=== PATIENT | male | born 1985 | race Two or more races ===

== ENCOUNTER 2024-01-19 11:56 | Outpatient (AMB) | payer OTHER, SELFPAY ==
--- NOTE | 2024-01-19 12:29 | A.OFFPC_ITS ---
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 pt would like to talk about right shoulder and right wrist pain. 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 Will order labs. Pt has a hx of sciatica and a lumbar disc herniation. He also has a hx of tinnitus. Pt's blood pressure is elevated. Will have him monitor his blood pressure at home and drop off readings. [facility] [place] Medical History (Updated 01/19/24 @ 13:16 by FELIPE Lamar-DEBBIE) Tinnitus Sciatica Lumbar disc herniation Social History Housing: House Patient Tobacco Use Status: Former Tobacco user e-Cigarette/Vaping Use: Never Used service: Yes Current occupational status: employed Cognitive needs: No Hearing needs: No Vision needs: No Questionnaire PHQ-9 Over the last 2 weeks, how often have you been bothered by any of the following problems? 1. Little interest or pleasure in doing things: not at all 2. Feeling down, depressed, or hopeless: not at all 3. Trouble falling or staying asleep, or sleeping too much: nearly every day 4. Feeling tired or having little energy: nearly every day 5. Poor appetite or overeating: not at all 6. Feeling bad about yourself - or that you are a failure or have let yourself or your family down: not at all 7. Trouble concentrating on things, such as reading the newspaper or watching television: not at all 8. Moving or speaking so slowly that other people could have noticed. Or the opposite - being so fidgety or restless that you have been moving around a lot more than usual: not at all 9. Thoughts that you would be better off or of hurting yourself in some way: not at all Total score: 6 Depression Screening Interpretation: Negative Depression Screening Done: Yes 32227 - PHQ-9 Billing: Yes Source: Developed by Drs. Kavon Feliz, Belen Lopez, dAalid Smith and colleagues, with an educational fred from [employer]. Thrive Questionnaire Date Thrive assessed: 01/19/24 I am a: Patient What is your living situation today?: I have a steady place to live Within the past 12 months, did the food you bought not last and you didn't have the money to get more?: Never true Within the past 12 months, did you worry whether your food would run out before you got money to buy more?: Never true Do you have trouble paying for medicines?: No Do you have trouble getting transportation to medical appointments?: No Do you have trouble paying your heating and electricity bill?: No Do you have trouble taking care of your child, family member or friend?: No Do you have trouble with day-to-day activities such as bathing, preparing meals, shopping, managing finances, etc.?: No Are you currently unemployed and looking for a job?: No Are you interested in more education?: No Currently or been in a relationship where the following occur: I choose not to answer this question THRIVE Score: 0 AUDIT C Alcohol Use Questionnaire (AUDIT-C) 1. How often do you have a drink containing alcohol?: Monthly or less 2. How many drinks containing alcohol do you have on a typical day when you are drinking?: 1 or 2 3. How often do you have six or more drinks on one occasion?: Never Total Score: 1 Score Reviewed/Action Taken: No PRICE-7 AMB Questionnaire PRICE-7 Date PRICE - 7 assessed: 01/19/24 Feeling nervous, anxious, or on edge: 0 = Not at all Not being able to stop or control worryin = Not at all Worrying too much about different things: 0 = Not at all Trouble relaxin = Not at all Being so restless that it is hard to sit still: 0 = Not at all Becoming easily annoyed or irritable: 0 = Not at all Feeling afraid as if something awful might happen: 0 = Not at all Total PRICE-7 score (0-4 normal; 5-9 mild; 10-14 moderate; 15-21 severe): 0 Source: Developed by Drs. Kavon Feliz, Belen Lopez, Adalid Smith and colleagues, with an educational fred from [employer]. PRICE-7 Assessment Billing PRICE-7 Assessment Tool: PRICE-7 Assessment 95957 Review of Systems Const Denies chills and Denies fever(s) Eyes Denies blurry vision ENT Denies vertigo, Denies dizziness and Denies sore throat Card Denies chest pain at rest, Denies chest pain with activity, Denies diaphoresis, Denies dyspnea and Denies dyspnea on exertion Resp Denies cough, Denies dyspnea, Denies dyspnea on exertion and Denies wheezing GI Denies abdominal pain, Denies melena, Denies hematochezia, Denies constipation, Denies diarrhea and Denies loose stools Denies hematuria Musc Denies numbness and Denies tingling Skin/Breast Denies lesions Neuro Denies vertigo, Denies dizziness, Denies numbness and Denies tingling Psych Denies anxiety, Denies depression, Denies homicidal ideation, Denies suicidal ideation and Denies other (substance abuse) Aller/Immun Denies wheezing Physical exam (Primary Care) Vital Signs: Last Vital Signs Pulse 67 01/19/24 12:32 BP 124/92 H 01/19/24 12:32 Pulse Ox 98 01/19/24 12:32 Oxygen Delivery Method Room Air 01/19/24 12:32 Tobacco/Smoking Status: Tobacco use Status Tobacco use date assessed 01/19/24 01/19/24 12:35 Patient Tobacco Use Status Former Tobacco user 01/19/24 12:35 e-Cigarette/Vaping Use Never Used 01/19/24 12:35 PHQ-9: PHQ-9 Score PHQ-9: Total score 6 01/19/24 12:59 Depression Screening Interpretation: Negative Thrive Assessment: Date of Thrive Assessment Date Thrive assessed 01/19/24 01/19/24 12:40 Currently or been in a relationship where the following occur: I choose not to answer this question Const General: cooperative Nutritional Appearance: well nourished Orientation/consciousness: patient oriented x3 HENMT Head: Yes normal to inspection, Yes normocephalic and Yes atraumatic Ears: TM's normal bilaterally Eyes General: appearance normal, both eyes and all related structures Alignment and Position: alignment normal and position normal Neck Neck: Yes normal visual inspection and Yes no lymphadenopathy Thyroid: Thyroid normal Resp Effort & Inspection: normal respiratory effort Auscultation: clear to auscultation bilaterally Cardio Rate: regular rate Rhythm: regular rhythm Heart sounds: S1 normal heart sound present, S2 normal heart sound present and no murmurs GI Palpation (GI): Soft to palpation and nontender Auscultation: normal bowel sounds Male General Exam: Yes normal external exam Penis: normal penis Scrotum: scrotum normal, testes descended bilaterally and no inguinal hernias Testes: no testicular mass Skin Rashes: no rashes Neuro General: patient oriented x3, moves all extremities, no focal motor deficits and deep tendon reflexes 2+ bilaterally Romberg Test: Negative Psych Appearance: grossly normal Mental Status: mental status grossly normal Speech and movement: Normal speech and movement present Affect: normal affect Attitude: cooperative Thought process: Normal thought process present Thought content: Normal thought content present Insight: Good insight present (Psych) Judgement: Good judgement present (Psych) Assessment and Plan Assessment & Plan (1) Physical exam: Code(s): Z00.00 - Encounter for general adult medical examination without abnormal findings Plan: Labs ordered (2) Elevated BP without diagnosis of hypertension: Code(s): R03.0 - Elevated blood-pressure reading, without diagnosis of hypertension Plan: Will have pt monitor his BP at home and drop off readings Plan The patient agreed to the use of a bio medical technician for this encounter. Scribed for LOULOU Womack by Anitha Crawley bio medical technician, on 01/19/2024 at 12:55 EST. Orders: Orders UA CC w/rflx Micro + Cult Today Z00.00 - Encounter for general adult medical examination without abnormal findings Complete Blood Count Auto Diff Today Z00.00 - Encounter for general adult medical examination without abnormal findings Comprehensive Barton. Panel Fast Today Z00.00 - Encounter for general adult medical examination without abnormal findings TSH reflex Free T4 Today Z00.00 - Encounter for general adult medical examination without abnormal findings Lipid Panel Today Z00.00 - Encounter for general adult medical examination without abnormal findings Coding Level of Care Code New Pt Prev Care 40-64y(83124) Diagnoses Physical exam Z00.00 Elevated BP without diagnosis of hypertension R03.0 Additional Codes PRICE-7 Assessment Billing - PRICE-7 Assessment Tool: PRICE-7 Assessment 58787 ([id number])
[2024-01-19 12:32] VITALS: BP 124/92; PULSE 67; O2SAT 98
[2024-01-19 13:12] VITALS: BP 124/90
== END 2024-01-19 13:23 | disposition home or self-care (01) ==
PROVIDERS: PCP Nurse Practitioner Family; Visit Provider Nurse Practitioner Family
DX: Z00.00 Encounter for general adult medical examination without abnormal findings (principal); R03.0 Elevated blood-pressure reading, without diagnosis of hypertension
CPT/HCPCS: 99386

== ENCOUNTER 2024-07-04 08:34 | Outpatient (AMB) | payer OTHER, SELFPAY ==
--- NOTE | 2024-07-04 07:21 | A.OFFVIS_ITS ---
Intake Visit Reasons: Discuss anxiety iPhone Allergies No Known Allergies Allergy (Verified 01/19/24 12:54) HPI HPI Discuss anxiety iPhone : Details: Patient seems very stressed. He reports very much increased anxiety. He reports he used to have outlet with riding his bike but he can not do this due to wrist discomfort bilat and numbness of his hands bilaterally. I will order EMG testing, denies any resent trauma to hands/wrists. He has already reached out to someone through the and is getting some psychiatric help in the form of a therapist. He denies any SI or HI. He further reports ongoing stressors at home, with his marriage, and other family stressors. I reinforced the importance of him following up with a therapist as he is, and I will start a low-dose Buspar. I will follow up with him in approximately 2 weeks via telehealth. ON LICENSE OF [facility] Medical History (Updated 07/04/24 @ 07:40 by LOULOU Lamar) Tinnitus Sciatica Lumbar disc herniation Social History Housing: House Patient Tobacco Use Status: Former Tobacco user e-Cigarette/Vaping Use: Never Used service: Yes Current occupational status: employed Cognitive needs: No Hearing needs: No Vision needs: No Assessment & Plan Assessment & Plan (1) Bilateral hand numbness: Code(s): R20.0 - Anesthesia of skin Category: Medical Plan: EMG/nerve conduction test in ordered. (2) Anxiety: Code(s): F41.9 - Anxiety disorder, unspecified Category: Medical Plan: starting buspirone, low dose (3) High perceived stress: Code(s): F43.9 - Reaction to severe stress, unspecified Category: Medical Plan Patient has an off a lot of stress going on and very little outlet in the form of biking/exercise currently. He is currently seeking psychiatric help in the form of a therapist via the [facility]. He denies any active suicidal ideation or homicidal ideation. I will start him on a low-dose BuSpar on and follow up with him in the near future. I am having patient access the portal so he can communicate with us as well. He knows he can report to the ER with any worsening symptoms/crisis. Orders: Orders NE electromyogram (EMG) Today R20.0 - Anesthesia of skin NE nerve conduction velocity Today R20.0 - Anesthesia of skin Medications: New buspirone 5 mg PO BID 30 days 60 tabs 2RF Coding Level of Care Code Tele Est Pt Level 3 (68910) Diagnoses Bilateral hand numbness R20.0 Anxiety F41.9 High perceived stress F43.9
== END 2024-07-04 14:05 | disposition home or self-care (01) ==
LOC: HO.HMCC 08:34
PROVIDERS: PCP Nurse Practitioner Family; Visit Provider Nurse Practitioner Family
DX: R20.0 Anesthesia of skin (principal); F41.9 Anxiety disorder, unspecified; F43.9 Reaction to severe stress, unspecified

== ENCOUNTER → 2024-07-04 08:34 | Outpatient (BNVA) | payer OTHER, SELFPAY | PROVIDERS: PCP Nurse Practitioner Family; Visit Provider Nurse Practitioner Family | DX: R20.0 Anesthesia of skin (principal); F41.9 Anxiety disorder, unspecified; F43.9 Reaction to severe stress, unspecified ==

== ENCOUNTER 2024-07-24 06:09 | Outpatient (REF) | payer OTHER, SELFPAY ==
--- NOTE | 2024-07-24 12:05 | EMG_ITS ---
Bilateral median and ulnar motor and sensory studies were performed. Bilateral radial sensory studies were performed. Bilateral median and lateral antecubital brachial sensory studies were performed and paraspinal muscles were tested with a needle. IMPRESSION: Mild bilateral median neuropathy across carpal tunnel. MD ROBERT Lynn/TAMIKO / [id number]
== END 2024-07-24 06:10 | disposition home or self-care (01) ==
LOC: HO.NEURO 06:09
PROVIDERS: PCP Nurse Practitioner Family; Visit Provider Nurse Practitioner Family
DX: R20.0 Anesthesia of skin (principal)
CPT/HCPCS: 95886; 95913

== ENCOUNTER 2024-07-25 11:23 | Outpatient (AMB) | payer OTHER, SELFPAY ==
--- NOTE | 2024-07-25 11:27 | A.OFFPC_ITS ---
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 The onset of these symptoms predates the current visit. The patient was previously prescribed a low dose of medication at 5 mg twice a day, which has been helpful. However, he expresses concerns regarding the persistence of symptoms and inquires about increasing the dosage. He reports that his stress is compounded by work-related pressures and his involvement in the , as well as family challenges, including the possibility of a future divorce. He denies any suicidal ideation, homicidal ideation, chest pain, shortness of breath, blurred vision, headache, or dizziness. The patient has noted a subjective improvement in his general demeanor since the initial visit. He does see a social wo rker/therapist. Social History Health Maintenance Review of Systems - Psychiatric: Reports stress and anxiet y. Denies suicidal ideation or homicidal ideation. - Respiratory: Denies shortness of breat h. - Cardiovascular: Denies chest pain. - Neurological: Denies blurred vision, h eadache, or dizziness. Physical Exam General: Cooperative, healthy appearing, comfortable, no acute distress and well developed Orientation: Patient oriented x3 Limitations: No limitations Head: Normal to inspection Nose: Normal external nose present Face and sinus: Normal facial exam Eyes: Appearance normal, both eyes and all related structures Respiratory: Normal respiratory effort and able to speak in complete sentences. Clear to auscultation bilaterally Cardiovascular: Regular rate and rhythm. Normal S1 and S2 GI: Normal to inspection. Soft to palpation and nontender Neuro: Patient oriented x3 Extremities: Normal to inspection psych: A+Ox3, calm, good judgement, good thought process Results Plan - Stress and Anxiety: I will consider in creasing the current medication dosage to 10 mg twice a day to better manage the patient?s anxiety and stress levels. Patient was informed and verbally consented to the use of an ambient scribe for clinic note documentation during this visit. Discussion Notes I discussed the ongoing management of the patient's stress and anxiety. We reviewed the potential increase in medication dosage to 10 mg twice a day. Risks, benefits, and potential side effects of increasing the medication were explained to the patient. The patient did not express any concerns regarding this plan and verbalized understanding. Follow-up visits and considerations for adjustments in therapy may be necessary based on the patient's response to the adjusted dosage. Patient Instructions [facility] Medical History Tinnitus Sciatica Lumbar disc herniation Surgical History No pertinent past surgical history Social History Housing: House Patient Tobacco Use Status: Former Tobacco user e-Cigarette/Vaping Use: Never Used service: Yes Current occupational status: employed Cognitive needs: No Hearing needs: No Vision needs: No Questionnaire PHQ-9 Over the last 2 weeks, how often have you been bothered by any of the following problems? 1. Little interest or pleasure in doing things: several days 2. Feeling down, depressed, or hopeless: not at all 3. Trouble falling or staying asleep, or sleeping too much: more than half the days 4. Feeling tired or having little energy: several days 5. Poor appetite or overeating: several days 6. Feeling bad about yourself - or that you are a failure or have let yourself or your family down: not at all 7. Trouble concentrating on things, such as reading the newspaper or watching television: not at all 8. Moving or speaking so slowly that other people could have noticed. Or the opposite - being so fidgety or restless that you have been moving around a lot more than usual: not at all 9. Thoughts that you would be better off or of hurting yourself in some way: not at all Total score: 5 Depression Screening Interpretation: Negative Depression Screening Done: Yes 77269 - PHQ-9 Billing: Yes Source: Developed by Drs. Kavon Feliz, Belen Lopez, Adalid Smith and colleagues, with an educational fred from [facility]. Thrive Questionnaire Date Thrive assessed: 07/25/24 I am a: Patient What is your living situation today?: I have a steady place to live Within the past 12 months, did the food you bought not last and you didn't have the money to get more?: Never true Within the past 12 months, did you worry whether your food would run out before you got money to buy more?: Never true Do you have trouble paying for medicines?: No Do you have trouble getting transportation to medical appointments?: No Do you have trouble paying your heating and electricity bill?: No Do you have trouble taking care of your child, family member or friend?: No Do you have trouble with day-to-day activities such as bathing, preparing meals, shopping, managing finances, etc.?: No Are you currently unemployed and looking for a job?: No Are you interested in more education?: No Please select the resources that you would like help with: None Currently or been in a relationship where the following occur: No concerns reported THRIVE Score: 0 AUDIT C Alcohol Use Questionnaire (AUDIT-C) 1. How often do you have a drink containing alcohol?: 2-4 times a month 2. How many drinks containing alcohol do you have on a typical day when you are drinking?: 1 or 2 3. How often do you have six or more drinks on one occasion?: Never Total Score: 2 Score Reviewed/Action Taken: Yes PRICE-7 AMB Questionnaire PRICE-7 Date PRICE - 7 assessed: 07/25/24 Feeling nervous, anxious, or on edge: 2 = More than half the days Not being able to stop or control worryin = Several days Worrying too much about different things: 2 = More than half the days Trouble relaxin = Several days Being so restless that it is hard to sit still: 1 = Several days Becoming easily annoyed or irritable: 1 = Several days Feeling afraid as if something awful might happen: 0 = Not at all Total PRICE-7 score (0-4 normal; 5-9 mild; 10-14 moderate; 15-21 severe): 8 Source: Developed by Drs. Kavon Feliz, Belen Lopez, Adalid Smith and colleagues, with an educational fred from [facility]. PRICE-7 Assessment Billing PRICE-7 Assessment Tool: PRICE-7 Assessment 96198 Physical exam (Primary Care) Vital Signs: Last Vital Signs Pulse 73 07/25/24 11:29 BP 122/82 07/25/24 11:29 Pulse Ox 98 07/25/24 11:29 BMI result Body Mass Index 28.8 Tobacco/Smoking Status: Tobacco use Status Tobacco use date assessed 01/19/24 07/25/24 11:27 Patient Tobacco Use Status Former Tobacco user 07/25/24 11:27 e-Cigarette/Vaping Use Never Used 07/25/24 11:27 PHQ-9: PHQ-9 Score PHQ-9: Total score 5 07/25/24 11:32 Depression Screening Interpretation: Negative Thrive Assessment: Date of Thrive Assessment Date Thrive assessed 07/25/24 07/25/24 11:32 Currently or been in a relationship where the following occur: No concerns reported Coding Level of Care Code Est Pt Level 3 (64568) Diagnoses High perceived stress F43.9 Anxiety F41.9 Additional Codes PRICE-7 Assessment Billing - PRICE-7 Assessment Tool: PRICE-7 Assessment 15496 ([id number]) PHQ-9 - 39885 - PHQ-9 Billing: Yes ([id number]) Assessment & Plan Assessment & Plan (1) High perceived stress: Code(s): F43.9 - Reaction to severe stress, unspecified Category: Medical (2) Anxiety: Code(s): F41.9 - Anxiety disorder, unspecified Category: Medical Plan . Medications: Changed From buspirone 5 mg PO BID 30 days 60 tabs 2RF To buspirone 10 mg PO BID 30 days 60 tabs 2RF
[2024-07-25 11:29] VITALS: BP 122/82; PULSE 73; O2SAT 98; BMI 28.8
--- OUTSIDE RECORDS SUMMARY | 2024-07-26 01:37 | XMS_ITS | Continuity of Care Document ---
Author Name [facility] Organization DOD-MS Care Team Providers Care Benefits Counselor Name Role Phone [facility] Unavailable Unavailable Problems Combined list of problems from Department of Defense and Veterans Affairs facilities. It does not include entries that were removed or entered in error. Problem Status Onset Date Problem Type Date of Resolution Comments Source Low back pain Active 9 Condition DoD Flat foot [pes planus] (acquired), unspecified foot Active 9 Condition DoD Spinal stenosis, lumbar region with neurogenic claudication Active 9 Condition DoD Other intervertebral disc displacement, lumbar region Active 9 Condition DoD Lumbago with sciatica, right side Active 9 Condition DoD Regular astigmatism, left eye Active Condition DoD Hypermetropia, right eye Active Condition DoD Regular astigmatism, bilateral Active Condition DoD Hypermetropia, bilateral Active Condition DoD Encounter for surgical aftercare following surgery on the sense organs Active Condition DoD postsurgical state of eye and adnexa both Active Condition DoD visit for: postsurgical exam Active Condition DoD refractive error myopia bilateral Active Condition DoD astigmatism bilateral Active Condition DoD visit for: preoperative exam Active Condition DoD Need For Prophylactic Antibiotics Inactive Condition DoD Patient Counseling: Active Condition DoD assess patient condition work-related occupational disease Inactive Condition ASSESS PATIENT CONDITION WORK-RELATED OCCUPATIONAL DISEASE (INITIAL POST-DEPLOYMENT ASSESSMENT: DOCUMENTED ON [id number]): No concerns, see below. DoD joint pain, localized in the shoulder Inactive Condition joint pain, localized in the shoulder: The ttp at AC does not reliably reproduce pt''s pain. Based on MIKEY, pain with specific positions and reproduction with load shift, favor labral injury as origin of pain. Pt with mild pain with all rotator cuff testing without deficits, low concern for rotator cuff injury. Suspect generalized inflammation of joint and subacromial anatomy. Recommended rest, ice, anti inflammtory. rEcommended rehab exercises and handout for subacromial bursitis for generalized findings. Otherwise recommended against any activity that causes pain, no return to weight training until full ROM without pain and at that point gradual return. F/u at 2 weeks if no change in pain. DoD visit for: services physical pre-deployment Active Condition DoD lump in / on the skin Active Condition DoD dermatomycosis tinea versicolor Inactive Condition DoD astigmatism regular Active Condition DoD astigmatism Active Condition DoD refractive error - myopia Active Condition DoD visit for: occupational health / fitness exam Active Condition DoD warts genital Inactive Condition DoD metatarsalgia Active Condition DoD Administrative Evaluation Services Active Condition DoD visit for: administrative purpose Active Condition DoD visit for: issue medical certificate Active Condition DoD location of accident - residential institution Inactive Condition DoD a fall after striking furniture Inactive Condition DoD contusion with intact skin surface - hand right Inactive Condition DoD visit for: services flight physical Active Condition 22 yo male h ere for incentive flight physical. No c/o. No issues found. Pt briefed on policies for flight including no contact lens wear, no scuba diving, and to see flight surgeon for any illness or injury before the flight. Pt is cleared for incentive flight below 18,000 feet. RTC prn. AF Form 1042 completed and given to patient. DoD visit for: services physical Inactive Condition visit for: services physical (POST-DEPLOYMEN T EXAMINATION): DHRA#2 following deployment to [employer] [facility] [employer] [facility] [employer]. Member has mentioned no complaints or concerns.DHRA#2 completed in ASIMS, see text in 1451.0Z DoD foot pain (soft tissue) Active Condition Continue meds from ER. DoD no psychiatric diagnosis or condition on axis I Inactive Condition DoD Guidance: Concerns About Alcohol Use Inactive Condition DoD Guidance: Concerns About Illicit Drug Use Inactive Condition DoD Patient Education Dietary Inactive Condition DoD Guidance: Concerns About Inadequate Physical Activity Inactive Condition DoD Medications Combined list of outpatient medications from Department of Defense and Veterans Affairs facilities.Medications provided include 1) outpatient medications from the last 15 months, and 2) patient-reported medications. Medication Details Route Status Patient Instructions Prescription Expires Prescription Number Last Dispense Date Ordering Provider Order Date Order Qty Source CLOBETASOL PROPIONATE (clobetasol propionate) , 0.05 %, CREAM (G), TOPICAL, ENCUBE ETHICALS, 45 g TUBE Active [id number] 2023 45 Pharmac y Data Transac tion Service Facilit y FLUCELVAX QUAD 8259-4954 (flu vaccine quad 0599-3236(6 month and older)cell derived/PF) , 60MCG/.5ML, SYRINGE, INTRAMUSC, SEQIRUS, INC., .5 ml SYRINGE Active [id number] 4 2023 0.5 Pharmac y Data Transac tion Service Facilit y Allergies, Adverse Reactions, Alerts Combined list of allergies from Department of Defense and Veterans Affairs facilities. It does not include entries that were removed or entered in error. Substance Category Reaction Severity Reaction type Status Date Reported Comments Source NO OUTPUT FOR NCID [id number] Drug allergy (disorder) active 05/07/2008 [facility] Immunizations Combined list of available immunizations from the Department of Defense and Veterans Affairs facilities. Immunization Series Date Given Administered By Site Reaction Lot Number CVX Code Drug Filler Shredder Machine Status Comments Source SARS-COV-2 (COVID-19) vaccine, mRNA, spike protein, LNP, preservative free, 30 mcg/0.3mL dose 3 2021 SEGUN FRANCISCO V [id number] [employer], [employer] (PFR) complet ed SARS-COV- 2 (COVID-19 ) vaccine, mRNA, spike protein, LNP, preservat marely free, 30 mcg/0.3mL dose DoD anthrax vaccine 7 2020 [id number] Emergent [employer] [facility] ([facility]) complet ed anthrax vaccine DoD Influenza, injectable, quadrivalent, preservative free 1 2020 [id number] 150 SmithKline (SKB) complet ed Influenza , injectabl e, quadrival ent, preservat marely free DoD SARS-COV-2 (COVID-19) vaccine, mRNA, spike protein, LNP, preservative free, 30 mcg/0.3mL dose 2 2020 JOSE MARTIN DOWELL [id number] Pfizer, [employer] (PFR) complet ed SARS-COV- 2 (COVID-19 ) vaccine, mRNA, spike protein, LNP, preservat marely free, 30 mcg/0.3mL dose DoD SARS-COV-2 (COVID-19) vaccine, mRNA, spike protein, LNP, preservative free, 30 mcg/0.3mL dose 1 2020 [id number] 208 [employer], [employer] (PFR) complet ed SARS-COV- 2 (COVID-19 ) vaccine, mRNA, spike protein, LNP, preservat marely free, 30 mcg/0.3mL dose DoD typhoid Vi capsular polysaccharid e vaccine 4 2019 [id number] Sanofi Pasteur ([facility]) complet ed typhoid Vi capsular polysacch aride vaccine DoD meningococcal polysaccharid e (groups A, C, Y and W-135) diphtheria toxoid conjugate vaccine (MCV4P) 3 2019 [id number] 114 Sanofi Pasteur ([facility]) complet ed meningoco ccal polysacch aride (groups A, C, Y and W-135) diphtheri a toxoid conjugate vaccine (MCV4P) DoD anthrax vaccine 7 2019 [id number] 24 [facility] ([facility]) complet ed anthrax vaccine DoD Influenza, injectable, quadrivalent, preservative free 1 2019 [id number] 150 Seqirus (SEQ) complet ed Influenza , injectabl e, quadrival ent, preservat marely free DoD [place] Encephalitis vaccine for intramuscular administratio n 3 2018 [id number] 134 Valneva (SUGEY) complet ed [place] Encephali tis vaccine for intramusc ular administr ation DoD Influenza, injectable, quadrivalent, preservative free 1 2018 [id number] 150 Seqirus (SEQ) complet ed Influenza , injectabl e, quadrival ent, preservat marely free DoD [place] Encephalitis vaccine for intramuscular administratio n 2 2017 [id number] 134 Valneva (SUGEY) complet ed [place] Encephali tis vaccine for intramusc ular administr ation DoD [place] Encephalitis vaccine for intramuscular administratio n 1 2017 [id number] 134 Valneva (SUGEY) complet ed [place] Encephali tis vaccine for intramusc ular administr ation DoD Influenza, injectable, quadrivalent, preservative free 17 2017 [id number] 150 SmithKline (SKB) complet ed Influenza , injectabl e, quadrival ent, preservat marely free DoD Influenza, injectable, Madin [place] Canine Kidney, preservative free, quadrivalent 16 2016 [id number] 171 Seqirus (SEQ) comple t ed Influenza , injectabl e, Madin [place] Canine Kidney, preservat marely free, quadrival ent DoD Influenza, seasonal, injectable, preservative free 15 2015 [id number] 140 Seqirus (SEQ) comple t ed Influenza , seasonal, injectabl e, preservat marely free DoD influenza, live, intranasal, quadrivalent 14 2014 [id number] 149 Tasty Labs, [employer]. (MED) complet ed influenza , live, intranasa l, quadrival ent DoD yellow fever vaccine 1 2013 [id number] 37 Sanofi Pasteur (PMC) complet ed yellow fever vaccine DoD typhoid Vi capsular polysaccharid e vaccine 3 2013 [id number] Sanofi Pasteur (PMC) complet ed typhoid Vi capsular polysacch aride vaccine DoD meningococcal polysaccharid e (groups A, C, Y and W-135) diphtheria toxoid conjugate vaccine (MCV4P) 2 2013 [id number] 114 Sanofi Pasteur (PMC) complet ed meningoco ccal polysacch aride (groups A, C, Y and W-135) diphtheri a toxoid conjugate vaccine (MCV4P) DoD Influenza, seasonal, injectable, preservative free 13 2013 [id number] 140 Novartis [place]. (NOV) complet ed Influenza , seasonal, injectabl e, preservat marely free DoD measles, mumps and rubella virus vaccine 1 2013 [id number] 03 Merck (MSD) complet ed measles, mumps and rubella virus vaccine DoD anthrax vaccine 6 2013 [id number] 24 [employer] [place] ([facility]) complet ed anthrax vaccine DoD influenza, live, intranasal, quadrivalent 12 2012 [id number] 149 [employer] Labs, [employer]. (MED) complet ed influenza , live, intranasa l, quadrival ent DoD anthrax vaccine 5 2011 [id number] [employer] [place] ([facility]) complet ed anthrax vaccine DoD typhoid Vi capsular polysaccharid e vaccine 2 2011 [id number] 101 Sanofi Pasteur (PMC) complet ed typhoid Vi capsular polysacch aride vaccine DoD influenza virus vaccine, live, attenuated, for intranasal use 11 2011 [id number] 111 [employer]. (MED) complet ed influenza virus vaccine, live, attenuate d, for intranasa l use DoD tetanus toxoid, reduced diphtheria toxoid, and acellular pertu is vaccine, adsorbed 1 2011 [id number] 115 [facility] (SKB) complet ed tetanus toxoid, reduced diphtheri a toxoid, and acellular pertussis vaccine, adsorbed DoD influenza virus vaccine, live, attenuated, for intranasal use 1 2010 [id number] 111 [employer], [employer]. (MED) complet ed influenza virus vaccine, live, attenuate d, for intranasa l use DoD influenza virus vaccine, live, attenuated, for intranasal use 1 2009 [id number] 111 T[employer] Labs, Inc. (MED) complet ed influenza virus vaccine, live, attenuate d, for intranasa l use DoD Novel influenza-H1N 1-09, injectable 1 2008 [id number] 127 [employer]. (NOV) complet ed Novel influenza -J0L1-66, injectabl e DoD influenza virus vaccine, live, attenuated, for intranasal use 1 2008 [id number] 111 [employer] [place]. (MED) complet ed influenza virus vaccine, live, attenuate d, for intranasa l use DoD anthrax vaccine 5 2008 [id number] 24 [employer] [place] (MIP) complet ed anthrax vaccine DoD influenza virus vaccine, live, attenuated, for intranasal use 1 2007 [id number] 111 [employer] [place]. (MED) complet ed influenza virus vaccine, live, attenuate d, for intranasa l use DoD anthrax vaccine 4 2007 [id number] 24 [employer] [place] (MIP) complet ed anthrax vaccine DoD anthrax vaccine 3 2007 [id number] 24 [employer] [place] (MIP) complet ed anthrax vaccine DoD anthrax vaccine 2 2007 [id number] 24 [employer] [place] (MIP) complet ed anthrax vaccine DoD anthrax vaccine 1 2006 [id number] 24 [employer] [place] (MIP) complet ed anthrax vaccine DoD vaccinia (smallpox) vaccine 1 2006 [id number] 75 Valerie (LEENA) complet ed vaccinia (smallpox ) vaccine DoD typhoid Vi capsular polysaccharid e vaccine 1 2006 [id number] 101 Sanofi Pasteur (PMC) complet ed typhoid Vi capsular polysacch aride vaccine DoD influenza virus vaccine, live, attenuated, for intranasal use 1 2006 [id number] 111 [employer], Inc. (MED) complet ed influenza virus vaccine, live, attenuate d, for intranasa l use DoD influenza virus vaccine, split virus (incl. purified surface antigen)-reti red CODE 1 2005 [id number] 15 Sanofi Pasteur ([facility]) complet ed influenza virus vaccine, split virus (incl. purified surface antigen)- retired CODE DoD influenza virus vaccine, split virus (incl. purified surface antigen)-reti red CODE 1 2004 [id number] 15 Sanofi Pasteur ([facility]) complet ed influenza virus vaccine, split virus (incl. purified surface antigen)- retired CODE DoD influenza virus vaccine, whole virus 1 2004 [id number] 16 Sanofi Pasteur ([facility]) complet ed influenza virus vaccine, whole virus DoD influenza virus vaccine, whole virus 0 2004 [id number] 16 Sanofi Pasteur ([facility]) complet ed influenza virus vaccine, whole virus DoD influenza virus vaccine, whole virus 0 2002 [id number] 16 [employer] Pharm[employer] (PWJ) complet ed influenza virus vaccine, whole virus DoD hepatitis A and hepatitis B vaccine 3 2002 [id number] 104 [employer]Tipp24ine (SKB) complet ed hepatitis A and hepatitis B vaccine DoD hepatitis A and hepatitis B vaccine 2 2002 [id number] 6 104 SmithKline (SKB) complet ed hepatitis A and hepatitis B vaccine DoD measles, mumps and rubella virus vaccine 0 2002 [id number] 03 Merck (MSD) complet ed measles, mumps and rubella virus vaccine DoD varicella virus vaccine 1 2002 21 () Not Given varicella virus vaccine DoD hepatitis A and hepatitis B vaccine 1 2002 [id number] 104 SmithKline (SKB) complet ed hepatitis A and hepatitis B vaccine DoD tetanus and diphtheria toxoids, adsorbed, preservative free, for adult use (2 Lf of tetanus toxoid and 2 Lf of diphtheria toxoid) 0 2002 [id number] 09 Sanofi Pasteur ([facility]) complet ed tetanus and diphtheri a toxoids, adsorbed, preservat marely free, for adult use (2 Lf of tetanus toxoid and 2 Lf of diphtheri a toxoid) DoD poliovirus vaccine, inactivated 0 2002 [id number] 10 Sanofi Pasteur (PMC) complet ed polioviru s vaccine, inactivat ed DoD influenza virus vaccine, whole virus 0 2002 [id number] 16 Sanofi Pasteur (PMC) complet ed influenza virus vaccine, whole virus DoD meningococcal polysaccharid e vaccine (MPSV4) 0 2002 [id number] 32 Sanofi Pasteur (PMC) complet ed meningoco ccal polysacch aride vaccine (MPSV4) DoD Encounters Combined list of: 1) Encounters from Department of Veterans Affairs facilities going back up to thelast 18 months. 2) Encounters from the Department of Defense facilities going back up to 280 months. Location Location Details Encounter Type Encounter Number Reason For Visit Attending Provider ADM Date DC Date Status Disposition Source [employer]([facility]) OUTPATIENT [id number] MARGARETH Wallace 09/01 Released w/o Limitations [employer]([facility]) [employer]([facility]) OUTPATIENT [id number] MONICA RICHARDS 09/16 Released w/o Limitations [employer]([facility]) [employer] [facility]) OUTPATIENT [id number] f/u lt foot injury 07/18 Released with Work/Duty Limitations [employer]([facility]) [employer] [facility]) OUTPATIENT [id number] pre-dep loyment ALEK DYE 08/11 Released w/o Limitations [employer] [facility]) [facility]) OUTPATIENT [id number] ALEK Hutson 09/01 Released w/o Limitations [employer] [facility]) [employer]([facility] [place]) OUTPATIENT [id number] Incenti ve BRENNEN Kiser 11/08 Released w/o Limitations [employer]([facility] light Medicin e [place]) [facility] OUTPATIENT [id number] melissa leo color vision test HAILEE BOOTH 05/07 Released w/o Limitations [employer] [facility]) [facility] [facility] ) OUTPATIENT [id number] MITCHEL FRAZIER 05/21 Released w/o Limitations [employer]([facility] Emer[facility]) [facility] [facility] OUTPATIENT [id number] PHA SERAFIN DAIGLE 10/15 Released w/o Limitations [employer] [facility] [employer]([facility]) [employer](War rior Operation al Med [facility]) OUTPATIENT [id number] [place] RIN AMBRIZ S 01/01 Released w/o Limitations [employer](W arrior Operati onal Med [facility]) [facility] [facility] [place]PAT[place] [id number] [place] JAMMIE Murillo 01/01 Released w/o Limitations [facility] [employer]([facility]) OUTPATIENT [id number] pha THEODORE LUNSFORD 08/28 Released w/o Limitations [employer]([facility]) [employer]([facility]) TELE CONSULT [id number] 72hr/NO ROUTINE S/Left foot pain NADIRA MANZANARES 09/18 [employer]([facility]) [employer]([facility] Mental Health [facility]) OUTPATIENT [id number] pain in foot CARROL GRANT 09/25 Released w/o Limitations [employer]([facility] Mental [facility]) [employer](Z _Med_Occ_ Clin_Cont act) OUTPATIENT [id number] PHASE [place]...ASHANTI MCDERMOTT 10/09 Released with Work/Duty Limitations [employer]([facility]_Med_ Occ_Cli n_Conta ct) [facility]([facility]) OUTPATIENT [id number] Annual Audiogr am CRUZITO COWAN 10/09 Released w/o Limitations [employer]([facility]) [facility] [facility]) OUTPATIENT [id number] eye exam LEANNE COLLIER 11/03 Released w/o Limitations [employer](O ptometr y Clinic) [facility]([facility]) OUTPATIENT [id number] Retrain CHRISSY Elizabeth 03/10 Released w/o Limitations [facility]([facility]) [employer]([facility] Mental Health [facility]) OUTPATIENT [id number] PHA BURTON OCONNELL 08/25 Released w/o Limitations [employer]([facility]) [employer]([facility]) OUTPATIENT [id number] injured right foot playing basketb INDIGO Marie 09/16 Released with Work/Duty Limitations [facility]([facility]) [facility]([facility]) OUTPATIENT [id number] Annual Audiogr am CHRISSY BERGMAN 10/19 Released w/o Limitations [facility] [facility]) [employer]([facility]) OUTPATIENT [id number] r/mid foot/ still hurting when putting pressur e on CARROL GRANT 10/21 Released with Work/Duty Limitations [employer]([facility]) [facility] [facility]) OUTPATIENT [id number] routine eye exam and renewal of contact s LEANNE COLLIER 12/15 Released w/o Limitations [employer](O ptometr y Clinic) [employer] [facility]) OUTPATIENT [id number] pha-mos YOVANNY NORRIS 09/02 Released w/o Limitations [employer]([facility] [place] [facility]) [employer] [facility]) OUTPATIENT [id number] eye exam, contact s NONA LUCIANO 01/16 Released w/o Limitations [employer] [facility](O ptometr y Clinic) [employer] OUTPATIENT [id number] discuss changes in mole on lower right jaw YOVANNY NORRIS 03/28 Released w/o Limitations [employer] [facility] [facility]) OUTPATIENT [id number] LISA WHITE 05/30 Released w/o Limitations [employer] [facility](P sycholo gy Clinic) [employer] OUTPATIENT [id number] pre deploym ent YOVANNY NORRIS 06/15 Released w/o Limitations [facility] [facility] OUTPATIENT [id number] Theater Provider 08/23 Released w/o Limitations [facility] OUTPATIENT [id number] Theater Provider 12/31 Released w/o Limitations Theater [facility] [facility]) OUTPATIENT [id number] Notes Entered by: JOVITA HOLDER 09 Jan 2013 1338 ------- ------- ------- ------- -- annual ANKITANONA 01/09 Released w/o Limitations [employer] [facility](O ptometr y Clinic) [employer]([facility]) OUTPATIENT [id number] YOVANNY DODGE 01/12 Released w/o Limitations [employer]([facility] [place] [facility]) [employer](Dep loyment Health Assessmen t) OUTPATIENT [id number] post deploym ent ROYAL CRAWFORD 04/12 Released w/o Limitations [employer](D eployme nt Health Assessm ent) [employer] [facility] OUTPATIENT [id number] audiogr am ROYAL CRAWFORD 05/01 Released w/o Limitations [employer](P ublic Health Clinic) [employer](Dep loyment Health Assessmen t) TELE CONSULT [id number] Notes Entered by: ROYAL CRAWFORD 14 Sep 2013 1444 ------- ------- ------- ------- -- Malaria meds ROYAL CRAWFORD 09/14 [employer](D eployme nt Health Assessm ent) [employer]([facility]) OUTPATIENT [id number] YOVANNY Dodge 12/18 Released w/o Limitations [employer]([facility] [place] [facility]) [employer] [facility] OUTPATIENT [id number] DHA4 MIKAYLA SANCHEZ 01/08 Released w/o Limitations [employer](F light Medicin e Clinic) [employer](Dep loyment Health Assessmen t) OUTPATIENT [id number] [facility] SRINIVAS ANDRADE 02/18 Released w/o Limitations [employer](D eployme nt Health Assessm ent) [facility] [facility]) OUTPATIENT [id number] last minute deploye BRITNI Anders Rigo 02/20 Released w/o Limitations [employer](O ptometr y Clinic) [facility] [facility](Psy [facility]ology Clinic) OUTPATIENT [id number] Notes Entered by: LALA DONALDSON 21 Feb 2014 0809 ------- ------- ------- ------- -- LISA WHITE 02/21 Released w/o Limitations [employer] [facility](P sycholo gy Clinic) [facility] OUTPATIENT [id number] Theater Provider 05/28 Released w/o Limitations Theater Facilit y [employer](Dep loent Health Assessmen t) TELE CONSULT [id number] Notes Entered by: KENDALL 21 Aug 2014 1335 ------- ------- ------- ------- -- Malaria Meds MELQUIADES DOLL 08/21 [employer](D eployme nt Health Assessm ent) [employer]([facility] Health [facility]essmen t) OUTPATIENT [id number] MELQUIADES JIMENES 09/10 Released w/o Limitations [employer](D eployme nt Health Assessm ent) [employer]([facility]) OUTPATIENT [id number] PHA RAMONA NAVARRO 09/10 Released w/o Limitations [employer]([facility] [place] [facility]) [employer]([facility]) OUTPATIENT [id number] back pain RAMONA NAVARRO 09/13 Released w/o Limitations [employer] [facility] [employer]([facility]) TELE CONSULT [id number] Notes Entered by: ZAINAB NAVARRO 16 Sep 2014 0825 ------- ------- ------- ------- -- PT REFERAL PAYAM ANTONY 09/16 [employer](Opt [facility]metry Clinic) OUTPATIENT [id number] CRS Workup/ bring paperwo rk/no contact s ARANMOLATE , LAURA A 01/28 Released w/o Limitations [address] [place] [address](O ptometr y Clinic) [facility] OUTPATIENT [id number] CRS PRE OP COLGAINDIGO DUNCAN 03/07 Released w/o Limitations [facility]( [facility]) [facility]) OUTPATIENT [id number] CONSENT BRIEFIN G ESTEFANI FULLER 03/17 Released with Work/Duty Limitations [facility] OUTPATIENT [id number] PRK ESTEFANI FULLER 03/20 Released with Work/Duty Limitations [facility]( [facility]) [facility]) OUTPATIENT [id number] DAY PO COLINDIGO WHITTAKER 03/24 Released with Work/Duty Limitations [facility]( [facility]) [facility]) OUTPATIENT [id number] Notes Entered by: ANTONIO ROSALES 26 Mar 2015 0933 ------- ------- ------- ------- -- Eye discomf ort after PRK COLGAINDIGO DUNCAN 03/26 Released w/o Limitations [facility]( [facility]) [address] [place] [address](Opt ometry Clinic) OUTPATIENT [id number] S/p PRK bandage contact ARANMOLATE , LAURA A 03/28 [facility](O ptometr y Clinic) [address] [place] [address](Opt ometry Clinic) OUTPATIENT [id number] s/p prk ARANMOLATE , LAURA A 05/07 [facility](O ptometr y Clinic) [address] [place] [address](Opt ometry Clinic) OUTPATIENT [id number] 2 mos s/p PRK ARANMOLATE , LAURA A 06/03 Released w/o Limitations [employer](O ptometr y Clinic) [employer](Opt ometry Clinic) OUTPATIENT [id number] s/p prk 3 mos/res c from BRITTKATHLEEN LAURA A 07/09 Released w/o Limitations [employer](O ptometr y Clinic) [employer](Dep [facility]) OUTPATIENT [id number] DHA4 MELQUIADES DOLL 09/03 Released w/o Limitations [employer](D eployme Health Assessm ent) [employer](PHA Cell) OUTPATIENT [id number] Notes Entered by: JUANITA COONEY 17 Sep 2015 1030 ------- ------- ------- ------- -- PHA Record Review RAMONA NAVARRO 09/17 Released w/o Limitations [employer](P [place] Cell) [employer](Opt ometry Clinic) OUTPATIENT [id number] s/p prk LINNEA LAURA A 10/26 Released w/o Limitations [employer](O ptometr y Clinic) [employer](Pub lic Health Clinic) OUTPATIENT [id number] Notes Entered by: EVELYN MURDOCK 10 Dec 2015 1411 ------- ------- ------- ------- -- Occupat ional Audiogr am MELQUIADES DOLL 12/09 Released w/o Limitations [employer](P ublic Health Clinic) [employer](Tao er [facility] Team [facility]) OUTPATIENT [id number] hurt lower back lastnig ht at PT, causing pain MELQUIADES DOLL 12/29 Released w/o Limitations [employer](D over [facility] Team Avery s) [employer](y sical Therapy Clinic) OUTPATIENT [id number] Muscle spasm of back TONY CATHERINE 12/31 Released w/o Limitations [employer](P hysical Therapy Clinic) [employer]([facility] sical Therapy Clinic) OUTPATIENT [id number] TONY CATHERINE 01/13 Released w/o Limitations [employer](P hysical Therapy Clinic) [employer](BOM C Medical) OUTPATIENT [id number] ERLIN SHEPHERD 09/24 Released w/o Limitations [employer]([facility] ) [employer](PHA Cell) OUTPATIENT [id number] Notes Entered by: Obed RENEE 24 Sep 2016 1423 ------- ------- ------- ------- -- KALIE NEELY 09/24 Released w/o Limitations [employer](P [place] Cell) [employer](Opt ometry Clinic) OUTPATIENT [id number] 1 year s/p MERCEDEZ Santacruz 10/20 Released w/o Limitations [employer](O ptometr y Clinic) [employer](FBN A [place]) OUTPATIENT [id number] Notes Entered by: NICHOLAS BLACK 08 Nov 2016 1449 ------- ------- ------- ------- -- Occupat ional Audiogr am MARIBEL SNYDER 11/08 Released w/o Limitations [employer](F BNA [place]) [employer](FBN [facility] [place]) OUTPATIENT [id number] Notes Entered by: RIRI PASTOR 31 Oct 2017 0753 ------- ------- ------- ------- -- Annual Audiogr am RIRI PASTOR 10/31 Released w/o Limitations [employer](F BNA [place]) [employer](BOM C Medical) OUTPATIENT [id number] ERLIN SALAZAR 02/02 Released w/o Limitations [employer]([facility] ) [employer](BOM C Medical) OUTPATIENT [id number] VIRTUAL MIKE: PHA RR (DO NOT CALL PT) NORMA RADFORD 03/02 Released w/o Limitations [employer]([facility] ) [employer](BOM C Medical) TELE CONSULT [id number] Notes Entered by: MAURO WALLACE 15 May 2018 1522 ------- ------- ------- ------- -- [facility] MAURO Santoyo 05/15 Referred for Appointment [address] [place] [address]([address] [facility] ) [facility]) OUTPATIENT [id number] 2 LOWER BACK PAIN (02/21) X 2 DAY RICHARDCHERI Chad 11/13 Released w/o Limitations [facility] ([facility]) [facility](P hysical Therapy Clinic) OUTPATIENT [id number] 3 Low back pain ERLIN LUNDBERG 12/06 Released with Work/Duty Limitations [facility] (Physic al Therapy Clinic) [facility]) TELE CONSULT [id number] Notes Entered by: BELA JEONG 10 Jan 2019 1010 ------- ------- ------- ------- -- Update profile LUTHER FLOOD ROSAMARIA 01/10 Other Not Elsewhere Classified [facility] ([facility]) [facility]) OUTPATIENT [id number] 3 Notes Entered by: FLAKO RAMIREZ 15 Jan 2019 1028 ------- ------- ------- ------- -- STREP SWAB HECTOR BOONE 01/15 Released w/o Limitations [facility] ([facility]) [facility](P hysical Therapy Clinic) OUTPATIENT [id number] 1 LBP ERLIN LUNDBERG 01/17 Released with Work/Duty Limitations [facility] (Physic al Therapy Clinic) [facility]( a Hearing Conservat ion) OUTPATIENT [id number] Audiogr am KATHLEEN MATSON 01/18 Released w/o Limitations [facility] ( Hearing Conserv ation) [facility](P hysical Therapy Clinic) OUTPATIENT [id number] LBP ERLIN LUNDBERG 02/26 Released w/o Limitations [facility] (Physic al Therapy [facility]) [place]) OUTPATIENT [id number] WING PEREZ 03/22 Released w/o Limitations [facility] ([facility]) [place]) OUTPATIENT [id number] 5 f/u LUNDBERGERLIN AZAR 04/09 Released w/o Limitations [facility] ([facility]) [facility] OUTPATIENT [id number] Notes Entered by: Sridhar LUDWIG 04 Jun 2019 0800 ------- ------- ------- ------- -- [facility] PHA/CHERI Rust 06/03 Released w/o Limitations [facility] ([facility]) [facility]) OUTPATIENT [id number] PT REPORTS PAIN IN BASE OF NECK/LI MITED RANGE OF MOTION FLAQUITO EDGAR 06/27 Released w/o Limitations [facility] ([facility]) [facility] A [facility]) OUTPATIENT [id number] Notes Entered by: BELA JEONG 28 Jun 2019 1531 ------- ------- ------- ------- -- Race on face ANA PAULA RUBIO 06/28 Released w/o Limitations [facility] ([facility] A [facility]) [place] D Team) OUTPATIENT [id number] 1 TWEAKED LT SIDE OF BACK; SHARP PX FROM CYATIC; NEW ISSUE ON LT SIDE CHERI RICHARD 04/16 [facility]ased w/o Limitations [facility]) [place] Chiroprac tic Clinic) OUTPATIENT [id number] virtual chiro [id number] MONICA ERWIN 04/23 [place]ased w/o Limitations [place] [facility] [place] Chiroprac tic Clinic) TELE CONSULT [id number] Notes Entered by: MONICA ERWIN 29 Apr 2020 1457 ------- ------- ------- ------- -- To discuss TENS unit MONICA ERWIN 04/29 [place] [facility] [place] D Team) TELE CONSULT [id number] Notes Entered by: FLAKO RAMIREZ 05 May 2020 0835 ------- ------- ------- ------- -- MEDICAT ION REFILL CHERI MENG 05/04 Medication Refill Forwarded [place] ([facility] D [facility]) [place] TELE [facility]SULT [id number] Notes Entered by: MONICA ERWIN 06 May 2020 0821 ------- ------- ------- ------- -- To discuss MRI results MONICA ERWIN 05/05 [place] 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 CHERI NOYOLA 05/21 Released w/o Limitations [place] ([facility]uros [facility]) [place]([facility] D Team[facility] OUTPATIENT [id number] f/u post neuro appt needs eval prior to CBRNE class CONSTANZA RICHARDEL Chad 06/02 Released w/o Limitations [facility] ([facility]) [facility] OUTPATIENT [id number] Other interve rtebral disc displac ement, lumbosa cral region JIGNESH ALEXTRAVON BLANCHARD 06/02 Released w/o Limitations [facility] (Pain Managem [facility]) [facility](K a [facility] D Team) TELE CONSULT [id number] Notes Entered by: PAIGE MARLEY 16 Jun 2020 1226 ------- ------- ------- ------- -- MED REFILLS /[id number]/S JEFF HOLMAN 06/16 Medication Refill Forwarded [facility] ([facility] D Team) [facility]) OUTPATIENT [id number] Annual A MICHEAL CEJA 06/18 Released w/o Limitations [facility] ([facility]) [facility]( a [facility] D Team) TELE CONSULT [id number] Notes Entered by: Chandler MYRICK 09 Jul 2020 1429 ------- ------- ------- ------- -- Network Results - Pain Clinic [id number] CHERI RICHARD 07/09 [facility] ([facility] D Team) [facility](K a [facility] A Team) TELE CONSULT [id number] Notes Entered by: Wallace RAE 18 Jul 2020 0821 ------- ------- ------- ------- -- PCR TEST REQUEST JEFF MOORE 07/17 Other Not Elsewhere Classified [facility] ([facility] A Team) [facility](K a [facility] D Team) TELE CONSULT [id number] Notes Entered by: Alethea CASON 11 Aug 2020 1009 ------- ------- ------- ------- -- NEW PROFILE /RX REFIL [phone] YUSRA CHERI ERIK 08/11 Other Not Elsewhere Classified [facility] ([facility] D Team) [facility](P ain Managemen t Clinic) OUTPATIENT [id number] f/u JIGNESHALEX SouzaPAMELA 08/11 Released w/o Limitations [facility] (Pain Managem ent Clinic) [facility](N eurosurge ry Clinic) TELE CONSULT [id number] Notes Entered by: Obed NOYOLA 26 Aug 2020 0902 ------- ------- ------- ------- -- Regardi ng profile CHERI NOYOLA 08/26 [facility] (Neuros urgery Clinic) [facility]) OUTPATIENT [id number] Notes Entered by: TONY ALLRED 27 Aug 2020 0929 ------- ------- ------- ------- -- TRI SERVICE PHA/CDB CHERI RICHARD Chad 08/27 Released w/o Limitations [facility] ([facility]) [facility] Phys Therapy [facility]) OUTPATIENT [id number] Notes Entered by: PHAN CLAYTON 03 Dec 2020 1448 ------- ------- ------- ------- -- Low back pain JARVIS HEWITT 12/03 Released w/o Limitations [facility] ([facility]) [facility]) OUTPATIENT [id number] Notes Entered by: PHAN CLAYTON 31 Dec 2020 1633 ------- ------- ------- ------- -- treatme nt JARVIS HEWITT 12/31 [place] w/o Limitations [place] [facility]) [place] A Team) OUTPATIENT [id number] PT REQ F2F/ L SIDE PX CAUSING DROPPIN G TO GROUND. BACK WONT ARCH OR STRETCH KAM OWEN 06/23 [place]ased w/o Limitations [place]) [place]ge ry Clinic) TELE CONSULT [id number] Notes Entered by: LEANNE MEADE 29 Jun 2021 1337 ------- ------- ------- ------- -- decline d referra l per LEANNE Flores 06/29 Other Not Elsewhere Classified [facility] ([facility]) [place]( a [facility] A Team) TELE CONSULT [id number] Notes Entered by: IZABEL BLOOD 21 Jul 2021 0907 ------- ------- ------- ------- -- PROFILE ROBERTA MEJIA 07/21 Other Not Elsewhere Classified [place] ([facility]) [place]( a [facility] ion) OUTPATIENT [id number] Audio -- ChioA MILA WELSH 08/12 [facility]ased w/o Limitations [facility] ( [facility]) [facility]( a [facility] D Team) TELE CONSULT [id number] Notes Entered by: Matthew TSANG 25 Aug 2021 174 ------- ------- ------- ------- -- Pos Covid-1 9 Result Patient needs to be notifie BURTON Vernon 08/25 [place] ([facility] D [facility]) [facility]( a [facility] A Team) TELE CONSULT [id number] Notes Entered by: CHERIE ARCE 03 Sep 2021 1507 ------- ------- ------- ------- -- f/u MRI RAMONA HERNANDEZ 09/03 Other Not Elsewhere Classified [place] [facility]) [facility]) OUTPATIENT [id number] MHA;COM PLETED MICHEAL MONK 09/15 [facility]ased w/o Limitations [facility]) [place] Imms) OUTPATIENT [id number] Notes Entered by: ELVA PARDO 02 Nov 2021 1530 ------- ------- ------- ------- -- JOSEPH CANCINO 11/02 [place]ased w/o Limitations [place] [facility]) [place]) OUTPATIENT [id number] Notes Entered by: JEFF MOORE 10 Nov 2021 1307 ------- ------- ------- ------- -- Tri-Ser KAM Lizarraga 11/10 Released w/o Limitations [facility] ([facility]) Procedures Combined list of: 1) Procedures from Department of Veterans Affairs facilities going back up to thelast 18 months, not all VA non-surgical procedures are included; 2) All procedures from the Department of Defense facilities. Procedure Procedure Type Code Date Perfomer Comments Sourc e VIS FUNCT SCREEN,AUTOMAT/SEMI- AUTOMAT BILAT QUANT DETERM VISUAL ACUITY,OCULAR ALIGN,COLOR VISION,PSEUDOISOCHRO MAT PLATES,& FIELD VIS (MAY INC ALL/SOME SCRN DETERM FOR CONTRAST SENSITIV,VIS UND GLARE) 2007 DoD PRESCRIPTION OF OPTICAL AND PHYSICAL CHARACTERISTICS OF AND FITTING OF CONTACT LENS, WITH MEDICAL SUPERVISION OF ADAPTATION; CORNEAL LENS, BOTH EYES, EXCEPT FOR APHAKIA 2010 DoD WEIGHT RECORDED (PAG) 2010 DoD FITTING OF SPECTACLES, EXCEPT FOR APHAKIA; MONOFOCAL 2009 DoD TELE ASSESS & MGT SRV PROV QUAL NONPHYS HLTH CARE PRO TO EST PAT,PARENT,GUARD NOT ORIG REL ASSESS & MGT SRV PROV W/IN PREV 7 DAYS NOR LEAD ASSESS & MGT SRV/PX W/IN NXT 24 HR/SOON APT;5-10 MIN MED DIS 2009 [facility] HEALTH AND BEHAVIOR INTERVENTION, EACH 15 MINUTES, DSUA-EW-QUOS; GROUP (2 OR MORE PATIENTS) 2005 [facility] INDIVIDUAL PSYCHOTHERAPY, INSIGHT ORIENTED, BEHAVIOR MODIFYING AND/OR SUPPORTIVE, IN AN OFFICE OR OUTPATIENT FACILITY, APPROXIMATELY 20 TO 30 MINUTES LUCN-GB-QNHV WITH THE PATIENT 2003 [facility] MEDICAL NUTRITION THERAPY; GROUP (2 OR MORE INDIVIDUAL(S)), EACH [address] [facility] GROUP PSYCHOTHERAPY (OTHER THAN OF A MULTIPLE-FAMILY GROUP) 2003 [facility] UNLISTED PSYCHIATRIC SERVICE OR PROCEDURE 2003 [facility] PSYCHIATRIC DIAGNOSTIC INTERVIEW EXAMINATION 2003 [facility] ONLINE ASSESS &MANAG SERV PROVIDE,A QUAL NONPHYS HCP TO AN ESTABLISHED PAT/GUARDIAN,NOT ORIGINAT FRM RELAT ASSESS &MANAG SERV PROVIDE W/IN THE PREV 7 DAYS,USE THE [employer]SIMILAR [employer] NETWORK 2017 [facility] ADMINISTRATION OF PATIENT-FOCUSED HEALTH RISK ASSESSMENT INSTRUMENT (EG, HEALTH HAZARD APPRAISAL) WITH SCORING AND DOCUMENTATION, PER STANDARDIZED INSTRUMENT 2017 DoD ADMINISTRATION OF PATIENT-FOCUSED HEALTH RISK ASSESSMENT INSTRUMENT (EG, HEALTH HAZARD APPRAISAL) WITH SCORING AND DOCUMENTATION, PER STANDARDIZED INSTRUMENT 2017 DoD PURE TONE AUDIOMETRY (THRESHOLD), AUTOMATED; AIR ONLY 2017 [facility] PURE TONE AUDIOMETRY (THRESHOLD), AUTOMATED; AIR ONLY 2016 DoD DETERMINATION OF REFRACTIVE STATE 2016 [facility] PHYSICAL THERAPY RE-EVALUATION 2015 [facility] APPLICATION OF A MODALITY TO 1 OR MORE AREAS; ELECTRICAL STIMULATION (MANUAL), EACH 15 MINUTES 2015 DoD PURE TONE AUDIOMETRY (THRESHOLD); AIR ONLY 2015 DoD DETERMINATION OF REFRACTIVE STATE 2015 [facility] DETERMINATION OF REFRACTIVE STATE 2014 DoD POSTOPERATIVE FOLLOW-UP VISIT, NORMALLY INCLUDED IN THE SURGICAL PACKAGE, INDICATE THAT EVALUATION & MANAGEMENT SERVICE WAS PERFORMED DURING A POSTOPERATIVE PERIOD REASON RELATED ORIGINAL PROCEDURE 2014 DoD POSTOPERATIVE FOLLOW-UP VISIT, NORMALLY INCLUDED IN THE SURGICAL PACKAGE, INDICATE THAT EVALUATION & MANAGEMENT SERVICE WAS PERFORMED DURING A POSTOPERATIVE PERIOD REASON RELATED ORIGINAL PROCEDURE 2014 [facility] PHOTOREFRACTIVE KERATECTOMY (PRK) 2014 [facility] COMPUTERIZED CORNEAL TOPOGRAPHY, UNILATERAL OR BILATERAL, WITH INTERPRETATION AND REPORT 2014 [facility] NEUROPSYCHOLOGICAL TESTING (EG, [place] CARD SORTING TEST), ADMINISTERED BY A COMPUTER, WITH QUALIFIED HEALTH CLUB MANAGER INTERPRETATION AND REPORT 2013 [facility] PRESCRIPTION OF OPTICAL AND PHYSICAL CHARACTERISTICS OF AND FITTING OF CONTACT LENS, WITH MEDICAL SUPERVISION OF ADAPTATION; CORNEAL LENS, BOTH EYES, EXCEPT FOR APHAKIA 2013 DoD PURE TONE AUDIOMETRY (THRESHOLD); AIR ONLY 2012 [facility] OPHTHALMOLOGICAL SERVICES: MEDICAL EXAMINATION AND EVALUATION, WITH INITIATION OR CONTINUATION OF DIAGNOSTIC AND TREATMENT PROGRAM; COMPREHENSIVE, ESTABLISHED PATIENT, 1 OR MORE VISITS 2012 [facility] NEUROPSYCHOLOGICAL TESTING (EG, [place] CARD SORTING TEST), ADMINISTERED BY A COMPUTER, WITH QUALIFIED HEALTH CLUB MANAGER INTERPRETATION AND REPORT 2011 DoD PRESCRIPTION OF OPTICAL AND PHYSICAL CHARACTERISTICS OF AND FITTING OF CONTACT LENS, WITH MEDICAL SUPERVISION OF ADAPTATION; CORNEAL LENS, BOTH EYES, EXCEPT FOR APHAKIA 2011 [facility] ADMINISTRATION OF PATIENT-FOCUSED HEALTH RISK ASSESSMENT INSTRUMENT (EG, HEALTH HAZARD APPRAISAL) WITH SCORING AND DOCUMENTATION, PER STANDARDIZED INSTRUMENT 2021 DoD IMMUNIZATION ADM,IM INJECT,SEVERE AC RESPIRATORY SYNDROME CORONAVIR 2 (SARS-COV-2) (CORONAVIR DIS [COVID-19]) VACC,MRNA-LNP,SPIKE PROT,PRESRV FREE,30 MCG/0.3 ML DOSAG,DILUENT RECONSTIT;BOOSTER DOSE 2021 [facility] ADMINISTRATION OF PATIENT-FOCUSED HEALTH RISK ASSESSMENT INSTRUMENT (EG, HEALTH HAZARD APPRAISAL) WITH SCORING AND DOCUMENTATION, PER STANDARDIZED INSTRUMENT 2021 DoD TELE ASSESS & MGT SRV PROV QUAL NONPHYS HLTH CARE PRO TO EST PAT,PARENT,GUARD NOT ORIG REL ASSESS & MGT SRV PROV W/IN PREV 7 DAYS NOR LEAD ASSESS & MGT SRV/PX W/IN NXT 24H/SOON APT; 21-30 MIN MED DIS 2021 DoD BRIEF COMM TECH-BASE SERV,E.G. VIRT CHK-IN,BY PHYS/OTH QUAL HCP,RPT E&M SERV,PROV TO EST PT,NOT ORIG FRM REL E/M SERV PROV W/IN PREV 7DAY NOR LEAD TO E/M SRV/PX W/IN NEXT 24HR/SOON MIKE; 5-[address] [facility] PATIENT EDUCATION, NOT OTHERWISE CLASSIFIED, NON-PHYSICIAN PROVIDER, INDIVIDUAL, PER SESSION 2020 [facility] APPLICATION OF A MODALITY TO 1 OR MORE AREAS; ELECTRICAL STIMULATION (MANUAL), EACH [address] [facility] BIOFEEDBACK TRAINING BY ANY MODALITY 2020 [facility] ADMINISTRATION OF PATIENT-FOCUSED HEALTH RISK ASSESSMENT INSTRUMENT (EG, HEALTH HAZARD APPRAISAL) WITH SCORING AND DOCUMENTATION, PER STANDARDIZED INSTRUMENT 2020 DoD TELE ASSESS & MGT SRV PROV QUAL NONPHYS HLTH CARE PRO TO EST PAT,PARENT,GUARD NOT ORIG REL ASSESS & MGT SRV PROV W/IN PREV 7 DAYS NOR LEAD ASSESS & MGT SRV/PX W/IN NXT 24H/SOON APT; 11-20 MIN MED DIS 2019 DoD TELE ASSESS & MGT SRV PROV QUAL NONPHYS HLTH CARE PRO TO EST PAT,PARENT,GUARD NOT ORIG REL ASSESS & MGT SRV PROV W/IN PREV 7 DAYS NOR LEAD ASSESS & MGT SRV/PX W/IN NXT 24 HR/SOON APT;5-10 MIN MED DIS 2019 DoD ADMINISTRATION OF PATIENT-FOCUSED HEALTH RISK ASSESSMENT INSTRUMENT (EG, HEALTH HAZARD APPRAISAL) WITH SCORING AND DOCUMENTATION, PER STANDARDIZED INSTRUMENT 2019 DoD TELE ASSESS & MGT SRV PROV QUAL NONPHYS HLTH CARE PRO TO EST PAT,PARENT,GUARD NOT ORIG REL ASSESS & MGT SRV PROV W/IN PREV 7 DAYS NOR LEAD ASSESS & MGT SRV/PX W/IN NXT 24 HR/SOON APT;5-10 MIN MED DIS 2019 DoD WAIVER SERVICES; NOT OTHERWISE SPECIFIED (NOS) 2019 DoD TELE ASSESS & MGT SRV PROV QUAL NONPHYS HLTH CARE PRO TO EST PAT,PARENT,GUARD NOT ORIG REL ASSESS & MGT SRV PROV W/IN PREV 7 DAYS NOR LEAD ASSESS & MGT SRV/PX W/IN NXT 24H/SOON APT; 11-20 MIN MED DIS 2019 DoD TELE ASSESS & MGT SRV PROV QUAL NONPHYS HLTH CARE PRO TO EST PAT,PARENT,GUARD NOT ORIG REL ASSESS & MGT SRV PROV W/IN PREV 7 DAYS NOR LEAD ASSESS & MGT SRV/PX W/IN NXT 24 HR/SOON APT;5-10 MIN MED DIS 2019 DoD SELF-CARE/HOME MANAGMENT TRAIN (EG,ACT OF DAILY LIVING (ADL) &COMPENSAT TRAIN,MEAL PREPARATION,SAFETY PROCS,AND INSTRUCT IN USE OF ASST TECHNOLOGY DEV/ADPT EQUIP) DIR ONE-ON-ONE CONT,EA [address] [facility] VITAL SIGNS (TEMPERATURE, PULSE, RESPIRATORY RATE, AND BLOOD PRESSURE) DOCUMENTED AND REVIEWED (CAP) (EM) 2018 [facility] ADMINISTRATION OF PATIENT-FOCUSED HEALTH RISK ASSESSMENT INSTRUMENT (EG, HEALTH HAZARD APPRAISAL) WITH SCORING AND DOCUMENTATION, PER STANDARDIZED INSTRUMENT 2018 DoD SELF-CARE/HOME MANAGMENT TRAIN (EG,ACT OF DAILY LIVING (ADL) &COMPENSAT TRAIN,MEAL PREPARATION,SAFETY PROCS,AND INSTRUCT IN USE OF ASST TECHNOLOGY DEV/ADPT EQUIP) DIR ONE-ON-ONE CONT,EA 15 MINUTES 2018 DoD BRIEF EMOTIONAL/BEHAVIORAL ASSESSMENT (EG, DEPRESSION INVENTORY, ATTENTION-DEFICIT/HY PERACTIVITY DISORDER [ADHD] SCALE), WITH SCORING AND DOCUMENTATION, PER STANDARDIZED INSTRUMENT 2018 [facility] THERAPEUTIC PROCEDURE, 1 OR MORE AREAS, EACH 15 MINUTES; THERAPEUTIC EXERCISES TO DEVELOP STRENGTH AND ENDURANCE, RANGE OF MOTION AND FLEXIBILITY 2018 [facility] PATIENT EDUCATION, NOT OTHERWISE CLASSIFIED, NON-PHYSICIAN PROVIDER, INDIVIDUAL, PER SESSION 2018 DoD SELF-CARE/HOME MANAGMENT TRAIN (EG,ACT OF DAILY LIVING (ADL) &COMPENSAT TRAIN,MEAL PREPARATION,SAFETY PROCS,AND INSTRUCT IN USE OF ASST TECHNOLOGY DEV/ADPT EQUIP) DIR ONE-ON-ONE CONT,EA 15 MINUTES 2018 DoD SELF-CARE/HOME MANAGMENT TRAIN (EG,ACT OF DAILY LIVING (ADL) &COMPENSAT TRAIN,MEAL PREPARATION,SAFETY PROCS,AND INSTRUCT IN USE OF ASST TECHNOLOGY DEV/ADPT EQUIP) DIR ONE-ON-ONE CONT,EA 15 MINUTES 2018 DoD POSTOPERATIVE FOLLOW-UP VISIT, NORMALLY INCLUDED IN THE SURGICAL PACKAGE, INDICATE THAT EVALUATION & MANAGEMENT SERVICE WAS PERFORMED DURING A POSTOPERATIVE PERIOD REASON RELATED ORIGINAL PROCEDURE 2014 DoD POSTOPERATIVE FOLLOW-UP VISIT, NORMALLY INCLUDED IN THE SURGICAL PACKAGE, INDICATE THAT EVALUATION & MANAGEMENT SERVICE WAS PERFORMED DURING A POSTOPERATIVE PERIOD REASON RELATED ORIGINAL PROCEDURE 2014 [facility] PHOTOREFRACTIVE KERATECTOMY (PRK) 2014 [facility] PHYS/OTH QUALIFIED HEALTH CLUB MANAGER QUALIFIED,EDUCATION, TRAIN,LICENSURE/REGU LATION (WHEN APPLICABLE) EDUC SER RENDERED TO PATS IN A GRP SETTING (EG,,OBESITY ,OR DIABETIC INSTRUCT) 2014 [facility] COMPUTERIZED CORNEAL TOPOGRAPHY, UNILATERAL OR BILATERAL, WITH INTERPRETATION AND REPORT 2014 [facility] Determination Of Refractive State Determination Of Refractive State 44850 2009 LEANNE COLLIER Ophthalmological New Patient Start Comprehensive Care Ophthalmological New Patient Start Comprehensive Care [address] [facility] Non-Physician Phone Call To Patient/Provider Brief (5-10min) Non-Physician Phone Call To Patient/Provider Brief (5-10min) [id number] [facility] Visual Function Screening Visual Function Screening [id number] [facility] Health And Behav Intervention, Each Additional 15 Min Grp (2 Or More) Health And Behav Intervention, Each Additional 15 Min Grp (2 Or More) 36564 2005 MONICA GODINEZ Phys Therapy Education Self Care Training - Per 15 Minutes Phys Therapy Education Self Care Training - Per 15 Minutes 17184 2018 ERLIN LUNDBERG Physical Therapy Service Re-Evaluation Physical Therapy Service Re-Evaluation 10714 2018 ERLIN LUNDBERG Psychometric Emotional / Behavioral A e ment Psychometric Emotional / Behavioral Assessment 78339 2018 WING TRAN Preventive Medicine Administration Of Health Risk Questionnaire Patient-Focused Preventive Medicine Administration Of Health Risk Questionnaire Patient-Focused 05011 2018 WING TRAN Internet Med Svc Qual Nonps Healthcare Prof Up To 7 Days Estab Patient Internet Med Svc Qual Nonps Healthcare Prof Up To 7 Days Estab Patient 00950 2018 WING TRAN A isted Exercises For ROM Assisted Exercises For ROM 97757 2018 ERLIN LUNDBERG Physical Therapy Service Re-Evaluation Physical Therapy Service Re-Evaluation 96259 2018 ERLIN LUNDBERG Patient education, not otherwise cla ified, non-physician provider, individual, per se ion 2018 KATHLEEN MATSON Threshold Audiogram (Pure Tone) Automated Threshold Audiogram (Pure Tone) Automated 0208T 2018 KATHLEEN MATSON Phys Therapy Education Self Care Training - Per 15 Minutes Phys Therapy Education Self Care Training - Per 15 Minutes 28923 2018 ERLIN LUNDBERG Physical Therapy Service Re-Evaluation Physical Therapy Service Re-Evaluation 14758 2018 ERLIN LUNDBERG Phys Therapy Education Self Care Training - Per 15 Minutes Phys Therapy Education Self Care Training - Per 15 Minutes 52192 2018 ERLIN LUNDBERG Physical Therapy Service Evaluation Low Complexity Physical Therapy Service Evaluation Low Complexity 27517 2018 ERLIN LUNDBERG Internet Med Svc Qual Nonphys Healthcare Prof Up To 7 Days Estab Patient Internet Med Svc Qual Nonphys Healthcare Prof Up To 7 Days Estab Patient 34586 2017 MAURO MARTIN Preventive Medicine Administration Of Health Risk Questionnaire Patient-Focused Preventive Medicine Administration Of Health Risk Questionnaire Patient-Focused [id number] 2017 NORMA RADFORD Preventive Medicine Administration Of Health Risk Questionnaire Patient-Focused Preventive Medicine Administration Of Health Risk Questionnaire Patient-Focused 40456 2017 ERLIN SHEPHERD Threshold Audiogram (Pure Tone) Threshold Audiogram (Pure Tone) 17323 2017 RIRI PASTOR Threshold Audiogram (Pure Tone) Threshold Audiogram (Pure Tone) [address] [facility] Determination Of Refractive State Determination Of Refractive State 06981 2016 MERCEDEZ LANDIN Ophthalmological Prior Patient Start Comprehensive Care Ophthalmological Prior Patient Start Comprehensive Care 84150 2016 MERCEDEZ LANDIN Physical Therapy Service Re-Evaluation Physical Therapy Service Re-Evaluation 37250 2015 TONY CATHERINE Modalities Electrical Stimulation Modalities Electrical Stimulation 24124 2015 TONY CATHERINE Modalities Heat Hot Packs Modalities Heat Hot Packs 72371 2015 TONY CATHERINE A isted Exercises For ROM Assisted Exercises For ROM 33705 2015 TONY CATHERINE Physical Therapy Service Evaluation Physical Therapy Service Evaluation 42376 2015 TONY CATHERINE Threshold Audiogram (Pure Tone) Threshold Audiogram (Pure Tone) 87464 2015 EVELYN MATSON Determination Of Refractive State Determination Of Refractive State 58996 2015 ARANMKATHLEEN LAURA A [facility] Ophthalmological Prior Patient Start Comprehensive Care Ophthalmological Prior Patient Start Comprehensive Care 37706 2015 ARANMOLATE, LAURA A [facility] Determination Of Refractive State Determination Of Refractive State 71886 2014 ARANMOLATE, LAURA A [facility] Ophthalmological Prior Patient Start Comprehensive Care Ophthalmological Prior Patient Start Comprehensive Care 47396 2014 ARANMOLATE, LAURA A [facility] Postoperative Visit, Without Charge Postoperative Visit, Without Charge 98842 2014 ARANMOLATE, LAURA A [facility] Postoperative Visit, Without Charge Postoperative Visit, Without Charge 12974 2014 ARANMKATHLEEN LAURA A [facility] Photorefractive keratectomy (PRK) 2014 ARANMKATHLEEN LAURA A [facility] Postoperative Visit, Without Charge Postoperative Visit, Without Charge 08734 2014 INDIGO WALTON Postoperative Visit, Without Charge Postoperative Visit, Without Charge 44899 2014 PREMA ROSALES Photorefractive keratectomy (PRK) 2014 KHALIF POSEY Physician Supervised Group Educational Services Physician Supervised Group Educational Services 97425 2014 AMAN LISA Determination Of Refractive State Determination Of Refractive State 97249 2014 INDIGO WALTON Fundoscopic Exam Extensive Initial Exam Fundoscopic Exam Extensive Initial Exam 00849 2014 INDIGO WALTON Computerized Corneal Topography Computerized Corneal Topography 51773 2014 INDIGO WALTON Ophthalmological New Patient Start Comprehensive Care Ophthalmological New Patient Start Comprehensive Care 77096 2014 INDIGO WALTON Corneal Pachymetry, Bilateral With Interpret And Report Corneal Pachymetry, Bilateral With Interpret And Report 06348 2014 INDIGO WALTON Computerized Corneal Topography Computerized Corneal Topography 23521 2014 LINNEA LAURA A [facility] Corneal Pachymetry, Bilateral With Interpret And Report Corneal Pachymetry, Bilateral With Interpret And Report 54146 2014 ARAKELSEA LAURA A [facility] Determination Of Refractive State Determination Of Refractive State [id number] ARAMELECIO ENAMORADOMILAYO A [facility] Ophthalmological Prior Patient Start Comprehensive Care Ophthalmological Prior Patient Start Comprehensive Care [id number] ARAMASSIMO ENAMORADOLAYO A [facility] Psychometric Neuropsych Testing Battery Admin By Computer Psychometric Neuropsych Testing Battery Admin By Computer 15539 2013 JUANITA FIELDS Prescription And Fitting Bilateral Corneal Lenses (Not For Aphakia) Prescription And Fitting Bilateral Corneal Lenses (Not For Aphakia) [id number] BRITNI GARCIA [employer] [facility] Fitting Monofocal Except For Aphakia [employer] [facility] Fitting Monofocal Except For Aphakia 75983 2013 BRITNI GARCIA Determination Of Refractive State Determination Of Refractive State 2013 BRITNI GARCIA Ophthalmological Prior Patient Start Comprehensive Care Ophthalmological Prior Patient Start Comprehensive Care 2013 BRITNI GARCIA Threshold Audiogram (Pure Tone) Threshold Audiogram (Pure Tone) [address] [facility] Ophthalmological Prior Patient Start Comprehensive Care Ophthalmological Prior Patient Start Comprehensive Care [id number] NONA LUCIANO [employer] Fitting Monofocal Except For Aphakia [employer] Fitting Monofocal Except For Aphakia 29006 2012 NONA LUCIANO Prescription And Fitting Bilateral Corneal Lenses (Not For Aphakia) Prescription And Fitting Bilateral Corneal Lenses (Not For Aphakia) 2012 NONA LUCIANO Rx Biofinity Toric 8.7/14.5/ OD: -0.75-0.22r507 OS: -0.75-0.20t722 Daily wear (12-14 hours); replace monthly; clean with MPS (rub & rinse to prevent build up) Stressed compliance with prescribed lens care regimen to reduce risk of infection and other complications [facility] Determination Of Refractive State Determination Of Refractive State 2012 NONA LUCIANO Rx subj Order FOC/5A/Inserts [facility] Psychometric Neuropsych Testing Battery Admin By Computer Psychometric Neuropsych Testing Battery Admin By Computer 54972 2011 LISA CADET Prescription And Fitting Bilateral Corneal Lenses (Not For Aphakia) Prescription And Fitting Bilateral Corneal Lenses (Not For Aphakia) 72109 2011 NONA LUCIANO Rx Biofinity Toric 8.7/14.5/ OD: -0.75-0.16x066 OS: -0.50-0.50z824 Daily wear (12-14 hours); replace monthly; clean with MPS (rub & rinse to prevent build up) Stressed compliance with prescribed lens care regimen to reduce risk of infection and other complications [facility] [employer] Fitting Monofocal Except For Aphakia [employer] Fitting Monofocal Except For Aphakia 24413 2011 NONA LUCIANO Determination Of Refractive State Determination Of Refractive State 35190 2011 NONA LUCIANO Rx subj Order FOC/S9 or 5A/inserts DoD Ophthalmological New Patient Start Comprehensive Care Ophthalmological New Patient Start Comprehensive Care 43151 2011 NONA LUCIANO Prescription And Fitting Bilateral Corneal Lenses (Not For Aphakia) Prescription And Fitting Bilateral Corneal Lenses (Not For Aphakia) 97810 2010 LEANNE COLLIER [employer] [facility] Fitting Monofocal Except For Aphakia [employer] [facility] Fitting Monofocal Except For Aphakia 51280 2010 LEANNE COLLIER FOC, S9, GMI DoD Ophthalmological Prior Patient Start Comprehensive Care Ophthalmological Prior Patient Start Comprehensive Care 63619 2010 LEANNE COLLIER Determination Of Refractive State Determination Of Refractive State 47176 2010 LEANNE COLLIER Weight Recorded 2010 BURTON OCONNELL Lipid Panel Test Results Documented And Reviewed Lipid Panel Test Results Documented And Reviewed 3011F 2010 BURTON OCONNELL Screening Test Of Visual Acuity, Quantitative, Bilateral Screening Test Of Visual Acuity, Quantitative, Bilateral 45675 2010 BURTON OCONNELL [employer] Fitting Monofocal Except For Aphakia [employer]acles Services Fitting Monofocal Except For Aphakia 62091 2009 LEANNE COLLIER, GMIx2 [facility] Preventive Medicine Administration Of Health Risk Questionnaire Patient-Focused Preventive Medicine Administration Of Health Risk Questionnaire Patient-Focused [id number] [facility] Vital Signs Recorded Vital Signs Recorded ANA PAULA RUBIO [facility] Patient Counseling Medical Management Individual Patient Patient Counseling Medical Management Individual Patient [address] [facility] Waiver services; not otherwise specified (NOS) MONICA ERWIN [facility] Phys Therapy Education Self Care Training - Per 15 Minutes Phys Therapy Education Self Care Training - Per 15 Minutes [address] [facility] Non-Physician Phone Call To Patient/Provider Brief (5-10min) Non-Physician Phone Call To Patient/Provider Brief (5-10min) [address] [facility] Non-Physician Phone Call To Pt/Provider Intermed (11-20 min) Non-Physician Phone Call To Pt/Provider Intermed (11-20 min) [address] [facility] Brief communication technology-based service, e.g. virtual check-in, by a physician or other qualified health care profe sancho who can report evaluation and management services, provided to an established patient, not originating from a related E/M service provided within the previous 7 days nor leading to an E/M service or procedure within the next 24 hours or soonest available appointment; 5-10 minutes of medical discu SANTO Galvan [facility] Physical Therapy Service Evaluation Low Complexity Physical Therapy Service Evaluation Low Complexity 55324 JARVIS VIDES Physical Therapy Neuromuscular Re-education Physical Therapy Neuromuscular Re-education 20587 JARVIS VIDES Biofeedback Training By Any Modality Biofeedback Training By Any Modality 30528 JARVIS VIDES Mobilization Soft Ti ue Mobilization Soft Tissue 70892 JARVIS VIDES Modalities Electrical Stimulation Modalities Electrical Stimulation 76903 JARVIS VIDES Patient education, not otherwise cla ified, non-physician provider, individual, per se ion MILA WELSH Threshold Audiogram (Pure Tone) Automated Threshold Audiogram (Pure Tone) Automated 0208T MILA WELSH Non-Physician Phone Call To Pt/Provider Lengthy (21-30 min) Non-Physician Phone Call To Pt/Provider Lengthy (21-30 min) [address] [facility] Vaccine SARS-CoV-2 mRNA-LNP Toy Protein Preservative Free 30mcg/0.3mL Diluent Reconstituted IM Vaccine SARS-CoV-2 mRNA-LNP Toy Protein Preservative Free 30mcg/0.3mL [place] [address] JOSEPH MARCOS COVID-19, 30 mcg/0.3 mL dose (Pfizer 12+ years); Series #: 3; 0.3 mL; IM; Right Arm; Mfg: Whistlestop; Lot: [id number]; VIS given (Emiliano: 08/17/2021). DoD Vacc SARS-CoV-2 mRNA-LNP Toy Protein Preservative Free 30mcg/0.3mL Diluent Reconstituted IM Booster Dose Vacc SARS-CoV-2 mRNA-LNP Toy Protein Preservative Free 30mcg/0.3mL Diluent Reconstituted IM Booster Dose 0004A JOSEPH MARCOS 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 Social History Type Response Date Comment Sour e This section is an empty social history section. [employer]D
== END 2024-07-25 12:11 | disposition home or self-care (01) ==
PROVIDERS: PCP Nurse Practitioner Family; Visit Provider Nurse Practitioner Family
DX: F43.9 Reaction to severe stress, unspecified (principal); F41.9 Anxiety disorder, unspecified

== ENCOUNTER → 2024-07-25 11:23 | Outpatient (BNVA) | payer OTHER, SELFPAY | PROVIDERS: PCP Nurse Practitioner Family; Visit Provider Nurse Practitioner Family | DX: F43.9 Reaction to severe stress, unspecified (principal); F41.9 Anxiety disorder, unspecified | CPT/HCPCS: 96127; 99212 ==

== ENCOUNTER 2024-08-31 13:18 | Outpatient (AMB) | payer OTHER, SELFPAY ==
--- NOTE | 2024-08-31 13:21 | A.OFFVIS_ITS ---
Vital Signs 08/31/24 13:33 Height 6 ft 1 in Weight 215 lb BMI 28.4 Handedness Right Intake Visit Reasons: Carpal tunnel syndrome, bilateral upper limbs Intake Note: Stephan is a 39 year old right hand dominant male who presents today as a new patient for evaluation of bilateral carpal tunnel syndrome, right worse than left. Patient reports this has been on going for roughly 6 years. Unable to extend right hand back, unable to hold objects in right hand. Expresses weakness in right hand and difficulty with keeping his hand up right with objects in it. He states he has not been doing home projects because he cannot use tools like a hammer due to decrease in strength. When he rubs against his fingers of the right hand he states its a dull sensation in all digits. Occasionally gets extreme pain that is in 4th and 5th right digits that will radiate up forearm. States he is beginning to get the same symptoms as right hand in left hand and in the 4th and 5th digits of left hand. He stopped biking because his wrist would get an exacerbation in pain or hands would go numb. Patient is open to discussing operative and non operative treatment. Hx of EMG done on 07/24/2024 IMPRESSION: Mild bilateral median neuropathy across carpal tunnel. Allergies No Known Allergies Allergy (Verified 08/31/24 13:33) HPI HPI Carpal tunnel syndrome, bilateral upper limbs: Details: Stephan is a 39 year old right hand dominant male who presents today as a new patient for evaluation of bilateral carpal tunnel syndrome, right worse than left. Patient reports this has been on going for roughly 6 years. Unable to extend right hand back, unable to hold objects in right hand. Expresses weakness in right hand and difficulty with keeping his hand up right with objects in it. He states he has not been doing home projects because he cannot use tools like a hammer due to decrease in strength. When he rubs against his fingers of the right hand he states its a dull sensation in all digits. Occasionally gets extreme pain that is in 4th and 5th right digits that will radiate up forearm. States he is beginning to get the same symptoms as right hand in left hand and in the 4th and 5th digits of left hand. He stopped biking because his wrist would get an exacerbation in pain or hands would go numb. Patient is open to discussing operative and non operative treatment. Hx of EMG done on 07/24/2024 IMPRESSION: Mild bilateral median neuropathy across carpal tunnel PFSH Medical History Tinnitus Sciatica Lumbar disc herniation Surgical History No pertinent past surgical history Social History Housing: House Patient Tobacco Use Status: Former Tobacco user e-Cigarette/Vaping Use: Never Used service: Yes Current occupational status: employed Current occupation: [employer] Cognitive needs: No Hearing needs: No Vision needs: No Review of Systems Const All systems reviewed & are unremarkable except as noted in HPI and below Physical Exam Vital Signs: BMI result Body Mass Index 28.4 Extrem Other: Neuro: Normal sensation to the tips of all digits of both hands today No thenar or intrinsic wasting. Good APB muscle firing and good finger cross. Vascular: Capillary refill brisk. ROM: Patient can make a fist and extend all their digits. Skin: No lacerations or abrasions noted. General: No ecchymosis. No erythema or evidence of infection. Assessment & Plan Assessment & Plan (1) Bilateral carpal tunnel syndrome: Code(s): G56.03 - Carpal tunnel syndrome, bilateral upper limbs Category: Medical Plan 1. Bilateral carpal tunnel syndrome Intermittent, daily, worse at night Patient is educated about this condition Patient is educated about the typical treatment course When the possibility of surgery is discussed, I informed the patient that we are booking into late October or early November for these procedures, and he states that this is too late for him to have surgery here However, the patient states that he is currently active in the , and then he will be returning to [place] soon, which is his home state Patient was advised that he should follow up with a hand surgeon when he gets back to [place] Patient was amenable to this plan Patient will follow-up as needed with any acute concerns Coding Level of Care Code New Pt Level 4 (06034) Diagnoses Bilateral carpal tunnel syndrome G56.03
[2024-08-31 13:33] VITALS: BMI 28.4
--- OUTSIDE RECORDS SUMMARY | 2024-08-31 15:51 | XMS_ITS | Continuity of Care Document ---
Author Name [facility] Organization [facility] Care Team Providers Care Switchbox Assembler Name Role Phone [facility] Unavailable Unavailable Problems [...] OCCUPATIONAL DISEASE (INITIAL POST-DEPLOYMENT ASSESSMENT: DOCUMENTED ON [id number]): No concerns, see below. DoD joint pain, [...] (POST-DEPLOYMEN T EXAMINATION): DHRA#2 following deployment to [facility]. Member has mentioned no complaints or [...] TOPICAL, ENCUBE ETHICALS, 45 g TUBE Active [id number] 4 2023 45 Pharmac y Data Transac tion Service Facilit y FLUCELVAX QUAD 8913-3343 (flu vaccine quad 4943-4507(6 month and older)cell derived/PF) , 60MCG/.5ML, SYRINGE, INTRAMUSC, SEQIRUS[employer] INC[employer] .5 ml SYRINGE Active [id number] 4 2023 0.5 Pharmac y Data Transac tion Service Facilit y Allergies, Adverse Reactions, Alerts Combined list of allergies from Department of Defense and Veterans Affairs facilities. It does not include entries that were removed or entered in error. Substance Category Reaction Severity Reaction type Status Date Reported Comments Source NO OUTPUT FOR NCID [id number] Drug allergy (disorder) active 05/07/2008 [facility] Immunizations Combined list of available immunizations from the Department of Defense and Veterans Affairs facilities. Immunization Series Date Given Administered By Site Reaction Lot Number CVX Code Drug Impregnator Status Comments Source SARS-COV-2 (COVID-19) vaccine, mRNA, spike protein, LNP, preservative free, 30 mcg/0.3mL dose 3 2021 SEGUN FRANCISCO V [id number] Recochem, [employer] (PFR) complet ed SARS-COV- 2 (COVID-19 ) vaccine, mRNA, spike protein, LNP, preservat marely free, 30 mcg/0.3mL dose DoD anthrax vaccine 7 2020 [id number] 24 Emergent Bio[employer]ense [facility] ([facility]) complet ed anthrax vaccine DoD Influenza, injectable, quadrivalent, preservative free 1 2020 [id number] 150 SmithKline (SKB) complet ed Influenza , injectabl e, quadrival ent, preservat marely free DoD SARS-COV-2 (COVID-19) vaccine, mRNA, spike protein, LNP, preservative free, 30 mcg/0.3mL dose 2 2020 JOSE MARTIN DOWELL [id number] Pfizer, [employer] (PFR) complet ed SARS-COV- 2 (COVID-19 ) vaccine, mRNA, spike protein, LNP, preservat marely free, 30 mcg/0.3mL dose DoD SARS-COV-2 (COVID-19) vaccine, mRNA, spike protein, LNP, preservative free, 30 mcg/0.3mL dose 1 2020 [id number] 208 Recochem, [employer] (PFR) complet ed SARS-COV- 2 (COVID-19 ) vaccine, mRNA, spike protein, LNP, preservat marely free, 30 mcg/0.3mL dose DoD typhoid Vi capsular polysaccharid e vaccine 4 2019 [id number] 101 Sanofi Pasteur ([facility]) complet ed typhoid Vi capsular polysacch aride vaccine DoD meningococcal polysaccharid e (groups A, C, Y and W-135) diphtheria toxoid conjugate vaccine (MCV4P) 3 2019 [id number] Sanofi Pasteur ([facility]) complet ed meningoco ccal polysacch aride (groups A, C, Y and W-135) diphtheri a toxoid conjugate vaccine (MCV4P) DoD anthrax vaccine 7 2019 [id number] 24 [facility] ([facility]) complet ed anthrax vaccine DoD Influenza, injectable, quadrivalent, preservative free 1 2019 [id number] 150 Seqirus (SEQ) complet ed Influenza , injectabl e, quadrival ent, preservat marely free DoD Chadian Encephalitis vaccine for intramuscular administratio n 3 2018 [id number] 134 Valneva (SUGEY) complet ed Chadian Encephali tis vaccine for intramusc ular administr ation DoD Influenza, injectable, quadrivalent, preservative free 1 2018 [id number] 150 Seqirus (SEQ) complet ed Influenza , injectabl e, quadrival ent, preservat marely free DoD Chadian Encephalitis vaccine for intramuscular administratio n 2 2017 [id number] 134 Valneva (SUGEY) complet ed Chadian Encephali tis vaccine for intramusc ular administr ation DoD Chadian Encephalitis vaccine for intramuscular administratio n 1 2017 [id number] 134 Valneva (SUGEY) complet ed Chadian Encephali tis vaccine for intramusc ular administr ation DoD Influenza, injectable, quadrivalent, preservative free 17 2017 [id number] 150 SmithKline (SKB) complet ed Influenza , injectabl e, quadrival ent, preservat marely free DoD Influenza, injectable, Madin [place] Canine Kidney, preservative free, quadrivalent 16 2016 [id number] 171 Seqirus (SEQ) comple t ed Influenza , injectabl e, Mad[place] Canine Kidney, preservat marely free, quadrival ent DoD Influenza, seasonal, injectable, preservative free 15 2015 [id number] 140 Seqirus (SEQ) comple t ed Influenza , seasonal, injectabl e, preservat marely free DoD influenza, live, intranasal, quadrivalent 14 2014 [id number] 149 Adhere2Care, [employer]. (MED) complet ed influenza , live, intranasa l, quadrival ent DoD yellow fever vaccine 1 2013 [id number] 37 Sanofi Pasteur (PMC) complet ed yellow fever vaccine DoD typhoid Vi capsular polysaccharid e vaccine 3 2013 [id number] 101 Sanofi Pasteur (PMC) complet ed typhoid Vi capsular polysacch aride vaccine DoD meningococcal polysaccharid e (groups A, C, Y and W-135) diphtheria toxoid conjugate vaccine (MCV4P) 2 2013 [id number] 114 Sanofi Pasteur (PMC) complet ed meningoco ccal polysacch aride (groups A, C, Y and W-135) diphtheri a toxoid conjugate vaccine (MCV4P) DoD Influenza, seasonal, injectable, preservative free 13 2013 [id number] 140 Novartis [employer]arma. (NOV) complet ed Influenza , seasonal, injectabl e, preservat marely free DoD measles, mumps and rubella virus vaccine 1 2013 [id number] 03 Merck (MSD) complet ed measles, mumps and rubella virus vaccine DoD anthrax vaccine 6 2013 [id number] 24 [employer] [place] ([facility]) complet ed anthrax vaccine DoD influenza, live, intranasal, quadrivalent 12 2012 [id number] 149 Adhere2Care, [employer]. (MED) complet ed influenza , live, intranasa l, quadrival ent DoD anthrax vaccine 5 2011 [id number] 24 [employer] [place] ([facility]) complet ed anthrax vaccine DoD typhoid Vi capsular polysaccharid e vaccine 2 2011 [id number] 101 Sanofi Pasteur (PMC) complet ed typhoid Vi capsular polysacch aride vaccine DoD influenza virus vaccine, live, attenuated, for intranasal use 11 2011 [id number] 111 Factorli. (MED) complet ed influenza virus vaccine, live, attenuate d, for intranasa l use DoD tetanus toxoid, reduced diphtheria toxoid, and acellular pertu is vaccine, adsorbed 1 2011 [id number] 115 [facility] (SKB) complet ed tetanus toxoid, reduced diphtheri a toxoid, and acellular pertussis vaccine, adsorbed DoD influenza virus vaccine, live, attenuated, for intranasal use 1 2010 [id number] 111 Adhere2Care, [employer]. (MED) complet ed influenza virus vaccine, live, attenuate d, for intranasa l use DoD influenza virus vaccine, live, attenuated, for intranasal use 1 2009 [id number] 111 Adhere2Care, Inc. (MED) complet ed influenza virus vaccine, live, attenuate d, for intranasa l use DoD Novel influenza-H1N 1-09, injectable 1 2008 [id number] 127 Human Network Labs. (NOV) complet ed Novel influenza -A6F4-96, injectabl e DoD influenza virus vaccine, live, attenuated, for intranasal use 1 2008 [id number] 111 [employer]. (MED) complet ed influenza virus vaccine, live, attenuate d, for intranasa l use DoD anthrax vaccine 5 2008 [id number] 24 [employer] [place] (MIP) complet ed anthrax vaccine DoD influenza virus vaccine, live, attenuated, for intranasal use 1 2007 [id number] 111 Factor[employer]. (MED) complet ed influenza virus vaccine, live, attenuate d, for intranasa l use DoD anthrax vaccine 4 2007 [id number] 24 [employer] [place] (MIP) complet ed anthrax vaccine DoD anthrax vaccine 3 2007 [id number] 24 [employer] [place] (MIP) complet ed anthrax vaccine DoD anthrax vaccine 2 2007 [id number] 24 [employer] [place] (MIP) complet ed anthrax vaccine DoD anthrax vaccine 1 2006 [id number] 24 [employer] [place] (MIP) complet ed anthrax vaccine DoD vaccinia (smallpox) vaccine 1 2006 [id number] 75 Valerie (LEENA) complet ed vaccinia (smallpox ) vaccine DoD typhoid Vi capsular polysaccharid e vaccine 1 2006 [id number] 101 Sanofi Pasteur (PMC) complet ed typhoid Vi capsular polysacch aride vaccine DoD influenza virus vaccine, live, attenuated, for intranasal use 1 2006 [id number] 111 Adhere2Care, Inc. (MED) complet ed influenza virus vaccine, live, attenuate d, for intranasa l use DoD influenza virus vaccine, split virus (incl. purified surface antigen)-reti red CODE 1 2005 [id number] 15 Sanofi Pasteur ([facility]) complet ed influenza virus vaccine, split virus (incl. purified surface antigen)- retired CODE DoD influenza virus vaccine, split virus (incl. purified surface antigen)-reti red CODE 1 2004 [id number] 15 Sanofi Pasteur ([facility]) complet ed influenza virus vaccine, split virus (incl. purified surface antigen)- retired CODE DoD influenza virus vaccine, whole virus 1 2004 [id number] 16 Sanofi Pasteur ([facility]) complet ed influenza virus vaccine, whole virus DoD influenza virus vaccine, whole virus 0 2004 [id number] 16 Sanofi Pasteur ([facility]) complet ed influenza virus vaccine, whole virus DoD influenza virus vaccine, whole virus 0 2002 [id number] 16 PowderJect Pharm[employer] (PWJ) complet ed influenza virus vaccine, whole virus DoD hepatitis A and hepatitis B vaccine 3 2002 [id number] 104 SmithAdvasenseine (SKB) complet ed hepatitis A and hepatitis B vaccine DoD hepatitis A and hepatitis B vaccine 2 2002 [id number] 6 104 SmithKline (SKB) complet ed hepatitis A and hepatitis B vaccine DoD measles, mumps and rubella virus vaccine 0 2002 [id number] 03 Merck (MSD) complet ed measles, mumps and rubella virus vaccine DoD varicella virus vaccine 1 2002 21 () Not Given varicella virus vaccine DoD hepatitis A and hepatitis B vaccine 1 2002 [id number] 6 104 SmithKline (SKB) complet ed hepatitis A and hepatitis B vaccine DoD tetanus and diphtheria toxoids, adsorbed, preservative free, for adult use (2 Lf of tetanus toxoid and 2 Lf of diphtheria toxoid) 0 2002 [id number] 09 Sanofi Pasteur ([facility]) complet ed tetanus and diphtheri a toxoids, adsorbed, preservat marely free, for adult use (2 Lf of tetanus toxoid and 2 Lf of diphtheri a toxoid) DoD poliovirus vaccine, inactivated 0 2002 [id number] 10 Sanofi Pasteur (PMC) complet ed polioviru s vaccine, inactivat ed DoD influenza virus vaccine, whole virus 0 2002 [id number] 16 Sanofi Pasteur (PMC) complet ed influenza virus vaccine, whole virus DoD meningococcal polysaccharid e vaccine (MPSV4) 0 2002 [id number] 32 Sanofi Pasteur (PMC) complet ed meningoco [...] DC Date Status Disposition Source [employer]([facility]) OUTPATIENT [id number] MARGARETH Wallace 09/01 Released w/o Limitations [employer]([facility]) [employer]([facility]) OUTPATIENT [id number] MONICA RICHARDS 09/16 Released w/o Limitations [employer]([facility]) [employer]([facility]M [place]) OUTPATIENT [id number] f/u lt foot injury 07/18 Released with Work/Duty Limitations [employer](F PC [place]) [employer]([facility] [place]) OUTPATIENT [id number] pre-dep loyment ALEK DYE 08/11 Released w/o Limitations [employer]([facility] [place]) [employer]([facility] [place]) OUTPATIENT [id number] ALEK Hutson 09/01 Released w/o Limitations [employer]([facility] [place]) [employer](Fli ght Medicine [place]) OUTPATIENT [id number] Incenti ve BRENNEN Kiser 11/08 Released w/o Limitations [employer](F light Medicin e [place]) [employer] [facility] OUTPATIENT [id number] melissa leo color vision test HAILEE BOOTH 05/07 Released w/o Limitations [employer]([facility]) [employer]([facility] ) OUTPATIENT [id number] MITCHEL FRAZIER 05/21 Released w/o Limitations [employer](O AB Emergen cy) [facility] [facility]) OUTPATIENT [id number] PHA SERAFIN DAIGLE 10/15 Released w/o Limitations [employer]([facility]) [employer](War rior Operation al Med A-AD) OUTPATIENT [id number] [place] RIN AMBRIZ S 01/01 Released w/o Limitations [employer](W arrior Operati onal Med A-AD) [employer] [facility] OUTPATIENT [id number] [place] JAMMIE Murillo 01/01 Released w/o Limitations [employer] [facility]) [employer]([facility]) OUTPATIENT [id number] pha THEODORE LUNSFORD 08/28 Released w/o Limitations [employer]([facility]) [employer]([facility]) TELE CONSULT [id number] 72hr/NO ROUTINE S/Left foot pain NADIRA MANZANARES 09/18 [employer]([facility] Mental Health [facility]) [employer]([facility] Mental Health [facility]) OUTPATIENT [id number] pain in foot CARROL GRANT 09/25 Released w/o Limitations [employer]([facility] Mental Health [facility]) [employer](Z _Med_Occ_ Clin_Cont act) OUTPATIENT [id number] PHASE OH...ASHANTI MCDERMOTT 10/09 Released with Work/Duty Limitations [employer]a [facility]) [employer]([facility]) OUTPATIENT [id number] Annual Audiogr am CRUZITO COWAN 10/09 Released w/o Limitations [employer]([facility]) [facility](Opt ometry Clinic) OUTPATIENT [id number] eye exam LEANNE COLLIER 11/03 Released w/o Limitations [employer](O ptometr y Clinic) [employer]([facility]) OUTPATIENT [id number] Retrain CHRISSY Elizabeth 03/10 Released w/o Limitations [employer]([facility]) [employer]([facility] Mental Health [facility]) OUTPATIENT [id number] PHA BURTON OCONNELL 08/25 Released w/o Limitations [employer]([facility]) [employer]([facility]) OUTPATIENT [id number] injured right foot playing basketb INDIGO Marie 09/16 Released with Work/Duty Limitations [employer]([facility]) [employer]([facility]) OUTPATIENT [id number] Annual Audiogr am CHRISSY BERGMAN 10/19 Released w/o Limitations [employer]([facility]) [employer]([facility]) OUTPATIENT [id number] r/mid foot/ still hurting when putting pressur e on CARROL GRANT 10/21 Released with Work/Duty Limitations [employer]([facility]) [employer](Opt [facility]metry Clinic) OUTPATIENT [id number] routine eye exam and renewal of contact s LEANNE COLLIER 12/15 Released w/o Limitations [employer](O ptometr y Clinic) [employer]([facility]) OUTPATIENT [id number] pha-mos YOVANNY NORRIS 09/02 Released w/o Limitations [employer]([facility] [place] [facility]) [employer](Opt ometry Clinic) OUTPATIENT [id number] eye exam, contact s NONA LUCIANO 01/16 Released w/o Limitations [employer](O ptometr y Clinic) [employer]([facility] OUTPATIENT [id number] discuss changes in mole on lower right jaw YOVANNY NORRIS 03/28 Released w/o Limitations [employer]([facility]) [facility] [facility](Psy chology Clinic) OUTPATIENT [id number] LISA WHITE 05/30 Released w/o Limitations [employer](P sycholo gy Clinic) [employer]([facility]) OUTPATIENT [id number] pre deploym ent YOVANNY NORRIS 06/15 Released w/o Limitations [employer]([facility] Facility OUTPATIENT [id number] Theater Provider 08/23 Released w/o Limitations Theater Fac[facility] OUTPATIENT [id number] Theater Provider 12/31 Released w/o Limitations Theater Facilit y [employer] [facility](Opt ometry Clinic) OUTPATIENT [id number] Notes Entered by: JOVITA HOLDER 09 Jan 2013 1338 ------- ------- ------- ------- -- annual ANKITANONA 01/09 Released w/o Limitations [employer](O ptometr y Clinic) [employer](PHA Cell) OUTPATIENT [id number] YOVANNY DODGE 01/12 Released w/o Limitations [employer]([facility] [place] [facility]) [employer](Dep loyment Health Assessmen t) OUTPATIENT [id number] post deploym ent ROYAL CRAWFORD 04/12 Released w/o Limitations [employer](D eployme nt Health Assessm ent) [employer]([facility]) OUTPATIENT [id number] audiogr am ROYAL CRAWFORD 05/01 Released w/o Limitations [employer](P ublic Health Clinic) [employer](Dep loyment Health Assessmen t) TELE CONSULT [id number] Notes Entered by: ROYAL CRAWFORD 14 Sep 2013 1444 ------- ------- ------- ------- -- Malaria meds ROYAL CRAWFORD 09/14 [employer](D eployme nt Health Assessm ent) [employer](PHA Cell) OUTPATIENT [id number] YOVANNY Dodge 12/18 Released w/o Limitations [employer]([facility] [place] [facility]) [employer]([facility]) OUTPATIENT [id number] DHA4 MIKAYLA SANCHEZ 01/08 Released w/o Limitations [employer](F light Medicin e Clinic) [employer](Dep loyment Health Assessmen t) OUTPATIENT [id number] [facility] SRINIVAS ANDRADE 02/18 Released w/o Limitations [employer](D eployme nt Health Assessm ent) [facility](Opt ometry Clinic) OUTPATIENT [id number] last minute deploye BRITNI Anders Rigo 02/20 Released w/o Limitations [employer](O ptometr y Clinic) [facility] [facility](Psy chology Clinic) OUTPATIENT [id number] Notes Entered by: LALA DONALDSON 21 Feb 2014 0809 ------- ------- ------- ------- -- LISA WHITE 02/21 Released w/o Limitations [employer](P sycholo gy Clinic) Theater Facility OUTPATIENT [id number] Theater Provider 05/28 Released w/o Limitations Theater Facilit y [employer](Dep loent Health Assessmen t) TELE CONSULT [id number] Notes Entered by: KENDALL 21 Aug 2014 1335 ------- ------- ------- ------- -- Malaria Meds MELQUIADES DOLL 08/21 [employer](D eployme nt Health Assessm ent) [employer]([facility] Health Assessmen t) OUTPATIENT [id number] MELQUIADES JIMENES 09/10 Released w/o Limitations [employer](D eployme nt Health Assessm ent) [employer](PHA Cell) OUTPATIENT [id number] PHA RAMONA NAVARRO 09/10 Released w/o Limitations [employer]([facility] [place] [facility]) [employer]([facility]) OUTPATIENT [id number] back pain RAMONA NAVARRO 09/13 Released w/o Limitations [employer]([facility]) [employer]([facility] Health [facility]) TELE CONSULT [id number] Notes Entered by: ZAINAB NAVARRO 16 Sep 2014 0825 ------- ------- ------- ------- -- PT REFERAL PAYAM ANTONY 09/16 [employer]([facility]) [facility] Medical [facility](Opt ometry Clinic) OUTPATIENT [id number] CRS Workup/ bring paperwo rk/no contact s ARANMOLATE , LAURA A 01/28 Released w/o Limitations [address] [place] [address](O ptometr y Clinic) [facility]) OUTPATIENT [id number] CRS PRE OP COLGAINDIGO DUNCAN 03/07 Released w/o Limitations [facility]( Refract marely Surgery Center) [facility](Re [facility]) OUTPATIENT [id number] CONSENT BRIEFIN G ESTEFANI FULLER 03/17 Released with Work/Duty Limitations [facility]( Refract marely Surgery Center) [facility](Re [facility]) OUTPATIENT [id number] PRK ESTEFANI FULLER 03/20 Released with Work/Duty Limitations [facility]( Refract marely Surgery Center) [facility](Re [facility]ive Surgery [facility]) OUTPATIENT [id number] 5 DAY PO COLINDIGO WHITTAKER 03/24 Released with Work/Duty Limitations [facility]( Refract marely Surgery Center) [facility](Re [facility]ive Surgery [facility]) OUTPATIENT [id number] Notes Entered by: ANTONIO ROSALES 26 Mar 2015 0933 ------- ------- ------- ------- -- Eye discomf ort after PRK COLGAINDIGO DUNCAN 03/26 Released w/o Limitations [facility]( Refract marely Surgery Center) [address] [place] [address](Opt ometry Clinic) OUTPATIENT [id number] S/p PRK bandage contact ARANMOLATE , LAURA A 03/28 Released w/o Limitations [facility] Medical [facility](O ptometr y Clinic) [address] [place] [address](Opt ometry Clinic) OUTPATIENT [id number] s/p prk ARANMOLATE , LAURA A 05/07 Released w/o Limitations [facility] Medical [facility](O ptometr y Clinic) [address] [place] [address](Opt ometry Clinic) OUTPATIENT [id number] 2 mos s/p PRK ARANMOLATE , LAURA A 06/03 Released w/o Limitations [employer] [facility](O ptometr y Clinic) [employer](Opt ometry Clinic) OUTPATIENT [id number] s/p prk 3 mos/res c from BRITTKATHLEEN LAURA A 07/09 Released w/o Limitations [employer](O ptometr y Clinic) [employer](Dep [facility] Health Assessmen t) OUTPATIENT [id number] DHA4 MELQUIADES DOLL 09/03 Released w/o Limitations [employer](D eployme Health Assessm ent) [employer](PHA Cell) OUTPATIENT [id number] Notes Entered by: JAUNITA COONEY 17 Sep 2015 1030 ------- ------- ------- ------- -- PHA Record Review RAMONA NAVARRO 09/17 Released w/o Limitations [employer]([facility] [place] [facility]) [employer](Opt ometry Clinic) OUTPATIENT [id number] s/p prk LINNEA LAURA A 10/26 Released w/o Limitations [employer](O ptometr y Clinic) [employer](Pub lic Health Clinic) OUTPATIENT [id number] Notes Entered by: EVELYN MURDOCK 10 Dec 2015 1411 ------- ------- ------- ------- -- Occupat ional Audiogr am MELQUIADES DOLL 12/09 Released w/o Limitations [employer](P ublic Health Clinic) [employer]([facility] er [facility] Team [place]) OUTPATIENT [id number] hurt lower back lastnig ht at PT, causing pain MELQUIADES DOLL 12/29 Released w/o Limitations [employer](D over [facility] Team [place]) [employer](y sical Therapy Clinic) OUTPATIENT [id number] Muscle spasm of back TONY CATHERINE 12/31 Released w/o Limitations [employer](P hysical Therapy Clinic) [employer]([facility] sical Therapy Clinic) OUTPATIENT [id number] TONY CATHERINE 01/13 Released w/o Limitations [employer](P hysical Therapy Clinic) [employer](BOM C Medical) OUTPATIENT [id number] ERLIN SHEPHERD 09/24 Released w/o Limitations [employer] [facility] ) [employer]([facility] Cell) OUTPATIENT [id number] Notes Entered by: Obed RENEE 24 Sep 2016 1423 ------- ------- ------- ------- -- KALIE NEELY 09/24 Released w/o Limitations [employer]([facility] [place] [facility]) [employer](Opt ometry Clinic) OUTPATIENT [id number] 1 year s/p MERCEDEZ Santacruz 10/20 Released w/o Limitations [employer](O ptometr y Clinic) [employer](FBN [facility] [place]) OUTPATIENT [id number] Notes Entered by: NICHOLAS BLACK 08 Nov 2016 1449 ------- ------- ------- ------- -- Occupat ional Audiogr am MARIBEL SNYDER 11/08 Released w/o Limitations [employer](F [facility] [place]) [employer]([facility] [place]) OUTPATIENT [id number] Notes Entered by: RIRI PASTOR 31 Oct 2017 0753 ------- ------- ------- ------- -- Annual Audiogr am RIRI PASTOR 10/31 Released w/o Limitations [employer](F [facility] [place]) [employer]([facility] Medical) OUTPATIENT [id number] ERLIN SALAZAR 02/02 Released w/o Limitations [employer] [facility] ) [employer]([facility] Medical) OUTPATIENT [id number] VIRTUAL MIKE: PHA RR (DO NOT CALL PT) NORMA RADFORD 03/02 Released w/o Limitations [employer]([facility] ) [facility] [facility]) TELE CONSULT [id number] Notes Entered by: MAURO WALLACE 15 May 2018 1522 ------- ------- ------- ------- -- [facility] MAURO Santoyo 05/15 Referred for Appointment [address] [place] [address]([facility] ) [facility]) OUTPATIENT [id number] 2 LOWER BACK PAIN (02/21) X 2 DAY RICHARDCHERI Chad 11/13 Released w/o Limitations [facility] ([facility]) [facility] Therapy [facility]) OUTPATIENT [id number] Low back pain ERLIN LUNDBERG 12/06 Released with Work/Duty Limitations [facility] (Physic al Therapy [facility]) [facility] [place] [facility]) TELE CONSULT [id number] Notes Entered by: BELA JEONG 10 Jan 2019 1010 ------- ------- ------- ------- -- Update profile LUTHER FLOOD ROSAMARIA 01/10 Other Not Elsewhere Classified [facility] ([facility]) [facility] [place] [facility]) OUTPATIENT [id number] Notes Entered by: FLAKO RAMIREZ 15 Jan 2019 1028 ------- ------- ------- ------- -- STREP SWAB HECTOR BOONE 01/15 Released w/o Limitations [facility] ([facility]) [facility] Therapy [facility]) OUTPATIENT [id number] LBP ERLIN LUNDBERG 01/17 Released with Work/Duty Limitations [facility] ([facility]) [facility]( a Hearing Conservat ion) OUTPATIENT [id number] Audiogr am KATHLEEN MATSON 01/18 Released w/o Limitations [facility] ( Hearing Conserv ation) [facility](P [facility] Therapy [facility]) OUTPATIENT [id number] LBP ERLIN LUNDBERG 02/26 Released w/o Limitations [facility] ([facility]) [place]([facility]) OUTPATIENT [id number] WING PEREZ 03/22 Released w/o Limitations [facility] ([facility]) ID [place](P [facility] Therapy [facility]) OUTPATIENT [id number] 5 f/u LUNDBERGERLIN AZAR 04/09 Released w/o Limitations [facility] ([facility]) [facility]) OUTPATIENT [id number] Notes Entered by: Sridhar LUDWIG 04 Jun 2019 0800 ------- ------- ------- ------- -- [facility] PHA/CHERI Rust 06/03 Released w/o Limitations [facility] ([facility]) [facility]) OUTPATIENT [id number] PT REPORTS PAIN IN BASE OF NECK/LI MITED RANGE OF MOTION FLAQUITO EDGAR 06/27 Released w/o Limitations [facility] ([facility]) [facility] A [facility]) OUTPATIENT [id number] Notes Entered by: BELA JEONG 28 Jun 2019 1531 ------- ------- ------- ------- -- Race on face ANA PAULA RUBIO 06/28 Released w/o Limitations [facility] ([facility] A Team) [place]([facility] D Team) OUTPATIENT [id number] TWEAKED LT SIDE OF BACK; SHARP PX FROM CYATIC; NEW ISSUE ON LT SIDE CHERI RICHARD 04/16 [facility] Limitations [facility]) [place]([facility] Chiroprac tic Clinic) OUTPATIENT [id number] virtual chiro [id number] MONICA ERWIN 04/23 Released w/o Limitations [place] ([facility] Chiropr actic Clinic) [place]([facility] Chiroprac tic Clinic) TELE CONSULT [id number] Notes Entered by: MONICA ERWIN 29 Apr 2020 1457 ------- ------- ------- ------- -- To discuss TENS unit MONICA ERWIN 04/29 [place] [facility] [place]([facility] D Team) TELE CONSULT [id number] Notes Entered by: FLAKO RAMIREZ 05 May 2020 0835 ------- ------- ------- ------- -- MEDICAT ION REFILL CHERI MENG 05/04 Medication Refill Forwarded [facility] [place] ([facility] D Team) [facility]LE CONSULT [id number] Notes Entered by: MONICA ERWIN 06 May 2020 0821 ------- ------- ------- ------- -- To discuss MRI results MONICA ERWIN 05/05 ID [place] ([facility] ID [place]([facility] D Team) TELE CONSULT [id number] Notes Entered by: HORTENCIA BUSTAMANTE 13 May 2020 0912 ------- ------- ------- ------- -- [phone]/ ANTWAN Nuñez 05/13 Referred for Appointment [place] ([facility] D Team) [facility] [place]([facility] D Team) OUTPATIENT [id number] wants to discuss nonsurg ical option for disc extrusi on L4-L5 CHERI RICHARD 05/14 Released w/o Limitations [place] (Phan 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 CHERI NOYOLA 05/21 Released w/o Limitations [facility] [place] (Neuros urgery Clinic) ID [place]([facility] D Team) OUTPATIENT [id number] f/u post neuro appt needs eval prior to CBRNE class CONSTANZA RICHARDEL Chad 06/02 Released w/o Limitations [facility] ([facility] D Team) [facility](P ain Managemen t Clinic) OUTPATIENT [id number] Other interve rtebral disc displac ement, lumbosa cral region JIGNESH ALEXTRAVON BLANCHARD 06/02 Released w/o Limitations [facility] ([facility] Managem ent Clinic) [facility](K a [facility] D Team) TELE CONSULT [id number] Notes Entered by: PAIGE MARLEY 16 Jun 2020 1226 ------- ------- ------- ------- -- MED REFILLS /[id number] JEFF HOLMAN 06/16 Medication Refill Forwarded [facility] ([facility] D Team) [facility]) OUTPATIENT [id number] Annual A MICHEAL CEJA 06/18 Released w/o Limitations [facility] ([facility]) [facility]( a [facility] D Team) TELE CONSULT [id number] Notes Entered by: Chandler MYRICK 09 Jul 2020 1429 ------- ------- ------- ------- -- Network Results - Pain Clinic [id number] CHERI RICHARD 07/09 [facility] ([facility] D Team) [facility](K a [facility] A Team) TELE CONSULT [id number] Notes Entered by: Wallace RAE 18 Jul 2020 0821 ------- ------- ------- ------- -- PCR TEST REQUEST JEFF MOORE 07/17 Other Not Elsewhere Classified [facility] ([facility] A Team) [facility] D Team) TELE CONSULT [id number] Notes Entered by: Alethea CASON 11 Aug 2020 1009 ------- ------- ------- ------- -- NEW PROFILE /RX REFIL [phone] YUSRA CHERI ERIK 08/11 Other Not Elsewhere Classified [facility] ([facility] D Team) [facility](P ain Managemen t Clinic) OUTPATIENT [id number] 2 f/u JIGNESHALEX SouzaPAMELA 08/11 Released w/o Limitations [facility] ([facility] Managem ent [facility]) [facility](N eurosurge ry Clinic) TELE CONSULT [id number] Notes Entered by: Obed NOYOLA 26 Aug 2020 0902 ------- ------- ------- ------- -- Regardi ng profile CHERI NOYOLA 08/26 [facility] (Neuros urgery Clinic) [facility]) OUTPATIENT [id number] Notes Entered by: TONY ALLRED 27 Aug 2020 0929 ------- ------- ------- ------- -- TRI SERVICE PHA/CDB CHERI RICHARD Chad 08/27 Released w/o Limitations [facility] ([facility]) [facility] Phys Therapy [facility]) OUTPATIENT [id number] Notes Entered by: PHAN CLAYTON 03 Dec 2020 1448 ------- ------- ------- ------- -- Low back pain JARVIS HEWITT 12/03 Released w/o Limitations [facility] ([facility]) [facility]) OUTPATIENT [id number] Notes Entered by: HPAN CLAYTON 31 Dec 2020 1633 ------- ------- ------- ------- -- treatme nt JARVIS HEWITT 12/31 Released w/o Limitations [facility] [place] ([facility]) [place]([facility] a [facility] A Team) OUTPATIENT [id number] PT REQ F2F/ L SIDE PX CAUSING DROPPIN G TO GROUND. BACK WONT ARCH OR STRETCH KAM OWEN 06/23 Released w/o Limitations [place] ([facility] A Team) [place](N eurosurge ry Clinic) TELE CONSULT [id number] Notes Entered by: LEANNE MEADE 29 Jun 2021 1337 ------- ------- ------- ------- -- decline d referra l per LEANNE Flores 06/29 Other Not Elsewhere Classified [facility] (Neuros [facility]gery Clinic) ID [place]( a [facility] A Team) TELE CONSULT [id number] Notes Entered by: IZABEL BLOOD 21 Jul 2021 0907 ------- ------- ------- ------- -- PROFILE ROBERTA MEJIA 07/21 Other Not Elsewhere Classified [place] ([facility] A Team) ID [place]( a Hearing Conservat ion) OUTPATIENT [id number] Audio -- ChioA MILA WELSH 08/12 Released w/o Limitations [facility] ( Hearing Conserv ation) [facility]( a [facility] D Team) TELE CONSULT [id number] Notes Entered by: Matthew TSANG 25 Aug 2021 174 ------- ------- ------- ------- -- Pos Covid-1 9 Result Patient needs to be notifie BURTON Vernon 08/25 [place] ([facility] D Team) [facility]( a [facility] A Team) TELE CONSULT [id number] Notes Entered by: CHERIE ARCE 03 Sep 2021 1507 ------- ------- ------- ------- -- f/u MRI RAMONA HERNANDEZ 09/03 Other Not Elsewhere Classified [place] ([facility] A Team) ID [facility]) OUTPATIENT [id number] MHA;COM PLETED MICHEAL MONK 09/15 Released w/o Limitations [facility] ([facility]) [facility] Imms) OUTPATIENT [id number] Notes Entered by: ELVA PARDO 02 Nov 2021 1530 ------- ------- ------- ------- -- JOSEPH CANCINO 11/02 Released w/o Limitations [place] ([facility] Imms) ID [facility]) OUTPATIENT [id number] Notes Entered by: JEFF MOORE 10 Nov 2021 1307 ------- ------- ------- ------- -- Tri-Ser KAM Lizarraga 11/10 Released w/o Limitations [facility] ([facility]) Procedures Combined list of: 1) Procedures [...] DETERM FOR CONTRAST SENSITIV,VIS UND GLARE) 2007 [facility] HEALTH AND BEHAVIOR INTERVENTION, EACH 15 MINUTES, [id number]; GROUP (2 OR MORE PATIENTS) 2005 [facility] INDIVIDUAL PSYCHOTHERAPY, INSIGHT ORIENTED, BEHAVIOR MODIFYING AND/OR SUPPORTIVE, IN AN OFFICE OR OUTPATIENT FACILITY, APPROXIMATELY 20 TO 30 MINUTES PDRM-DN-PULV WITH THE PATIENT 2003 [facility] MEDICAL NUTRITION THERAPY; GROUP (2 OR MORE INDIVIDUAL(S)), EACH 30 MINUTES 2003 [facility] GROUP PSYCHOTHERAPY (OTHER THAN OF A MULTIPLE-FAMILY GROUP) 2003 [facility] UNLISTED PSYCHIATRIC SERVICE OR PROCEDURE 2003 [facility] PSYCHIATRIC DIAGNOSTIC INTERVIEW EXAMINATION 2003 [facility] ONLINE ASSESS &MANAG SERV PROVIDE,A QUAL NONPHYS HCP TO AN ESTABLISHED PAT/GUARDIAN,NOT ORIGINAT FRM RELAT ASSESS &MANAG SERV PROVIDE W/IN THE PREV 7 DAYS,USE THE INTERNET/SIMILAR [employer] NETWORK 2017 DoD ADMINISTRATION OF PATIENT-FOCUSED HEALTH RISK ASSESSMENT INSTRUMENT (EG, HEALTH HAZARD APPRAISAL) WITH SCORING AND DOCUMENTATION, PER STANDARDIZED INSTRUMENT 2017 [facility] ADMINISTRATION OF PATIENT-FOCUSED HEALTH RISK ASSESSMENT INSTRUMENT (EG, HEALTH HAZARD APPRAISAL) WITH SCORING AND DOCUMENTATION, PER STANDARDIZED INSTRUMENT 2017 [facility]D PURE TONE AUDIOMETRY (THRESHOLD), AUTOMATED; AIR ONLY 2017 DoD PURE TONE AUDIOMETRY (THRESHOLD), AUTOMATED; AIR ONLY 2016 DoD DETERMINATION OF REFRACTIVE STATE 2016 DoD PHYSICAL THERAPY RE-EVALUATION 2015 [facility] APPLICATION OF A MODALITY TO 1 OR MORE AREAS; ELECTRICAL STIMULATION (MANUAL), EACH 15 MINUTES 2015 DoD PURE TONE AUDIOMETRY (THRESHOLD); AIR ONLY 2015 DoD DETERMINATION OF REFRACTIVE STATE 2015 DoD DETERMINATION OF REFRACTIVE STATE 2014 DoD POSTOPERATIVE FOLLOW-UP VISIT, NORMALLY INCLUDED IN THE SURGICAL PACKAGE, INDICATE THAT EVALUATION & MANAGEMENT SERVICE WAS PERFORMED DURING A POSTOPERATIVE PERIOD REASON RELATED ORIGINAL PROCEDURE 2014 DoD POSTOPERATIVE FOLLOW-UP VISIT, NORMALLY INCLUDED IN THE SURGICAL PACKAGE, INDICATE THAT EVALUATION & MANAGEMENT SERVICE WAS PERFORMED DURING A POSTOPERATIVE PERIOD REASON RELATED ORIGINAL PROCEDURE 2014 [facility] PHOTOREFRACTIVE KERATECTOMY (PRK) 2014 [facility] COMPUTERIZED CORNEAL TOPOGRAPHY, UNILATERAL OR BILATERAL, WITH INTERPRETATION AND REPORT 2014 [facility] NEUROPSYCHOLOGICAL TESTING (EG, [place] CARD SORTING TEST), ADMINISTERED BY A COMPUTER, WITH QUALIFIED HEALTH CITY DESIGNER INTERPRETATION AND REPORT 2013 [facility] PRESCRIPTION OF OPTICAL AND PHYSICAL CHARACTERISTICS OF AND FITTING OF CONTACT LENS, WITH MEDICAL SUPERVISION OF ADAPTATION; CORNEAL LENS, BOTH EYES, EXCEPT FOR APHAKIA 2013 DoD PURE TONE AUDIOMETRY (THRESHOLD); AIR ONLY 2012 [facility] OPHTHALMOLOGICAL SERVICES: MEDICAL EXAMINATION AND EVALUATION, WITH INITIATION OR CONTINUATION OF DIAGNOSTIC AND TREATMENT PROGRAM; COMPREHENSIVE, ESTABLISHED PATIENT, 1 OR MORE VISITS 2012 DoD NEUROPSYCHOLOGICAL TESTING (EG, [place] CARD SORTING TEST), ADMINISTERED BY A COMPUTER, WITH QUALIFIED HEALTH CITY DESIGNER INTERPRETATION AND REPORT 2011 [facility] PRESCRIPTION OF OPTICAL AND PHYSICAL CHARACTERISTICS OF AND FITTING OF CONTACT LENS, WITH MEDICAL SUPERVISION OF ADAPTATION; CORNEAL LENS, BOTH EYES, EXCEPT FOR APHAKIA 2011 [facility] ADMINISTRATION OF PATIENT-FOCUSED HEALTH RISK ASSESSMENT INSTRUMENT (EG, HEALTH HAZARD APPRAISAL) WITH SCORING AND DOCUMENTATION, PER STANDARDIZED INSTRUMENT 2021 DoD IMMUNIZATION ADM,IM INJECT,SEVERE AC RESPIRATORY SYNDROME CORONAVIR 2 (SARS-COV-2) (CORONAVIR DIS [COVID-19]) VACC,MRNA-LNP,SPIKE PROT,PRESRV FREE,30 MCG/0.3 ML DOSAG,DILUENT RECONSTIT;BOOSTER DOSE 2021 DoD ADMINISTRATION OF PATIENT-FOCUSED HEALTH RISK ASSESSMENT [...] NEXT 24HR/SOON MIKE; 5-10 MIN DISC 2021 [facility] PATIENT EDUCATION, NOT OTHERWISE CLASSIFIED, NON-PHYSICIAN PROVIDER, INDIVIDUAL, PER SESSION 2020 [facility] APPLICATION OF A MODALITY TO 1 OR MORE AREAS; ELECTRICAL STIMULATION (MANUAL), EACH 15 MINUTES 2020 [facility] BIOFEEDBACK TRAINING BY ANY MODALITY 2020 [facility] ADMINISTRATION OF PATIENT-FOCUSED HEALTH RISK ASSESSMENT INSTRUMENT (EG, HEALTH HAZARD APPRAISAL) WITH SCORING AND DOCUMENTATION, PER STANDARDIZED INSTRUMENT 2020 [facility] TELE ASSESS & MGT SRV PROV QUAL [...] EQUIP) DIR ONE-ON-ONE CONT,EA 15 MINUTES 2019 DoD VITAL SIGNS (TEMPERATURE, PULSE, RESPIRATORY RATE, AND BLOOD PRESSURE) DOCUMENTED AND REVIEWED (CAP) (EM) 2018 DoD ADMINISTRATION OF PATIENT-FOCUSED HEALTH RISK ASSESSMENT [...] SCORING AND DOCUMENTATION, PER STANDARDIZED INSTRUMENT 2018 [facility] THERAPEUTIC PROCEDURE, 1 OR MORE AREAS, EACH 15 MINUTES; THERAPEUTIC EXERCISES TO DEVELOP STRENGTH AND ENDURANCE, RANGE OF MOTION AND FLEXIBILITY 2018 [facility] PATIENT EDUCATION, NOT OTHERWISE CLASSIFIED, NON-PHYSICIAN [...] DIR ONE-ON-ONE CONT,EA 15 MINUTES 2018 DoD PRESCRIPTION OF OPTICAL AND PHYSICAL CHARACTERISTICS OF AND FITTING OF CONTACT LENS, WITH MEDICAL SUPERVISION OF ADAPTATION; CORNEAL LENS, BOTH EYES, EXCEPT FOR APHAKIA 2010 DoD WEIGHT RECORDED (PAG) 2010 DoD FITTING OF SPECTACLES, EXCEPT FOR APHAKIA; MONOFOCAL 2009 [facility] TELE ASSESS & MGT SRV PROV QUAL NONPHYS HLTH CARE PRO TO EST PAT,PARENT,GUARD NOT ORIG REL ASSESS & MGT SRV PROV W/IN PREV 7 DAYS NOR LEAD ASSESS & MGT SRV/PX W/IN NXT 24 HR/SOON APT;5-10 MIN MED DIS 2009 DoD POSTOPERATIVE FOLLOW-UP VISIT, NORMALLY INCLUDED IN THE SURGICAL PACKAGE, INDICATE THAT EVALUATION & MANAGEMENT SERVICE WAS PERFORMED DURING A POSTOPERATIVE PERIOD REASON RELATED ORIGINAL PROCEDURE 2014 DoD POSTOPERATIVE FOLLOW-UP VISIT, NORMALLY INCLUDED IN THE SURGICAL PACKAGE, INDICATE THAT EVALUATION & MANAGEMENT SERVICE WAS PERFORMED DURING A POSTOPERATIVE PERIOD REASON RELATED ORIGINAL PROCEDURE 2014 [facility] PHOTOREFRACTIVE KERATECTOMY (PRK) 2014 [facility] PHYS/OTH QUALIFIED HEALTH CITY DESIGNER QUALIFIED,EDUCATION, TRAIN,LICENSURE/REGU LATION (WHEN APPLICABLE) EDUC SER RENDERED TO PATS IN A GRP SETTING (EG,,OBESITY ,OR DIABETIC INSTRUCT) 2014 [facility] COMPUTERIZED CORNEAL TOPOGRAPHY, UNILATERAL OR BILATERAL, WITH INTERPRETATION AND REPORT 2014 [facility] Determination Of Refractive State Determination Of Refractive State 93757 2009 LEANNE COLLIER Ophthalmological New Patient Start Comprehensive Care Ophthalmological New Patient Start Comprehensive Care [id number] 2009 LEANNE COLLIER [facility] Non-Physician Phone Call To Patient/Provider Brief (5-10min) Non-Physician Phone Call To Patient/Provider Brief (5-10min) 87112 2009 NADIRA MANZANARES [facility] Visual Function Screening Visual Function Screening 12827 2007 SILVIA AGGARWAL [facility] Health And Behav Intervention, Each Additional 15 Min Grp (2 Or More) Health And Behav Intervention, Each Additional 15 Min Grp (2 Or More) 78677 2005 MONICA GODINEZ Phys Therapy Education Self Care Training - Per 15 Minutes Phys Therapy Education Self Care Training - Per 15 Minutes 92751 2018 ERLIN LUNDBERG Physical Therapy Service Re-Evaluation Physical Therapy Service Re-Evaluation 81012 2018 ERLIN LUNDBERG Psychometric Emotional / Behavioral A e ment Psychometric Emotional / Behavioral Assessment 95147 2018 WING TRAN Preventive Medicine Administration Of Health Risk Questionnaire Patient-Focused Preventive Medicine Administration Of Health Risk Questionnaire Patient-Focused 07933 2018 WING TRAN Internet Med Svc Qual Nonps Healthcare Prof Up To 7 Days Estab Patient Internet Med Svc Qual Nonps Healthcare Prof Up To 7 Days Estab Patient 28226 2018 WING TRAN A isted Exercises For ROM Assisted Exercises For ROM 69240 2018 ERLIN LUNDBERG Physical Therapy Service Re-Evaluation Physical Therapy Service Re-Evaluation 00596 2018 ERLIN LUNDBERG Patient education, not otherwise cla ified, non-physician provider, individual, per se ion 2018 KATHLEEN MATSON Threshold Audiogram (Pure Tone) Automated Threshold Audiogram (Pure Tone) Automated 0208T 2018 KATHLEEN MATSON Phys Therapy Education Self Care Training - Per 15 Minutes Phys Therapy Education Self Care Training - Per 15 Minutes 92949 2018 ERLIN LUNDBERG Physical Therapy Service Re-Evaluation Physical Therapy Service Re-Evaluation 10486 2018 ERLIN LUNDBERG Phys Therapy Education Self Care Training - Per 15 Minutes Phys Therapy Education Self Care Training - Per 15 Minutes 11463 2018 ERLIN LUNDBERG Physical Therapy Service Evaluation Low Complexity Physical Therapy Service Evaluation Low Complexity 48658 2018 ERLIN LUNDBERG Internet Med Svc Qual Nonphys Healthcare Prof Up To 7 Days Estab Patient Internet Med Svc Qual Nonphys Healthcare Prof Up To 7 Days Estab Patient 58747 2017 MAURO MARTIN Preventive Medicine Administration Of Health Risk Questionnaire Patient-Focused Preventive Medicine Administration Of Health Risk Questionnaire Patient-Focused 60149 2017 NORMA RADFORD Preventive Medicine Administration Of Health Risk Questionnaire Patient-Focused Preventive Medicine Administration Of Health Risk Questionnaire Patient-Focused 09114 2017 ERLIN SHEPHERD Threshold Audiogram (Pure Tone) Threshold Audiogram (Pure Tone) 07378 2017 RIRI PASTOR Threshold Audiogram (Pure Tone) Threshold Audiogram (Pure Tone) 77178 2016 MARIBEL SNYDER [facility] Determination Of Refractive State Determination Of Refractive State 75088 2016 MERCEDEZ LANDIN Ophthalmological Prior Patient Start Comprehensive Care Ophthalmological Prior Patient Start Comprehensive Care 69267 2016 MERCEDEZ LANDIN Physical Therapy Service Re-Evaluation Physical Therapy Service Re-Evaluation 83664 2015 TONY CATHERINE Modalities Electrical Stimulation Modalities Electrical Stimulation 70957 2015 TONY CATHERINE Modalities Heat Hot Packs Modalities Heat Hot Packs 96549 2015 TONY CATHERINE A isted Exercises For ROM Assisted Exercises For ROM 72839 2015 TONY CATHERINE Physical Therapy Service Evaluation Physical Therapy Service Evaluation 95743 2015 TONY CATHERINE Threshold Audiogram (Pure Tone) Threshold Audiogram (Pure Tone) 16745 2015 EVELYN MATSON Determination Of Refractive State Determination Of Refractive State 21402 2015 ARANMKATHLEEN LAURA A [place] Ophthalmological Prior Patient Start Comprehensive Care Ophthalmological Prior Patient Start Comprehensive Care 97875 2015 ARANMOLATE, LAURA A [place] Determination Of Refractive State Determination Of Refractive State 33340 2014 ARANMOLATE, LAURA A [place] Ophthalmological Prior Patient Start Comprehensive Care Ophthalmological Prior Patient Start Comprehensive Care 10151 2014 ARANMOLATE, LAURA A [place] Postoperative Visit, Without Charge Postoperative Visit, Without Charge 97147 2014 ARANMOLATE, LAURA A [place] Postoperative Visit, Without Charge Postoperative Visit, Without Charge 73262 2014 ARANMKATHLEEN LAURA A [place] Photorefractive keratectomy (PRK) 2014 ARANMKATHLEEN LAURA A [place] Postoperative Visit, Without Charge Postoperative Visit, Without Charge 01320 2014 INDIGO WALTON Postoperative Visit, Without Charge Postoperative Visit, Without Charge 45322 2014 PREMA ROSALES Photorefractive keratectomy (PRK) 2014 KHALIF POSEY Physician Supervised Group Educational Services Physician Supervised Group Educational Services 42884 2014 AMAN LISA Determination Of Refractive State Determination Of Refractive State 45379 2014 INDIGO WALTON Fundoscopic Exam Extensive Initial Exam Fundoscopic Exam Extensive Initial Exam 75314 2014 INDIGO WALTON Computerized Corneal Topography Computerized Corneal Topography 32355 2014 INDIGO WALTON Ophthalmological New Patient Start Comprehensive Care Ophthalmological New Patient Start Comprehensive Care 28240 2014 INDIGO WALTON Corneal Pachymetry, Bilateral With Interpret And Report Corneal Pachymetry, Bilateral With Interpret And Report 67075 2014 INDIGO WALTON Computerized Corneal Topography Computerized Corneal Topography 98098 2014 LINNEA LAURA A [place] Corneal Pachymetry, Bilateral With Interpret And Report Corneal Pachymetry, Bilateral With Interpret And Report 14078 2014 ARAKELSEA LAURA A [place] Determination Of Refractive State Determination Of Refractive State [id number] ARAMELECIO ENAMORADOMILAYO A [place] Ophthalmological Prior Patient Start Comprehensive Care Ophthalmological Prior Patient Start Comprehensive Care [id number] ARAMASSIMO ENAMORADOLAYO A [place] Psychometric Neuropsych Testing Battery Admin By Computer Psychometric Neuropsych Testing Battery Admin By Computer 84649 2013 JUANITA FIELDS Prescription And Fitting Bilateral Corneal Lenses (Not For Aphakia) Prescription And Fitting Bilateral Corneal Lenses (Not For Aphakia) [id number] BRITNI GARCIA [employer] [facility] Fitting Monofocal Except For Aphakia [employer] Services Fitting Monofocal Except For Aphakia 80416 2013 BRITNI GARCIA Determination Of Refractive State Determination Of Refractive State 2013 BRITNI GARCIA Ophthalmological Prior Patient Start Comprehensive Care Ophthalmological Prior Patient Start Comprehensive Care 2013 BRITNI GARCIA Threshold Audiogram (Pure Tone) Threshold Audiogram (Pure Tone) [id number] 2012 SYLVIE OLIVO [facility] Ophthalmological Prior Patient Start Comprehensive Care Ophthalmological Prior Patient Start Comprehensive Care [id number] NONA LUCIANO Spectacles Services Fitting Monofocal Except For Aphakia Spectacles Services Fitting Monofocal Except For Aphakia 18103 2012 NONA LUCIANO Prescription And Fitting Bilateral Corneal Lenses (Not For Aphakia) Prescription And Fitting Bilateral Corneal Lenses (Not For Aphakia) 2012 NONA LUCIANO Rx Biofinity Toric 8.7/14.5/ OD: -0.75-0.68q215 OS: -0.75-0.66c024 Daily wear (12-14 hours); replace monthly; clean with MPS (rub & rinse to prevent build up) Stressed compliance with prescribed lens care regimen to reduce risk of infection and other complications Maite Determination Of Refractive State Determination Of Refractive State 2012 NONA LUCIANO Rx subj Order FOC/5A/Inserts Maite Psychometric Neuropsych Testing Battery Admin By Computer Psychometric Neuropsych Testing Battery Admin By Computer [id number] 2011 LISA CADET Prescription And Fitting Bilateral Corneal Lenses (Not For Aphakia) Prescription And Fitting Bilateral Corneal Lenses (Not For Aphakia) 27209 2011 NONA LUCIANO Rx Biofinity Toric 8.7/14.5/ OD: -0.75-0.56v366 OS: -0.50-0.39j558 Daily wear (12-14 hours); replace monthly; clean with MPS (rub & rinse to prevent build up) Stressed compliance with prescribed lens care regimen to reduce risk of infection and other complications Maite Spectacles Services Fitting Monofocal Except For Aphakia Spectacles Services Fitting Monofocal Except For Aphakia 30112 2011 NONA LUCIANO Determination Of Refractive State Determination Of Refractive State 97215 2011 NONA LUCIANO Rx subj Order FOC/S9 or 5A/inserts DoD Ophthalmological New Patient Start Comprehensive Care Ophthalmological New Patient Start Comprehensive Care 05529 2011 NONA LUCIANO Prescription And Fitting Bilateral Corneal Lenses (Not For Aphakia) Prescription And Fitting Bilateral Corneal Lenses (Not For Aphakia) 75004 2010 LEANNE COLLIER Spectacles Services Fitting Monofocal Except For Aphakia Spectacles Services Fitting Monofocal Except For Aphakia 36978 2010 LEANNE COLLIER FOC, S9, GMI DoD Ophthalmological Prior Patient Start Comprehensive Care Ophthalmological Prior Patient Start Comprehensive Care 25802 2010 LEANNE COLLIER Determination Of Refractive State Determination Of Refractive State 15784 2010 LEANNE COLLIER Weight Recorded 2010 BURTON OCONNELL Lipid Panel Test Results Documented And Reviewed Lipid Panel Test Results Documented And Reviewed 3011F 2010 BURTON OCONNELL Screening Test Of Visual Acuity, Quantitative, Bilateral Screening Test Of Visual Acuity, Quantitative, Bilateral 27793 2010 BURTON OCONNELL Spectacles Services Fitting Monofocal Except For Aphakia Spectacles Services Fitting Monofocal Except For Aphakia 66291 2009 LEANNE COLLIER, GMIx2 [facility] Preventive Medicine Administration Of Health Risk Questionnaire Patient-Focused Preventive Medicine Administration Of Health Risk Questionnaire Patient-Focused [id number] CHERI RICHARD [facility] Vital Signs Recorded Vital Signs Recorded ANA PAULA RUBIO [facility] Patient Counseling Medical Management Individual Patient Patient Counseling Medical Management Individual Patient [id number] ANA PAULA RUBIO [facility] Waiver services; not otherwise specified (NOS) MONICA ERWIN [facility] Phys Therapy Education Self Care Training - Per 15 Minutes Phys Therapy Education Self Care Training - Per 15 Minutes [id number] MONICA ERWIN [facility] Non-Physician Phone Call To Patient/Provider Brief (5-10min) Non-Physician Phone Call To Patient/Provider Brief (5-10min) [id number] CHERI MENG [facility] Non-Physician Phone Call To Pt/Provider Intermed (11-20 min) Non-Physician Phone Call To Pt/Provider Intermed (11-20 min) 60725 ANTWAN SEPULVEDA [facility] Brief communication technology-based service, e.g. virtual [...] 5-10 minutes of medical discu SANTO Galvan [facility] Physical Therapy Service Evaluation Low Complexity Physical Therapy Service Evaluation Low Complexity 70712 JARVIS VIDES Physical Therapy Neuromuscular Re-education Physical Therapy Neuromuscular Re-education 44172 JARVIS VIDES Biofeedback Training By Any Modality Biofeedback Training By Any Modality 95388 JARVIS VIDES Mobilization Soft Ti ue Mobilization Soft Tissue 24096 JARVIS VIDES Modalities Electrical Stimulation Modalities Electrical Stimulation 83443 JARVIS VIDES Patient education, not otherwise cla ified, non-physician provider, individual, per se ion MILA WELSH Threshold Audiogram (Pure Tone) Automated Threshold Audiogram (Pure Tone) Automated 0208T MILA WELSH Non-Physician Phone Call To Pt/Provider Lengthy (21-30 min) Non-Physician Phone Call To Pt/Provider Lengthy (21-30 min) 30888 RAMONA HERNANDEZ [facility] Vaccine SARS-CoV-2 mRNA-LNP Toy Protein Preservative Free 30mcg/0.3mL Diluent Reconstituted IM Vaccine SARS-CoV-2 mRNA-LNP Toy Protein Preservative Free 30mcg/0.3mL [place] [address] JOSEPH MARCOS COVID-19, 30 mcg/0.3 mL dose (Pfizer 12+ years); Series #: 3; 0.3 mL; IM; Right Arm; Mfg: [employer]; Lot: [id number]; VIS given (Emiliano: 08/17/2021). 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 Social History Type Response Date Comment Sour e This section is an empty social history section. [employer]D
== END 2024-08-31 14:20 | disposition home or self-care (01) ==
PROVIDERS: PCP Nurse Practitioner Family
DX: G56.03 Carpal tunnel syndrome, bilateral upper limbs (principal)
CPT/HCPCS: 99204

== ENCOUNTER → 2024-08-31 13:18 | Outpatient (BNVA) | payer OTHER, SELFPAY | PROVIDERS: PCP Nurse Practitioner Family | DX: G56.03 Carpal tunnel syndrome, bilateral upper limbs (principal) | CPT/HCPCS: 99202 ==

== ENCOUNTER 2024-10-30 09:51 | Outpatient (AMB) | payer OTHER, SELFPAY ==
[2024-10-30 09:53] VITALS: BP 122/82; PULSE 70; TEMP 36.7; O2SAT 98; BMI 28.1
--- NOTE | 2024-10-30 09:53 | MHC.PC.OV ---
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 Required: No Accompanied by: Self / Same As Patient Allergies No Known Allergies Allergy (Verified 10/30/24 09:53) Medication List - Last Reconciled 10/30/24 by Stephan Cm, DIGITAL SERVICE ENGINEER- buspirone 10 mg PO BID 30 days escitalopram oxalate (Lexapro) 10 mg PO DAILY Tobacco use date assessed: 10/30/24 Dental Screening Dental Screen Date: 10/30/24 Did you have a dental visit in the last 12 months?: Yes Did you have a dental problem in the last 6 months where you did not have access to dental care?: No Was dental information given to patient?: Patient has dentist HPI Right shoulder pain HPI Details Chief Complaint The patient presents with persistent right shoulder pain following a gym injury. History of Present Illness The patient is a 39-year-old male presenting with right shoulder pain, which began after an incident at the gym involving a bench press exercise around [id number] while on assignment. He experienced a peculiar sensation along with discomfort in the right anterior shoulder. Symptoms include intermittent clicking during shoulder movements and pain that intensifies with lateral motion of the right upper limb, specifically noted during lateral raises. Pain is prominent in the anterior shoulder region. Tests show positivity for Neer's and Vic's assessments, raising the possibility of shoulder impingement or a rotator cuff tear. Social History - Physical activity includes gym workouts. Health Maintenance Review of Systems Physical Exam General: Cooperative, healthy appearing, comfortable, no acute distress and well developed Orientation: Patient oriented x3 Limitations: Trouble with any lateral movement of the right upper extremity with increased pain in the shoulder region, especially anterior region Head: Normal to inspection Ears: Hearing grossly normal bilaterally Nose: Normal external nose present Face and sinus: Normal facial exam Eyes: Appearance normal, both eyes and all related structures Neck: Normal visual inspection and Yes full ROM Respiratory: Normal respiratory effort and able to speak in complete sentences. Clear to auscultation bilaterally Cardiovascular: Regular rate and rhythm. Normal S1 and S2. Positive radial pulse GI: Normal to inspection. Soft to palpation and nontender Skin: No rashes or lesions noted Neuro: Patient oriented x3 Extremities: Difficulty with lateral raises of the right upper extremity. Normal to inspection, + neer's and vic's Results Plan I suspect that the patient's right shoulder pain is due to shoulder impingement or a rotator cuff tear. We will start with an x-ray to exclude any structural damage. I recommend engaging in physical therapy to improve mobility and alleviate pain. Should the symptoms persist, an MRI will be considered for further evaluation of the rotator cuff. Depending on those results, referral to an business applications specialist may be necessary. Discussion Notes I discussed with the patient the suspicion of either shoulder impingement or a rotator cuff tear based on positive Neer's and Vic's tests. The initial step is to obtain an x-ray to assess any bony abnormalities and to initiate physical therapy aimed at pain reduction and functional improvement. I explained that should physical therapy not result in improvement, an MRI would be warranted to evaluate possible soft tissue damage further. I reassured the patient that we will consider an orthopedic consultation depending on the MRI findings. Patient Instructions - Perform prescribed exercises in physical therapy regularly. - Attend all physical therapy sessions as recommended. - Follow up for x-ray results and further instructions. - Return promptly if symptoms significantly worsen or if new symptoms appear. 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 1. Little interest or pleasure in doing things: several days 2. Feeling down, depressed, or hopeless: several days 3. Trouble falling or staying asleep, or sleeping too much: more than half the days 4. Feeling tired or having little energy: several days 5. Poor appetite or overeating: not at all 6. Feeling bad about yourself - or that you are a failure or have let yourself or your family down: not at all 7. Trouble concentrating on things, such as reading the newspaper or watching television: several days 8. Moving or speaking so slowly that other people could have noticed. Or the opposite - being so fidgety or restless that you have been moving around a lot more than usual: several days 9. Thoughts that you would be better off or of hurting yourself in some way: not at all Total score: 7 Depression Screening Interpretation: Negative Depression Screening Done: Yes 54574 - PHQ-9 Billing: Yes Source: Developed by Drs. Kavon Feliz, Belen Lopez, Adalid Smith and colleagues, with an educational fred from [employer]. Thrive Questionnaire Date Thrive assessed: 10/30/24 I am a: Patient What is your living situation today?: I have a steady place to live Within the past 12 months, did the food you bought not last and you didn't have the money to get more?: Never true Within the past 12 months, did you worry whether your food would run out before you got money to buy more?: Never true Do you have trouble paying for medicines?: No Do you have trouble getting transportation to medical appointments?: No Do you have trouble paying your heating and electricity bill?: No Do you have trouble taking care of your child, family member or friend?: No Do you have trouble with day-to-day activities such as bathing, preparing meals, shopping, managing finances, etc.?: No Are you currently unemployed and looking for a job?: No Are you interested in more education?: No Please select the resources that you would like help with: None Currently or been in a relationship where the following occur: No concerns reported THRIVE Score: 0 AUDIT C Alcohol Use Questionnaire (AUDIT-C) 1. How often do you have a drink containing alcohol?: 2-4 times a month 2. How many drinks containing alcohol do you have on a typical day when you are drinking?: 1 or 2 3. How often do you have six or more drinks on one occasion?: Never Total Score: 2 Score Reviewed/Action Taken: Yes PRICE-7 AMB Questionnaire PRICE-7 Date PRICE - 7 assessed: 10/30/24 Feeling nervous, anxious, or on edge: 2 = More than half the days Not being able to stop or control worryin = Several days Worrying too much about different things: 2 = More than half the days Trouble relaxin = More than half the days Being so restless that it is hard to sit still: 1 = Several days Becoming easily annoyed or irritable: 1 = Several days Feeling afraid as if something awful might happen: 0 = Not at all Total PRICE-7 score (0-4 normal; 5-9 mild; 10-14 moderate; 15-21 severe): 9 Source: Developed by Drs. Kavon Feliz, Belen Lopez, Adalid Smith and colleagues, with an educational fred from [employer]. PRICE-7 Assessment Billing PRICE-7 Assessment Tool: PRICE-7 Assessment 63371 Physical exam (Primary Care) Vital Signs: Last Vital Signs Temp 98.0 F 10/30/24 09:53 Pulse 70 10/30/24 09:53 BP 122/82 10/30/24 09:53 Pulse Ox 98 10/30/24 09:53 Oxygen Delivery Method Room Air 10/30/24 09:53 BMI result Body Mass Index 28.1 Tobacco/Smoking Status: Tobacco use Status Tobacco use date assessed 10/30/24 10/30/24 09:55 Patient Tobacco Use Status Former Tobacco user 10/30/24 09:55 e-Cigarette/Vaping Use Never Used 10/30/24 09:55 PHQ-9: PHQ-9 Score PHQ-9: Total score 7 10/30/24 10:44 Depression Screening Interpretation: Negative Thrive Assessment: Date of Thrive Assessment Date Thrive assessed 10/30/24 10/30/24 09:55 Currently or been in a relationship where the following occur: No concerns reported Coding Level of Care Code Est Pt Level 3 (41142) Diagnoses Right shoulder pain M25.511 Additional Codes PRICE-7 Assessment Billing - PRICE-7 Assessment Tool: PRICE-7 Assessment 72396 ([id number]) PHQ-9 - 94543 - PHQ-9 Billing: Yes ([id number]) Assessment & Plan Assessment & Plan (1) Right shoulder pain: Code(s): M25.511 - Pain in right shoulder Category: Medical Plan . Orders: Orders XR shoulder RT min 2V Today M25.511 - Pain in right shoulder PT Evaluation and Treatment Today M25.511 - Pain in right shoulder
== END 2024-10-30 11:08 | disposition home or self-care (01) ==
LOC: HO.HMCC 09:52
PROVIDERS: PCP Nurse Practitioner Family; Visit Provider Nurse Practitioner Family
DX: M25.511 Pain in right shoulder (principal)

== ENCOUNTER 2024-10-30 09:51 | Outpatient (REF) | payer OTHER, SELFPAY ==
--- NOTE | ~2024-10-30 | XR_ITS ---
EXAMINATION: XR SHOULDER 2 OR MORE VIEWS RIGHT HISTORY: M25.511 - Pain in right shoulder COMPARISON: There are no prior studies available for comparison. FINDINGS: Four views of the right shoulder are submitted. Osseous mineralization is normal. There is no fracture or dislocation. The joint spaces are preserved. The soft tissues are unremarkable. XR/XR shoulder RT min 2V IMPRESSION: Unremarkable examination of the right shoulder. Electronically signed by: Kavon Hyman MD 10/30/2024 03:09 PM EDT
== END 2024-10-30 09:52 | disposition home or self-care (01) ==
LOC: HO.HMGCX 09:51
PROVIDERS: PCP Nurse Practitioner Family; Visit Provider Nurse Practitioner Family
DX: M25.511 Pain in right shoulder (principal)
CPT/HCPCS: 73030; 96127; 99212

== ENCOUNTER → 2024-10-30 10:42 | Outpatient (BNV) | payer OTHER, SELFPAY | PROVIDERS: PCP Nurse Practitioner Family; Visit Provider Radiology Diagnostic Radiology | DX: M25.511 Pain in right shoulder (principal) | CPT/HCPCS: 73030 ==

== ENCOUNTER 2025-02-11 13:04 | Outpatient (RCR) | payer OTHER, SELFPAY ==
--- NOTE | 2025-01-17 15:13 | MHC.PT.EP ---
[facility] [place] Office [place] Office [place] Office [address] Concepcion Thrasher [address] [phone] F: [phone] F: [phone] F: [phone] F: [phone] Physical Therapy Plan of Care Date of Evaluation: 01/17/25 Date of Surgery: Diagnosis: M25.511 Pain in R shoulder signed by RATNA Womack 10/31/24 Assessment: Pt is a RHD 39 y/o male, referred to PT for treatment of R shoulder pain following onset of sx which began after a lifting injury in the gym during while bench pressing while on duty. 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 Pt notes difficulty raising/lifting arm, inability to perform combined ER/abd throw motion, has poor lifting/reaching behind the back and behind his head. He has poor tolerance for weight-bearing and lying on R side. Pt notes he has never had formal PT for this injury with the exception of being given some resisted band exercises at one time. Pt currently exhibits impaired AROM of the R UE, impaired strength, c/o symptoms of lifting. He notes he has not been able to reach or push open a door with his R UE for some time. He exhibits (+) apprehension test, (+) speeds test (+) Reynolds (+)Empty Can, and weakness of resisted abduction. He would benefit from MRI and/or orthopedic referral to rule out RTC/labral pathology. He has positive speeds test and TTP along distal supraspinatus and biceps long head. Pt would benefit from attending skilled PT services at a frequency of 2x/week x 4 weeks to address impairments in ROM/strength/mobility to regain function. Pt was educated in AAROM exercise and gentle pec stretch in supine post initial evaluation. He was educated re: goals of PT, recommendation from therapist to obtain orthopedic referral>MRI imaging in addition to completion of PT. Pt verbalized understanding post assessment. Frequency and Duration: The patient will be seen 2x/week x 4 weeks Short Term Goals: 1. Pt will demonstrate AAROM flexion of the R shoulder to 130 degrees. 2. Pt will demonstrate AAROM abduction of the R shoulder to 130 degrees. 3. Pt will strength lower trap 4/5. 4. Pt will initiate self care/HEP program. Longterm Goals: 1. AAROM> AROM program MOD I. 2. Demonstrate good lifting techniques/mechanics 3:3 trials. 3. Strength lower trap 5/5. 4. Strength middle trap 5/5. 5. Pt will demonstrate active elevation of R shoulder with sx <3/10 VAS scale. Treatment Plan: Modalities to reduce pain, spasms and effusion. Manual therapy to restore motion and function. Therapeutic exercise to improve strength and flexibility. Neuromuscular re-education for posture and balance. Therapeutic activities to return to functional activities of daily living. Electronically signed by: Piper Garrido,PT, DPT Please sign and return to therapist. Thank you for your referral.
== END 2025-04-23 07:47 | disposition home or self-care (01) ==
LOC: HO.PTS 13:04
PROVIDERS: PCP Nurse Practitioner Family; Visit Provider Nurse Practitioner Family
DX: M25.511 Pain in right shoulder (principal)
CPT/HCPCS: 97110; 97140; 97161

== ENCOUNTER 2025-02-19 13:01 | Outpatient (AMB) | payer OTHER, SELFPAY ==
[2025-02-19 13:08] VITALS: BP 122/80; PULSE 80; O2SAT 98; BMI 27.2
--- NOTE | 2025-02-19 13:08 | MHC.PC.OV ---
Vital Signs 02/19/25 13:08 Height 6 ft 1 in Weight 206 lb BMI 27.2 BP 122/80 Blood Pressure Location Rt brachial Position Sitting Pulse 80 Pulse Source Pulse Oximeter Pulse Oximetry (%) 98 Oxygen Delivery Method Room Air Intake Visit Reasons: PE Allergies No Known Allergies Allergy (Verified 10/30/24 09:53) Medication List - Last Reconciled 02/19/25 by FRANCINE LamarP- escitalopram oxalate (Lexapro) 10 mg PO DAILY prazosin 4 mg PO BEDTIME Tobacco use date assessed: 10/30/24 Dental Screening Dental Screen Date: 10/30/24 HPI PE HPI Details History of Present Illness The patient is a 40-year-old male presenting with a physical examination. He is currently undergoing physical therapy for right shoulder pain, suspected labral tear in his right shoulder, with plans for an MRI to confirm the diagnosis. The therapy is approximately three-quarters complete. The patient is also receiving physical therapy for lower back pain, which has shown improvement with reduced radicular symptoms in the lower extremities. He has been diagnosed with plantar fasciitis in the left foot and has experienced arthralgia in the left toes, for which he previously received cortisone injections. The patient is seeking a new press and blow machine tender following the passing of his previous provider. The patient is under the care of a psychiatrist and psychologist, regularly attending sessions with both a medical provider and a therapist. He denies any suicidal or homicidal ideations and is currently going through a divorce. suspected bilat cubital tunnel, recommend keeping arm straight while sleeping. Carpel tunnel present (wears bilat wrist braces) Health Maintenance Social History - Family status: Currently going through a divorce Review of Systems - Musculoskeletal: Reports right shoulder pain, lower back pain with radicular symptoms, and left foot pain - Psychiatric: Denies suicidal ideation or homicidal ideation -no fevers, chills, fevers, chills, cp, sob, urinary issues, constipation, diarrhea Physical Exam General: Cooperative, healthy appearing, comfortable, no acute distress and well developed Orientation: Patient oriented x3 Limitations: No limitations Head: Normal to inspection Ears: Hearing grossly normal bilaterally Nose: Normal external nose present Face and sinus: Normal facial exam Eyes: Appearance normal, both eyes and all related structures Neck: Normal visual inspection and Yes full ROM Respiratory: Normal respiratory effort and able to speak in complete sentences. Clear to auscultation bilaterally Cardiovascular: Regular rate and rhythm. Normal S1 and S2 GI: Normal to inspection. Soft to palpation and nontender : Testicles without masses/lesions and no hernias appreciated Skin: No rashes or lesions noted Neuro: Patient oriented x3 Extremities: Normal to inspection Results Plan The patient will continue with physical therapy for the right shoulder, and an MRI will be ordered to assess for a labral tear. For the lower back pain, ongoing physical therapy is recommended as symptoms are improving. Regarding the plantar fasciitis and arthralgia, the patient will be referred to a new press and blow machine tender for further management, including potential cortisone injections if deemed necessary. The patient is advised to maintain regular appointments with his psychiatrist and psychologist to support his mental health during his divorce. Discussion Notes I discussed with the patient the plan to continue physical therapy for his right shoulder and the need for an MRI to evaluate the suspected labral tear. We also talked about the improvement in his lower back pain with current therapy and the referral to a new press and blow machine tender for his foot issues. I emphasized the importance of maintaining mental health support during his divorce process. Patient Instructions - Continue physical therapy for your shoulder and back. - Schedule an MRI for your shoulder as discussed. - Follow up with a new press and blow machine tender for your foot pain. - Keep regular appointments with your mental health providers. [facility] Medical History (Updated 02/19/25 @ 14:08 by LOULOU Lamar) Tinnitus Sciatica Lumbar disc herniation Surgical History No pertinent past surgical history Social History Housing: House Patient Tobacco Use Status: Former Tobacco user e-Cigarette/Vaping Use: Never Used service: Yes Current occupational status: employed Current occupation: [employer] Cognitive needs: No Hearing needs: No Vision needs: No Questionnaire Thrive Questionnaire Date Thrive assessed: 10/30/24 I am a: Patient What is your living situation today?: I have a steady place to live Within the past 12 months, did the food you bought not last and you didn't have the money to get more?: Never true Within the past 12 months, did you worry whether your food would run out before you got money to buy more?: Never true Do you have trouble paying for medicines?: No Do you have trouble getting transportation to medical appointments?: No Do you have trouble paying your heating and electricity bill?: No Do you have trouble taking care of your child, family member or friend?: No Do you have trouble with day-to-day activities such as bathing, preparing meals, shopping, managing finances, etc.?: No Are you currently unemployed and looking for a job?: No Are you interested in more education?: No Please select the resources that you would like help with: None Currently or been in a relationship where the following occur: No concerns reported THRIVE Score: 0 PRICE-7 AMB Questionnaire PRICE-7 Date PRICE - 7 assessed: 10/30/24 Source: Developed by Drs. Kavon Feliz, Belen Lopez, Adalid Smith and colleagues, with an educational fred from [employer]. Physical exam (Primary Care) Vital Signs: Last Vital Signs Pulse 80 02/19/25 13:08 BP 122/80 02/19/25 13:08 Pulse Ox 98 02/19/25 13:08 Oxygen Delivery Method Room Air 02/19/25 13:08 BMI result Body Mass Index 27.2 Tobacco/Smoking Status: Tobacco use Status Tobacco use date assessed 10/30/24 02/19/25 13:08 Patient Tobacco Use Status Former Tobacco user 02/19/25 13:08 e-Cigarette/Vaping Use Never Used 02/19/25 13:08 Thrive Assessment: Date of Thrive Assessment Date Thrive assessed 10/30/24 02/19/25 13:08 Currently or been in a relationship where the following occur: No concerns reported Coding Level of Care Code Est Pt Level 3 (46808) Est Pt Prev Care 40-64y(73956) Diagnoses Encounter for routine adult physical exam with abnormal findings Z00.01 Right shoulder pain M25.511 Plantar fasciitis of left foot M72.2 Lumbar disc herniation M51.26 Bilateral hand numbness R20.0 Bilateral carpal tunnel syndrome G56.03 Assessment & Plan Assessment & Plan (1) Encounter for routine adult physical exam with abnormal findings: Code(s): Z00.01 - Encounter for general adult medical examination with abnormal findings Category: Medical (2) Right shoulder pain: Code(s): M25.511 - Pain in right shoulder Category: Medical (3) Plantar fasciitis of left foot: Code(s): M72.2 - Plantar fascial fibromatosis Category: Medical (4) Lumbar disc herniation: Code(s): M51.26 - Other intervertebral disc displacement, lumbar region Category: Medical (5) Bilateral hand numbness: Code(s): R20.0 - Anesthesia of skin Category: Medical (6) Bilateral carpal tunnel syndrome: Code(s): G56.03 - Carpal tunnel syndrome, bilateral upper limbs Category: Medical Plan . Orders: Orders Complete Blood Count Auto Diff Today Z00.00 - Encounter for general adult medical examination without abnormal findings Comprehensive [place]. Panel Fast Today Z00.00 - Encounter for general adult medical examination without abnormal findings Lipid Panel Today Z00.00 - Encounter for general adult medical examination without abnormal findings MR shoulder RT w con Today M25.511 - Pain in right shoulder TSH reflex Free T4 Today Z00.00 - Encounter for general adult medical examination without abnormal findings UA CC w/rflx Micro + Cult Today Z00.00 - Encounter for general adult medical examination without abnormal findings Referrals Podiatry Referral M72.2 - Plantar fascial fibromatosis
== END 2025-02-19 13:59 | disposition home or self-care (01) ==
LOC: HO.HMCC 13:05
PROVIDERS: PCP Nurse Practitioner Family; Visit Provider Nurse Practitioner Family
DX: Z00.01 Encounter for general adult medical examination with abnormal findings (principal); M25.511 Pain in right shoulder; M72.2 Plantar fascial fibromatosis; M51.26 Other intervertebral disc displacement, lumbar region; R20.0 Anesthesia of skin; G56.03 Carpal tunnel syndrome, bilateral upper limbs

== ENCOUNTER → 2025-02-19 13:01 | Outpatient (BNVA) | payer OTHER, SELFPAY | PROVIDERS: PCP Nurse Practitioner Family; Visit Provider Nurse Practitioner Family | DX: Z00.01 Encounter for general adult medical examination with abnormal findings (principal); M25.551 Pain in right hip; M72.2 Plantar fascial fibromatosis; M51.26 Other intervertebral disc displacement, lumbar region; R20.0 Anesthesia of skin; G56.03 Carpal tunnel syndrome, bilateral upper limbs | CPT/HCPCS: 99212 ==

== ENCOUNTER → 2025-04-05 09:41 | Outpatient (BNV) | payer OTHER, SELFPAY | PROVIDERS: PCP Nurse Practitioner Family; Visit Provider Radiology Diagnostic Radiology | DX: M25.511 Pain in right shoulder (principal) | CPT/HCPCS: 73221 ==

== ENCOUNTER 2025-04-05 09:43 | Outpatient (REF) | payer OTHER, SELFPAY ==
--- NOTE | ~2025-04-05 | MR_ITS ---
CLINICAL HISTORY: M25.511 - Pain in right shoulder MR right shoulder Comparison: CR/SR - XR SHOULDER 2 OR MORE VIEWS RIGHT - 10/30/24 10:51 EDT Findings: No fracture or dislocation of the osseous structures. Marrow signal is within normal limits. The acromioclavicular joint is unremarkable. No joint effusion. Small amount of fluid in the subacromial/subdeltoid bursa. There is increased signal in the supraspinatus tendon with partial tear of the bursal surface. No complete tear, retraction or muscular atrophy. The infraspinatus, subscapularis and teres minor muscles and their tendinous insertions are intact. There is increased signal in the inferior labrum with paralabral cyst measuring up to 1.2 cm at the anterior aspect. The biceps tendon and bicipital-labral anchor are normal. The coracoacromial and coracohumeral ligaments are intact. Cutaneous and subcutaneous tissues are normal. The quadrilateral space is unremarkable. Impression: Tear of the inferior labrum with a paralabral cyst. Supraspinatus tendinopathy with partial tear. Small amount of fluid in the subacromial/subdeltoid bursa. This document has been electronically signed by: Eboni Enriquez MD on 04/06/2025 15:40:51
== END 2025-04-05 09:44 | disposition home or self-care (01) ==
LOC: HO.MRI 09:43
PROVIDERS: PCP Nurse Practitioner Family; Visit Provider Nurse Practitioner Family
DX: M25.511 Pain in right shoulder (principal)
CPT/HCPCS: 73221

== ENCOUNTER 2025-05-16 10:44 | Outpatient (AMB) | payer OTHER, SELFPAY ==
--- NOTE | 2025-05-16 10:56 | A.OFFVIS_ITS ---
Vital Signs 05/16/25 11:00 Height 6 ft 1 in Weight 204 lb BMI 26.9 Intake Visit Reasons: New prob - Pain in right shoulder Intake Note: Stephan is a 40 year old man who presents today in office with complaints of right shoulder pain. This started after an incident at the gym involving a bench press exercise around [id number] while on assignment. Recently back in the gym doing negatives with dumbbells, he assumes he re-aggravated or created a new injury. Patient reports his discomfort is in the anterior aspect of the right shoulder. Symptoms include intermittent clicking during shoulder movements and pain that increases with lateral motion of the right arm, specifically noted during lateral raises. Rotating or throw actions of the right arm/shoulder creates a sharp pain. The patient states that he has been to physical therapy in the recent past which gave him a fair amount of relief. He has not had a cortisone injection. 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 Cognitive needs: No Hearing needs: No Vision needs: No Physical Exam Vital Signs: BMI result Body Mass Index 26.9 Const Other: Well-nourished well-developed very friendly male awake alert and oriented x3 in no acute distress Extrem Other: Right shoulder examination shows full range of motion when compared to his left shoulder, 5/5 strength with supraspinatus testing, positive impingement signs, tenderness over his acromioclavicular joint, no instability Results Reviewed Results Reviewed: MRI of the patient's right shoulder shows moderate to severe acromioclavicular joint narrowing, a type 2 acromion, signal change within the supraspinatus tendon most likely due to rotator cuff tendinosis, degenerative fraying of the inferior labrum Assessment & Plan Assessment & Plan (1) Impingement syndrome of right shoulder: Code(s): M75.41 - Impingement syndrome of right shoulder Category: Medical Plan Mr. Cuevas presents with intermittent right shoulder pain due to impingement syndrome. I had a lengthy discussion with the patient regarding the treatment options. We will hold off on a cortisone injection at this time. The do's and don'ts of lifting were discussed at length with the patient. I did give him a prescription to go back to formal physical therapy. He will continue with his activity modifications. He will follow up with me on an as-needed basis should his symptoms not plateau at an unacceptable level. I spent 20 minutes in reviewing the patient's records and imaging studies, seeing the patient and documenting in the medical record. Orders: Orders PT Evaluation and Treatment Today M75.41 - Impingement syndrome of right shoulder Coding Level of Care Code New Pt Level 3 (27534) Complex EM visit Add On G2211 Diagnoses Impingement syndrome of right shoulder M75.41
[2025-05-16 11:00] VITALS: BMI 26.9
== END 2025-05-16 11:31 | disposition home or self-care (01) ==
LOC: HO.HOS 10:45
PROVIDERS: PCP Nurse Practitioner Family; Visit Provider Orthopaedic Surgery
DX: M75.41 Impingement syndrome of right shoulder (principal)
CPT/HCPCS: 99203; G2211

== ENCOUNTER → 2025-05-16 10:44 | Outpatient (BNVA) | payer OTHER, SELFPAY | PROVIDERS: PCP Nurse Practitioner Family; Visit Provider Orthopaedic Surgery | DX: M75.41 Impingement syndrome of right shoulder (principal) | CPT/HCPCS: 99202 ==

== ENCOUNTER 2025-06-27 12:57 | Outpatient (AMB) | payer OTHER, SELFPAY ==
[2025-06-27 13:10] VITALS: BP 124/84; PULSE 62; RESP 16; TEMP 36.6; O2SAT 99; BMI 28.0
--- NOTE | 2025-06-27 13:10 | MHC.PC.OV ---
Vital Signs 06/27/25 13:10 Height 6 ft 1 in Weight 212 lb BMI 28.0 BP 124/84 Blood Pressure Location Lt brachial Position Sitting Respiration 16 Pulse 62 Pulse Source Pulse Oximeter Temp 97.8 F Temp Source Oral Pulse Oximetry (%) 99 Intake Visit Reasons: 4m f/u Office Equipment Technician Required: No Accompanied by: Self / Same As Patient Allergies No Known Allergies Allergy (Verified 05/16/25 11:01) Medication List - Last Reconciled 06/27/25 by FELIPE Lamar- escitalopram oxalate (Lexapro) 10 mg PO DAILY prazosin 4 mg PO BEDTIME Tobacco use date assessed: 06/27/25 Dental Screening Dental Screen Date: 06/27/25 Did you have a dental visit in the last 12 months?: Yes Did you have a dental problem in the last 6 months where you did not have access to dental care?: No Was dental information given to patient?: Patient has dentist HPI 4m f/u HPI Details Chief Complaint The patient's chief complaint is left lower back pain that radiates into his left buttock. History of Present Illness The patient is a 40-year-old male presenting for follow-up for stress and anxiety, and evaluation of worsening left lower back pain. He is currently seven months into a divorce proceeding and denies any suicidal or homicidal ideation. The patient complains of ongoing left lower back pain that radiates to his left buttock, which has been worsening despite completing 16 weeks of physical therapy. Originally injured performing a upper torso twisting motion while at the gym. He reports the pain as excruciating when he bends over, with some relief when he bends his knees while bending over. He has a history of severe lumbar disc herniation with right-sided radiculopathy, which has since improved, and has previously found dry needling to be tremendously helpful for his back pain. Social History - The patient is currently going through a divorce, which has been ongoing for about seven months. - He reports a civil relationship with his soon-to-be ex-. - He has two children. - He has retained his own ict support engineer for the divorce proceedings. - no s/s of cauda equina Health Maintenance Review of Systems - Psychiatric: Reports stress and anxiety. Denies suicidal or homicidal ideation. - Musculoskeletal: Reports ongoing left lower back pain that is worsening. - Neurological: Reports pain radiating into his left buttock. Physical Exam General: Cooperative, healthy appearing, comfortable, no acute distress and well developed Orientation: Patient oriented x3 Limitations: No limitations Head: Normal to inspection Ears: Hearing grossly normal bilaterally Nose: Normal external nose present Face and sinus: Normal facial exam Eyes: Appearance normal, both eyes and all related structures Neck: Normal visual inspection and Yes full ROM Respiratory: Normal respiratory effort and able to speak in complete sentences. Clear to auscultation bilaterally Cardiovascular: Regular rate and rhythm. Normal S1 and S2 GI: Normal to inspection. Soft to palpation and nontender Skin: No rashes or lesions noted Neuro: Patient oriented x3 Extremities: Partial positive straight leg raises on the left. Positive patellar reflex, positive dorsalis pedis. Able to heel and toe walk without difficulty. Normal to inspection Results Plan 1. Low Back Pain With Left-Sided Radiculopathy The patient's symptoms of left lower back pain radiating to the buttock, which are worsening despite 16 weeks of physical therapy, are concerning for radiculopathy, possibly related to disc herniation given his significant past history. An MRI of the lumbar spine will be ordered for further assessment. 2. Anxiety And Stress The patient is experiencing situational stress and anxiety related to his ongoing divorce. He denies suicidal or homicidal ideations, and no new interventions were discussed at this time. Discussion Notes I discussed with the patient that given his symptoms of worsening left lower back pain radiating to his buttock, and his significant history of a lumbar disc herniation, I suspect a radiculopathy. Since he has already completed a 16-week course of physical therapy without adequate relief, I recommended an MRI to further assess the cause of his pain. Patient Instructions - We will order an MRI of your lower back to get a better look at what is causing your pain. - Be careful when bending over, as this seems to make your pain much worse. Try to bend your knees when you bend forward to lessen the pain. - Continue to monitor your stress and anxiety. 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 1. Little interest or pleasure in doing things: several days 2. Feeling down, depressed, or hopeless: several days 3. Trouble falling or staying asleep, or sleeping too much: more than half the days 4. Feeling tired or having little energy: several days 5. Poor appetite or overeating: not at all 6. Feeling bad about yourself - or that you are a failure or have let yourself or your family down: not at all 7. Trouble concentrating on things, such as reading the newspaper or watching television: several days 8. Moving or speaking so slowly that other people could have noticed. Or the opposite - being so fidgety or restless that you have been moving around a lot more than usual: several days 9. Thoughts that you would be better off or of hurting yourself in some way: not at all Total score: 7 Depression Screening Interpretation: Positive Depression Screening Done: Yes 27493 - PHQ-9 Billing: Yes Source: Developed by Drs. Kavon Feliz, Belen Lopez, Adalid Smith and colleagues, with an educational fred from [employer]. Thrive Questionnaire Date Thrive assessed: 10/30/24 I am a: Patient What is your living situation today?: I have a steady place to live Within the past 12 months, did the food you bought not last and you didn't have the money to get more?: Never true Within the past 12 months, did you worry whether your food would run out before you got money to buy more?: Never true Do you have trouble paying for medicines?: No Do you have trouble getting transportation to medical appointments?: No Do you have trouble paying your heating and electricity bill?: No Do you have trouble taking care of your child, family member or friend?: No Do you have trouble with day-to-day activities such as bathing, preparing meals, shopping, managing finances, etc.?: No Are you currently unemployed and looking for a job?: No Are you interested in more education?: No Please select the resources that you would like help with: None Currently or been in a relationship where the following occur: No concerns reported THRIVE Score: 0 PRICE-7 AMB Questionnaire PRICE-7 Date PRICE - 7 assessed: 06/27/25 Feeling nervous, anxious, or on edge: 0 = Not at all Not being able to stop or control worryin = Not at all Worrying too much about different things: 0 = Not at all Trouble relaxin = Not at all Being so restless that it is hard to sit still: 0 = Not at all Becoming easily annoyed or irritable: 0 = Not at all Feeling afraid as if something awful might happen: 0 = Not at all Total PRICE-7 score (0-4 normal; 5-9 mild; 10-14 moderate; 15-21 severe): 0 Source: Developed by Drs. Kavon Feliz, Belen Lopez, Adalid Smith and colleagues, with an educational fred from [employer]. PRICE-7 Assessment Billing PRICE-7 Assessment Tool: PRICE-7 Assessment 69287 Physical exam (Primary Care) Vital Signs: Last Vital Signs Temp 97.8 F 06/27/25 13:10 Pulse 62 06/27/25 13:10 Resp 16 06/27/25 13:10 BP 124/84 06/27/25 13:10 Pulse Ox 99 06/27/25 13:10 BMI result Body Mass Index 28.0 Tobacco/Smoking Status: Tobacco use Status Tobacco use date assessed 06/27/25 06/27/25 13:19 Patient Tobacco Use Status Former Tobacco user 06/27/25 13:11 e-Cigarette/Vaping Use Never Used 06/27/25 13:11 PHQ-9: PHQ-9 Score PHQ-9: Total score 7 06/27/25 13:19 Depression Screening Interpretation: Positive Thrive Assessment: Date of Thrive Assessment Date Thrive assessed 10/30/24 06/27/25 13:11 Currently or been in a relationship where the following occur: No concerns reported Coding Level of Care Code Est Pt Level 3 (10588) Diagnoses Anxiety F41.9 High perceived stress F43.9 Chronic radicular pain of lower back M54.16; G89.29 Additional Codes PRICE-7 Assessment Billing - PRICE-7 Assessment Tool: PRICE-7 Assessment 61025 ([id number]) PHQ-9 - 78573 - PHQ-9 Billing: Yes ([id number]) Assessment & Plan Assessment & Plan (1) Anxiety: Code(s): F41.9 - Anxiety disorder, unspecified Category: Medical (2) High perceived stress: Code(s): F43.9 - Reaction to severe stress, unspecified Category: Medical (3) Chronic radicular pain of lower back: Code(s): M54.16 - Radiculopathy, lumbar region; G89.29 - Other chronic pain Category: Medical Plan . Orders: Orders MR lumbar spine wo con Today G89.29 - Other chronic pain, M54.16 - Radiculopathy, lumbar region
== END 2025-06-27 15:14 | disposition home or self-care (01) ==
LOC: HO.HMCC 12:58
PROVIDERS: PCP Nurse Practitioner Family; Visit Provider Nurse Practitioner Family
DX: F41.9 Anxiety disorder, unspecified (principal); F43.9 Reaction to severe stress, unspecified; M54.16 Radiculopathy, lumbar region; G89.29 Other chronic pain

== ENCOUNTER → 2025-06-27 12:57 | Outpatient (BNVA) | payer OTHER, SELFPAY | PROVIDERS: PCP Nurse Practitioner Family; Visit Provider Nurse Practitioner Family | DX: F41.9 Anxiety disorder, unspecified (principal); F43.9 Reaction to severe stress, unspecified; M54.16 Radiculopathy, lumbar region; G89.29 Other chronic pain | CPT/HCPCS: 96127; 99212 ==

== ENCOUNTER 2025-07-22 06:39 | Outpatient (AMB) | payer OTHER, SELFPAY ==
--- OUTSIDE RECORDS SUMMARY | 2025-07-22 06:41 | XMS_ITS | Continuity of Care Document ---
Author Name [facility] Organization DOD-[facility] Care Team Providers Care Transformation Consultant Name Role Phone [facility] Unavailable Unavailable Problems [...] OCCUPATIONAL DISEASE (INITIAL POST-DEPLOYMENT ASSESSMENT: DOCUMENTED ON [id number]): No concerns, see below. DoD joint pain, [...] (POST-DEPLOYMEN T EXAMINATION): DHRA#2 following deployment to [facility]. Member has mentioned no complaints or [...] About Inadequate Physical Activity Inactive Condition DoD Allergies, Adverse Reactions, Alerts Combined list of allergies from Department of Defense and Veterans Affairs facilities. It does not include entries that were removed or entered in error. Substance Category Reaction Severity Reaction type Status Date Reported Comments Source NO OUTPUT FOR NCID [id number] Drug allergy (disorder) active 05/07/2008 [facility] Immunizations Combined list of available immunizations from the Department of Defense and Veterans Affairs facilities. 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 Status Comments Source SARS-COV-2 (COVID-19) vaccine, mRNA, spike protein, LNP, preservative free, 30 mcg/0.3mL dose 3 2021 SEGUN FRANCISCO V [id number] 208 [employer] (PFR) complet ed SARS-COV- 2 (COVID-19 ) vaccine, mRNA, spike protein, LNP, preservat marely free, 30 mcg/0.3mL dose DoD anthrax vaccine 7 2020 [id number] 24 [facility] ([facility]) complet ed anthrax vaccine DoD Influenza, injectable, quadrivalent, preservative free 1 2020 [id number] 150 [facility] (SKB) complet ed Influenza , injectabl e, quadrival ent, preservat marely free DoD SARS-COV-2 (COVID-19) vaccine, mRNA, spike protein, LNP, preservative free, 30 mcg/0.3mL dose 2 2020 JOSE MARTIN DOWELL [id number] 208 [employer] (PFR) complet ed SARS-COV- 2 (COVID-19 ) vaccine, mRNA, spike protein, LNP, preservat marely free, 30 mcg/0.3mL dose DoD SARS-COV-2 (COVID-19) vaccine, mRNA, spike protein, LNP, preservative free, 30 mcg/0.3mL dose 1 2020 [id number] 208 [employer] (PFR) complet ed SARS-COV- 2 (COVID-19 ) vaccine, mRNA, spike protein, LNP, preservat marely free, 30 mcg/0.3mL dose DoD typhoid Vi capsular polysaccharid e vaccine 4 2019 [id number] 101 Sanofi Pasteur (PMC) complet ed typhoid Vi capsular polysacch aride vaccine DoD meningococcal polysaccharid e (groups A, C, Y and W-135) diphtheria toxoid conjugate vaccine (MCV4P) 3 2019 [id number] 114 Sanofi Pasteur (PMC) complet ed meningoco ccal polysacch aride (groups A, C, Y and W-135) diphtheri a toxoid conjugate vaccine (MCV4P) DoD anthrax vaccine 7 2019 [id number] 24 [facility] ([facility]) complet ed anthrax vaccine DoD Influenza, injectable, quadrivalent, preservative free 1 2019 [id number] 150 [employer] (SEQ) complet ed Influenza , injectabl e, quadrival ent, preservat marely free DoD Pakistani Encephalitis vaccine for intramuscular administratio n 3 2018 [id number] 134 Valneva (SUGEY) complet ed Pakistani Encephali tis vaccine for intramusc ular administr ation DoD Influenza, injectable, quadrivalent, preservative free 1 2018 [id number] 520 150 [employer] (SEQ) complet ed Influenza , injectabl e, quadrival ent, preservat marely free DoD Pakistani Encephalitis vaccine for intramuscular administratio n 2 2017 [id number] 134 Valneva (SUGEY) complet ed Pakistani Encephali tis vaccine for intramusc ular administr ation DoD Pakistani Encephalitis vaccine for intramuscular administratio n 1 2017 [id number] 134 Valneva (SUGEY) complet ed Pakistani Encephali tis vaccine for intramusc ular administr ation DoD Influenza, injectable, quadrivalent, preservative free 17 2017 [id number] 150 [employer]Kline (SKB) complet ed Influenza , injectabl e, quadrival ent, preservat marely free DoD Influenza, injectable, Madin Noemi Canine Kidney, preservative free, quadrivalent 16 2016 [id number] 171 [employer] (SEQ) comple t ed Influenza , injectabl e, Madin Lolita Canine Kidney, preservat marely free, quadrival ent DoD Influenza, seasonal, injectable, preservative free 15 2015 [id number] 140 Se[employer] (SEQ) comple t ed Influenza , seasonal, injectabl e, preservat marely free DoD influenza, live, intranasal, quadrivalent 14 2014 [id number] 149 [employer], [employer]. (MED) complet ed influenza , live, intranasa l, quadrival ent DoD yellow fever vaccine 1 2013 [id number] 37 Sanofi Pasteur (PMC) complet ed yellow fever vaccine DoD typhoid Vi capsular polysaccharid e vaccine 3 2013 [id number] 101 Sanofi Pasteur (PMC) complet ed typhoid Vi capsular polysacch aride vaccine DoD meningococcal polysaccharid e (groups A, C, Y and W-135) diphtheria toxoid conjugate vaccine (MCV4P) 2 2013 [id number] 114 Sanofi Pasteur (PMC) complet ed meningoco ccal polysacch aride (groups A, C, Y and W-135) diphtheri a toxoid conjugate vaccine (MCV4P) DoD Influenza, seasonal, injectable, preservative free 13 2013 [id number] 140 Novartis Sifteo. (NOV) complet ed Influenza , seasonal, injectabl e, preservat marely free DoD measles, mumps and rubella virus vaccine 1 2013 [id number] 03 Merck (MSD) complet ed measles, mumps and rubella virus vaccine DoD anthrax vaccine 6 2013 [id number] 24 [facility]) complet ed anthrax vaccine DoD influenza, live, intranasal, quadrivalent 12 2012 [id number] 149 [employer] (MED) complet ed influenza , live, intranasa l, quadrival ent DoD anthrax vaccine 5 2011 [id number] 24 [facility] ([facility]) complet ed anthrax vaccine DoD typhoid Vi capsular polysaccharid e vaccine 2 2011 [id number] 101 Sanofi Pasteur (PMC) complet ed typhoid Vi capsular polysacch aride vaccine DoD influenza virus vaccine, live, attenuated, for intranasal use 11 2011 [id number] 111 [employer] (MED) complet ed influenza virus vaccine, live, attenuate d, for intranasa l use DoD tetanus toxoid, reduced diphtheria toxoid, and acellular pertu is vaccine, adsorbed 1 2011 [id number] 115 [facility] (SKB) complet ed tetanus toxoid, reduced diphtheri a toxoid, and acellular pertussis vaccine, adsorbed DoD influenza virus vaccine, live, attenuated, for intranasal use 1 2010 [id number] 111 [employer] Inc[employer] (MED) complet ed influenza virus vaccine, live, attenuate d, for intranasa l use DoD influenza virus vaccine, live, attenuated, for intranasal use 1 2009 [id number] 111 [employer] (MED) complet ed influenza virus vaccine, live, attenuate d, for intranasa l use [facility] Novel influenza-H1N 1-09, injectable 1 2008 [id number] 127 Novartis JazzD [employer] Wandera. (NOV) complet ed Novel influenza -[id number], injectabl e DoD influenza virus vaccine, live, attenuated, for intranasal use 1 2008 [id number] 111 [employer] ([facility]) complet ed influenza virus vaccine, live, attenuate d, for intranasa l use DoD anthrax vaccine 5 2008 [id number] 24 [employer] (MIP) complet ed anthrax vaccine DoD influenza virus vaccine, live, attenuated, for intranasal use 1 2007 [id number] 111 [employer], [facility]. ([facility]) complet ed influenza virus vaccine, live, attenuate d, for intranasa l use DoD anthrax vaccine 4 2007 [id number] 24 [employer] (MIP) complet ed anthrax vaccine DoD anthrax vaccine 3 2007 [id number] 24 [employer] (MIP) complet ed anthrax vaccine DoD anthrax vaccine 2 2007 [id number] 24 [employer] (MIP) complet ed anthrax vaccine DoD anthrax vaccine 1 2006 [id number] 24 [employer] (MIP) complet ed anthrax vaccine DoD vaccinia (smallpox) vaccine 1 2006 [id number] 75 Valerie ([facility]) complet ed vaccinia (smallpox ) vaccine DoD typhoid Vi capsular polysaccharid e vaccine 1 2006 [id number] 101 Sanofi Pasteur ([facility]) complet ed typhoid Vi capsular polysacch aride vaccine DoD influenza virus vaccine, live, attenuated, for intranasal use 1 2006 [id number] 111 [employer] ([facility]) complet ed influenza virus vaccine, live, attenuate d, for intranasa l use DoD influenza virus vaccine, split virus (incl. purified surface antigen)-reti red CODE 1 2005 [id number] 15 Sanofi Pasteur ([facility]) complet ed influenza virus vaccine, split virus (incl. purified surface antigen)- retired CODE DoD influenza virus vaccine, split virus (incl. purified surface antigen)-reti red CODE 1 2004 [id number] 15 Sanofi Pasteur ([facility]) complet ed influenza virus vaccine, split virus (incl. purified surface antigen)- retired CODE DoD influenza virus vaccine, whole virus 1 2004 [id number] 16 Sanofi Pasteur ([facility]) complet ed influenza virus vaccine, whole virus DoD influenza virus vaccine, whole virus 0 2004 [id number] 16 Sanofi Pasteur (PMC) complet ed influenza virus vaccine, whole virus DoD influenza virus vaccine, whole virus 0 2002 [id number] 16 [employer] ls (PWJ) complet ed influenza virus vaccine, whole virus DoD hepatitis A and hepatitis B vaccine 3 2002 [id number] 104 SmithKline (SKB) complet ed hepatitis A and hepatitis B vaccine DoD hepatitis A and hepatitis B vaccine 2 2002 [id number] 6 104 [employer]line (SKB) complet ed hepatitis A and hepatitis B vaccine DoD measles, mumps and rubella virus vaccine 0 2002 [id number] 03 Merck (MSD) complet ed measles, mumps and rubella virus vaccine DoD varicella virus vaccine 1 2002 21 () Not Given varicella virus vaccine DoD hepatitis A and hepatitis B vaccine 1 2002 [id number] 6 104 [employer] (SKB) complet ed hepatitis A and hepatitis B vaccine DoD tetanus and diphtheria toxoids, adsorbed, preservative free, for adult use (2 Lf of tetanus toxoid and 2 Lf of diphtheria toxoid) 0 2002 [id number] 09 Sanofi Pasteur (PMC) complet ed tetanus and diphtheri a toxoids, adsorbed, preservat marely free, for adult use (2 Lf of tetanus toxoid and 2 Lf of diphtheri a toxoid) DoD poliovirus vaccine, inactivated 0 2002 [id number] 10 Sanofi Pasteur (PMC) complet ed polioviru s vaccine, inactivat ed DoD influenza virus vaccine, whole virus 0 2002 [id number] 16 Sanofi Pasteur (PMC) complet ed influenza virus vaccine, whole virus DoD meningococcal polysaccharid e vaccine (MPSV4) 0 2002 [id number] 32 Sanofi Pasteur (PMC) complet ed meningoco ccal polysacch aride vaccine (MPSV4) DoD Encounters Combined list of: 1) Encounters from Department of Veterans Affairs facilities going backup to the last 18 months, not all VA inpatient encounters are included; 2) Encounters from the Department of Defense facilities going backup to 280 months. Location Location Details Encounter Type Encounter Number Reason For Visit Attending Provider ADM Date DC Date Status Disposition Source [facility]) OUTPATIENT [id number] MARGARETH Wallace 09/01 Released w/o Limitations [facility] [place] [employer]([facility]) OUTPATIENT [id number] MONICA RICHARDS 09/16 [facility]ased w/o Limitations [facility] [employer] [facility] [employer] [employer]([facility]) OUTPATIENT [id number] f/u lt foot injury 07/18 Released with Work/Duty Limitations [employer](F PC [place]) [employer] [employer]([facility]M [place]) OUTPATIENT [id number] pre-dep loyment ALEK DYE 08/11 Released w/o Limitations [employer] [place]) [employer]-TERM [place]) OUTPATIENT [id number] ALEK Hutson 09/01 Released w/o Limitations [facility](F [facility] [place]) [facility](Fli t Medicine [place]) OUTPATIENT [id number] Incenti ve Flight JENNIFER, BRENNEN S 11/08 Released w/o Limitations [facility](F light Medicin e [place]) [facility] OUTPATIENT [id number] [facility] color vision test HAILEE BOOTH GARCIA 05/07 Released w/o Limitations [employer] [facility]) [facility] [facility] Emergency ) OUTPATIENT [id number] MITCHEL FRAZIER 05/21 Released w/o Limitations [employer](O AB Emergen cy) [facility]) OUTPATIENT [id number] SERAFIN AGARWAL 10/15 Released w/o Limitations [employer]([facility]) [employer](War rior Operation al Med A-AD) OUTPATIENT [id number] [place] RIN AMBRIZ 01/01 Released w/o Limitations [employer](W arrior Operati onal Med A-AD) [facility] [place]PATIENT [id number] [place] JAMMIE Murillo 01/01 Released w/o Limitations [facility]) [facility]([facility]) OUTPATIENT [id number] pha THEODORE LUNSFORD 08/28 Released w/o Limitations [employer]([facility]) [facility]([facility]) TELE CONSULT [id number] 72hr/NO ROUTINE S/Left foot pain NADIRA MANZANARES 09/18 [employer]([facility]) [facility]) OUTPATIENT [id number] pain in foot CARROL GRANT A 09/25 Released w/o Limitations [facility]) [facility] OUTPATIENT [id number] PHASE OH...ASHANTI MCDERMOTT NMI 10/09 Released with Work/Duty Limitations [facility]_Conta ct) [facility]) OUTPATIENT [id number] Annual Audiogr am CRUZITO COWAN 10/09 Released w/o Limitations [facility]) [facility](Opt [facility]metry Clinic) OUTPATIENT [id number] eye exam LEANNE COLLIER 11/03 Released w/o Limitations [facility](O ptometr y Clinic) [facility]) OUTPATIENT [id number] Retrain CHRISSY Elizabeth 03/10 Released w/o Limitations [facility]) [facility] [employer]([facility]) OUTPATIENT [id number] BURTON STEVENS 08/25 Released w/o Limitations [facility]) [facility]([facility]) OUTPATIENT [id number] injured right foot playing basketb all GREEN INDIGO S 09/16 Released with Work/Duty Limitations [facility]) [facility] [employer]([facility]) OUTPATIENT [id number] Annual Audiogr am CHRISSY BERGMAN 10/19 Released w/o Limitations [facility]) [facility]([facility]) OUTPATIENT [id number] r/mid foot/ still hurting when putting pressur e on CARROL GRANT Alethea 10/21 Released with Work/Duty Limitations [facility] [facility]) [facility](Opt ometry Clinic) OUTPATIENT [id number] routine eye exam and renewal of contact s LEANNE COLLIER 12/15 Released w/o Limitations [facility](O ptometr y Clinic) [facility] [facility](PHA Cell) OUTPATIENT [id number] pha-mos YOVANNY NORRIS 09/02 Released w/o Limitations [employer] [facility] [place] Cell) [facility](Opt ometry Clinic) OUTPATIENT [id number] eye exam, contact s NONA LUCIANO 01/16 Released w/o Limitations [employer](O ptometr y Clinic) [employer]([facility] OUTPATIENT [id number] discuss changes in mole on lower right jaw YOVANNY NORRIS 03/28 Released w/o Limitations [facility](F [facility]) [facility](Psy chology Clinic) OUTPATIENT [id number] LISA WHITE 05/30 Released w/o Limitations [employer] [facility](P sycholo gy Clinic) [employer]([facility]) OUTPATIENT [id number] pre deploym ent YOVANNY NORRIS 06/15 Released w/o Limitations [employer] [facility]) [facility] OUTPATIENT [id number] Theater Provider 08/23 Released w/o Limitations [facility] OUTPATIENT [id number] Theater Provider 12/31 Released w/o Limitations Theater Fac[facility] y [facility](Opt ometry Clinic) OUTPATIENT [id number] Notes Entered by: JOVITA HOLDER 09 Jan 2013 1338 ------- ------- ------- ------- -- annual NONA LUCIANO 01/09 Released w/o Limitations [facility](O ptometr y Clinic) [employer](PHA Cell) OUTPATIENT [id number] PHA YOVANNY NORRIS 01/12 Released w/o Limitations [employer] [facility] [place] Cell) [employer]([facility] OUTPATIENT [id number] post deploym ent ROYAL CRAWFORD E 04/12 Released w/o Limitations [employer](D eployme nt Health Assessm ent) [employer](Pub [facility]) OUTPATIENT [id number] audiogr am ROYAL CRAWFORD E 05/01 Released w/o Limitations [facility](P ublic Health Clinic) [facility]([facility]) TELE CONSULT [id number] Notes Entered by: ROYAL CRAWFORD 14 Sep 2013 1444 ------- ------- ------- ------- -- Malaria meds ROYAL CRAWFORD 09/14 [employer](D eployme nt Health Assessm ent) [employer](PHA Cell) OUTPATIENT [id number] YOVANNY Ball 12/18 Released w/o Limitations [employer]([facility] [place] Cell) [facility] [facility](Fli ght Medicine Clinic) OUTPATIENT [id number] [facility] MIKAYLA SANCHEZ 01/08 Released w/o Limitations [facility] [facility](F light Medicin e Clinic) [employer]) OUTPATIENT [id number] [facility] SRINIVAS ANDRADE 02/18 Released w/o Limitations [employer](D eployme nt Health Assessm ent) [facility](Opt ometry Clinic) OUTPATIENT [id number] last minute deploye BRITNI Anders 02/20 Released w/o Limitations [facility](O ptometr y Clinic) [facility](Psy chology Clinic) OUTPATIENT [id number] Notes Entered by: LALA DONALDSON 21 Feb 2014 0809 ------- ------- ------- ------- -- LISA WHITE 02/21 Released w/o Limitations [facility](P sycholo gy Clinic) [facility] OUTPATIENT [id number] Theater Provider 05/28 Released w/o Limitations Theater Facilit y [employer](Dep [facility] Health Assessmen t) TELE CONSULT [id number] Notes Entered by: KENDALL 21 Aug 2014 1335 ------- ------- ------- ------- -- Malaria MedMELQUIADES Hicks 08/21 [employer](D eployme nt Health Assessm ent) [employer](Dep [facility] Health [facility]essmen t) OUTPATIENT [id number] MELQUIADES JIMENES 09/10 Released w/o Limitations [employer] [facility](D eployme nt Health Assessm ent) [employer](PHA Cell) OUTPATIENT [id number] PHA RAMONA NAVARRO 09/10 Released w/o Limitations [employer]([facility] [place] Cell) [employer] [facility] [employer]([facility]) OUTPATIENT [id number] back pain RAMONA NAVARRO 09/13 Released w/o Limitations [employer]([facility]) [facility]) TELE CONSULT [id number] Notes Entered by: ZAINAB NAVARRO 16 Sep 2014 0825 ------- ------- ------- ------- -- PT REFERAL PAYAM ANTONY 09/16 [facility]) [facility](Opt ometry Clinic) OUTPATIENT [id number] CRS Workup/ bring paperwo rk/no contact LAURA Santos 01/28 Released w/o Limitations [facility](O ptometr y Clinic) [facility](Re fractive [facility] [place]) OUTPATIENT [id number] CRS PRE OP INDIGO WALTON 03/07 Released w/o Limitations [facility]( Refract marely Surgery Center) [facility](Re [facility] [place]) OUTPATIENT [id number] CONSENT ESTEFANI DOMÍNGUEZ 03/17 Released with Work/Duty Limitations [facility]( Refract marely Surgery Center) [facility](Re [facility]ive [facility] [place]) OUTPATIENT [id number] PRK ESTEFANI FULLER Wallace 03/20 Released with Work/Duty Limitations [facility]( Refract marely Surgery Center) [facility](Re fractive Surgery Center) OUTPATIENT [id number] 5 DAY PO COLGAININDIGO 03/24 Released with Work/Duty Limitations [facility]( Refract marely Surgery Center) [facility](Re fractive Surgery Center) OUTPATIENT [id number] Notes Entered by: ANTONIO ROSALES 26 Mar 2015 0933 ------- ------- ------- ------- -- Eye discomf ort after PRK COLGAININDIGO 03/26 Released w/o Limitations [facility]( Refract marely Surgery Center) [facility] Medical [facility](Opt ometry Clinic) OUTPATIENT [id number] S/p PRK bandage contact ARANMOLATE , LAURA A 03/28 Released w/o Limitations [facility](O ptometr y Clinic) [facility] Medical [facility](Opt ometry Clinic) OUTPATIENT [id number] s/p prk ARANMOLATE , LAURA A 05/07 Released w/o Limitations [facility](O ptometr y Clinic) [facility] Medical [facility](Opt ometry Clinic) OUTPATIENT [id number] 2 mos s/p PRK ARANMOLATE , LAURA A 06/03 Released w/o Limitations [facility](O ptometr y Clinic) [facility](Opt ometry Clinic) OUTPATIENT [id number] s/p prk 3 mos/res c from ARANMOLATE , LAURA A 07/09 Released w/o Limitations [facility](O ptometr y Clinic) [facility](Dep loyment Health Assessmen t) OUTPATIENT [id number] DHAMELQUIADES UPTON 09/03 Released w/o Limitations [facility](D eployme Health Assessm ent) [facility](PHA Cell) OUTPATIENT [id number] Notes Entered by: JUANITA COONEY 17 Sep 2015 1030 ------- ------- ------- ------- -- PHA Record Review RAMONA NAVARRO 09/17 Released w/o Limitations [employer] [place] Cell) [facility](Opt ometry Clinic) OUTPATIENT [id number] s/p prk LAURA YARBROUGH 10/26 Released w/o Limitations [employer](O ptometr y Clinic) [facility] [facility](Pub [facility]) OUTPATIENT [id number] Notes Entered by: EVELYN MURDOCK 10 Dec 2015 1411 ------- ------- ------- ------- -- Occupat ional Audiogr am MELQUIADES DOLL 12/09 Released w/o Limitations [facility](P ublic Health Clinic) [employer](Tao er [facility] Team [place]) OUTPATIENT [id number] hurt lower back lastnig ht at PT, causing pain MELQUIADES DOLL 12/29 Released w/o Limitations [employer](D over [facility] Team [place] s) [employer] [facility] [employer](Phy sical Therapy Clinic) OUTPATIENT [id number] Muscle spasm of back TONY CATHERINE 12/31 Released w/o Limitations [facility](P hysical Therapy Clinic) [employer] [facility] [employer](Phy sical Therapy Clinic) OUTPATIENT [id number] TONY CATHERINE 01/13 Released w/o Limitations [employer] [facility](P hysical Therapy Clinic) [employer]([facility]) OUTPATIENT [id number] ERLIN SHEPHERD 09/24 Released w/o Limitations [employer] [facility] ) [employer](PHA Cell) OUTPATIENT [id number] Notes Entered by: Obed RENEE 24 Sep 2016 1423 ------- ------- ------- ------- -- KALIE NEELY 09/24 Released w/o Limitations [employer]([facility] [place] Cell) [employer] [facility](Opt ometry Clinic) OUTPATIENT [id number] 1 year s/p MERCEDEZ Santacruz 10/20 Released w/o Limitations [employer] [facility](O ptometr y Clinic) [employer]([facility] [place]) OUTPATIENT [id number] Notes Entered by: NICHOLAS BLACK 08 Nov 2016 1449 ------- ------- ------- ------- -- Occupat ional Audiogr am MARIBEL SNYDER 11/08 Released w/o Limitations [facility]) [facility] [facility] [place]) OUTPATIENT [id number] Notes Entered by: RIRI PASTOR 31 Oct 2017 0753 ------- ------- ------- ------- -- Annual Audiogr am RIRI PASTOR 10/31 Released w/o Limitations [facility]) [facility] Medical) OUTPATIENT [id number] ERLIN HUTTON 02/02 Released w/o Limitations [facility] Medical ) [facility] Medical) OUTPATIENT [id number] VIRTUAL MIKE: PHA RR (DO NOT CALL PT) NORMA RADFORD 03/02 Released w/o Limitations [facility] Medical ) [facility] Medical) TELE CONSULT [id number] Notes Entered by: MAURO WALLACE 15 May 2018 1522 ------- ------- ------- ------- -- [facility] OS MAURO Lopez 05/15 Referred for Appointment [facility] Medical ) [place](K a [facility]) OUTPATIENT [id number] LOWER BACK PAIN (02/21) X 2 DAY CONSTANZA RICHARDEL Chad 11/13 Released w/o Limitations [place] ([facility]) [place]([facility]) OUTPATIENT [id number] Low back pain ERLIN LUNDBERG 12/06 Released with Work/Duty Limitations [place] ([facility]) [facility]) TELE CONSULT [id number] Notes Entered by: BELA JEONG 10 Jan 2019 1010 ------- ------- ------- ------- -- Update profile LUTHER FLOOD 01/10 Other Not Elsewhere Classified [facility] ([facility]) [facility]) OUTPATIENT [id number] Notes Entered by: FLAKO RAMIREZ 15 Jan 2019 1028 ------- ------- ------- ------- -- HECTOR VELEZ 01/15 Released w/o Limitations [facility] ([facility]) [facility]) OUTPATIENT [id number] LBP ERLIN LUNDBERG 01/17 Released with Work/Duty Limitations [facility] ([facility]) [facility]) OUTPATIENT [id number] Audiogr am KATHLEEN MATSON 01/18 Released w/o Limitations [facility] ( [facility]) [facility]) OUTPATIENT [id number] LBP ERLIN LUNDBERG 02/26 Released w/o Limitations [facility] ([facility]) [facility]) OUTPATIENT [id number] WING PEREZ 03/22 Released w/o Limitations [facility] ([facility]) [facility]) OUTPATIENT [id number] f/u ERLIN LUNDBERG 04/09 Released w/o Limitations [facility] ([facility]) [facility]) OUTPATIENT [id number] Notes Entered by: Sridhar LUDWIG 04 Jun 2019 0800 ------- ------- ------- ------- -- [facility] PHA/CHERI Rust 06/03 Released w/o Limitations [place]) [place]([facility]) OUTPATIENT [id number] PT REPORTS PAIN IN BASE OF NECK/LI MITED RANGE OF MOTION FLAQUITO EDGAR 06/27 Released w/o Limitations [place] ([facility]) [place]([facility] A Team) OUTPATIENT [id number] Notes Entered by: BELA JEONG 28 Jun 2019 1531 ------- ------- ------- ------- -- Race on face ANA PAULA RUBIO 06/28 Released w/o Limitations [facility] ([facility] A [facility]) [place] D Team) OUTPATIENT [id number] TWEAKED LT SIDE OF BACK; SHARP PX FROM CYATIC; NEW ISSUE ON LT SIDE CHERI RICHARD 04/16 Released w/o Limitations [facility] ([facility] D Team) [facility] Chiroprac tic Clinic) OUTPATIENT [id number] [facility] [phone] MONICA ERWIN 04/23 Released w/o Limitations [facility] ([facility]) [facility] Chiroprac tic Clinic) TELE CONSULT [id number] Notes Entered by: MONICA ERWIN 29 Apr 2020 1457 ------- ------- ------- ------- -- To discuss TENS unit MONICA ERWIN 04/29 [facility] ([facility]) [facility] D Team) TELE CONSULT [id number] Notes Entered by: FLAKO RAMIREZ 05 May 2020 0835 ------- ------- ------- ------- -- MEDICAT ION REFILL CHERI MENG 05/04 Medication Refill Forwarded [facility] ([facility] D Team) [facility] Chiroprac tic Clinic) TELE CONSULT [id number] Notes Entered by: MONICA ERWIN 06 May 2020 0821 ------- ------- ------- ------- -- To discuss MRI results MONICA ERWIN 05/05 [place] ([facility] Chiropr actic Clinic) [place](Taye gabriel [facility] D Team) TELE CONSULT [id number] Notes Entered by: HORTENCIA BUSTAMANTE 13 May 2020 0912 ------- ------- ------- ------- -- [phone]/ [phone] ANTWAN SEPULVEDA 05/13 Referred for Appointment [place] (Phan [facility] D Team) [place](Taye gabriel [facility] D Team) OUTPATIENT [id number] wants to discuss nonsurg ical option for disc extrusi on L4-L5 CHERI RICHARD 05/14 Released w/o Limitations [place] (Phan [facility] D Team) [place](N eurosurge ry Clinic) OUTPATIENT [id number] Spinal stenosi s, 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 CHERI NOYOLA 05/21 [facility] [place]Taye [facility] D Team) OUTPATIENT [id number] f/u post neuro appt needs eval prior to CBRNE class CHERI RICHARD 06/02 Released w/o Limitations [place] ([facility] D Team) [place]P ain Manag[facility] t [facility]) OUTPATIENT [id number] Other interve rtebral disc displac ement, lumbosa cral region ALEX EGAN 06/02 Released w/o Limitations [place] ([facility]) [place](Taye gabriel [facility] D Team) TELE CONSULT [id number] Notes Entered by: PAIGE MARLEY 16 Jun 2020 1226 ------- ------- ------- ------- -- MED REFILLS /[id number] TS JEFF MOORE 06/16 Medication Refill Forwarded [place] ([facility] D Team) [place]([facility]) OUTPATIENT [id number] Annual A MICHEAL CEJA 06/18 Released w/o Limitations [facility] ([facility]) [place] D Team) TELE CONSULT [id number] Notes Entered by: Chandler MYRICK 09 Jul 2020 1429 ------- ------- ------- ------- -- Network Results - Pain Clinic [id number] CHERI RICHARD 07/09 [place] ([facility] D [facility]) [facility] A Team) TELE CONSULT [id number] Notes Entered by: Wallace RAE 18 Jul 2020 0821 ------- ------- ------- ------- -- PCR TEST REQUEST JEFF MOORE 07/17 Other Not Elsewhere Classified [facility] ([facility] A Team) [place] [facility] D Team) TELE CONSULT [id number] Notes Entered by: Alethea CASON 11 Aug 2020 1009 ------- ------- ------- ------- -- NEW PROFILE /RX REFIL [id number] CHERI MENG 08/11 Other Not Elsewhere Classified [facility] ([facility] D Team) [place]) OUTPATIENT [id number] f/u ALEX EGAN 08/11 Released w/o Limitations [facility] ([facility]) [facility]) TELE CONSULT [id number] Notes Entered by: Obed NOYOLA 26 Aug 2020 0902 ------- ------- ------- ------- -- Regardi ng profile CHERI NOYOLA S 08/26 [place] ([facility]) [facility]) OUTPATIENT [id number] Notes Entered by: TNOY ALLRED 27 Aug 2020 0929 ------- ------- ------- ------- -- TRI SERVICE PHA/CDB CHERI RICHARD Chad 08/27 Released w/o Limitations [place] ([facility]) [facility]) OUTPATIENT [id number] Notes Entered by: PHAN CLAYTON 03 Dec 2020 1448 ------- ------- ------- ------- -- Low back pain JARVIS HEWITT 12/03 Released w/o Limitations [facility] ([facility]) [facility]) OUTPATIENT [id number] Notes Entered by: PHAN CLAYTON 31 Dec 2020 1633 ------- ------- ------- ------- -- treatme nt JARVIS HEWITT 12/31 Released w/o Limitations [facility] ([facility]) [facility] A Team) OUTPATIENT [id number] PT REQ F2F/ L SIDE PX CAUSING DROPPIN G TO GROUND. BACK WONT ARCH OR STRETCH KAM OWEN 06/23 Released w/o Limitations [facility] ([facility] A Team) [facility](N [facility]) TELE CONSULT [id number] Notes Entered by: LEANNE MEADE 29 Jun 2021 1337 ------- ------- ------- ------- -- decline d referra l per LEANNE Flores 06/29 Other Not Elsewhere Classified [facility] ([facility]) [place]( a [facility] A Team) TELE CONSULT [id number] Notes Entered by: IZABEL BLOOD 21 Jul 2021 0907 ------- ------- ------- ------- -- ROBERTA BUCKLEY 07/21 Other Not Elsewhere Classified [facility] ([facility] A Team) [facility]) OUTPATIENT [id number] Audio -- ChioA MILA WELSH 08/12 Released w/o Limitations [facility] D Team) TELE CONSULT [id number] Notes Entered by: Matthew TSANG 25 Aug 2021 1740 ------- ------- ------- ------- -- Pos Covid-1 9 Result Patient needs to be notifie BURTON Vernon 08/25 [facility] ([facility] D Team) [facility] A Team) TELE CONSULT [id number] Notes Entered by: CHERIE ARCE 03 Sep 2021 1507 ------- ------- ------- ------- -- f/u RAMONA BALDWIN 09/03 Other Not Elsewhere Classified [facility] ([facility] A Team) [facility]) OUTPATIENT [id number] MHA;COM PLETED MICHEAL MONK 09/15 Released w/o Limitations [facility] ([facility]) [facility] Imms) OUTPATIENT [id number] Notes Entered by: ELVA PARDO 02 Nov 2021 1530 ------- ------- ------- ------- -- JOSEPH CANCINO 11/02 Released w/o Limitations [facility] ([facility] Imms) [place](Taye gabriel [facility]) OUTPATIENT [id number] Notes Entered by: JEFF MOORE 10 Nov 2021 1307 ------- ------- ------- ------- -- KAM Ward 11/10 Released w/o Limitations [place] (Phan [facility]) Procedures Combined list of: 1) Procedures from Department of Veterans Affairs facilities going back up to thelast 18 months, not all VA non-surgical procedures are included; 2) All procedures from the Department of Defense facilities. Procedure Procedure Type Code Date Perfomer Comments [facility] e HEALTH AND BEHAVIOR INTERVENTION, EACH 15 MINUTES, [id number]; GROUP (2 OR MORE PATIENTS) 2005 [facility] INDIVIDUAL PSYCHOTHERAPY, INSIGHT ORIENTED, BEHAVIOR MODIFYING AND/OR SUPPORTIVE, IN AN OFFICE OR OUTPATIENT FACILITY, APPROXIMATELY 20 TO 30 MINUTES [id number] WITH THE PATIENT 2003 [facility] MEDICAL NUTRITION THERAPY; GROUP (2 OR MORE INDIVIDUAL(S)), EACH 30 MINUTES 2003 [facility] GROUP PSYCHOTHERAPY (OTHER THAN OF A MULTIPLE-FAMILY GROUP) 2003 [facility] UNLISTED PSYCHIATRIC SERVICE OR PROCEDURE 2003 [facility] PSYCHIATRIC DIAGNOSTIC INTERVIEW EXAMINATION 2003 [facility] POSTOPERATIVE FOLLOW-UP VISIT, NORMALLY INCLUDED IN THE SURGICAL PACKAGE, INDICATE THAT EVALUATION & MANAGEMENT SERVICE WAS PERFORMED DURING A POSTOPERATIVE PERIOD REASON RELATED ORIGINAL PROCEDURE 2014 [facility] POSTOPERATIVE FOLLOW-UP VISIT, NORMALLY INCLUDED IN THE SURGICAL PACKAGE, INDICATE THAT EVALUATION & MANAGEMENT SERVICE WAS PERFORMED DURING A POSTOPERATIVE PERIOD REASON RELATED ORIGINAL PROCEDURE 2014 [facility] PHOTOREFRACTIVE KERATECTOMY (PRK) 2014 [facility] PHYS/OTH QUALIFIED HEALTH BIOMETRICS HEAD QUALIFIED,EDUCATION, TRAIN,LICENSURE/REGU LATION (WHEN APPLICABLE) EDUC SER RENDERED TO PATS IN A GRP SETTING (EG,,OBESITY ,OR DIABETIC INSTRUCT) 2014 [facility] COMPUTERIZED CORNEAL TOPOGRAPHY, UNILATERAL OR BILATERAL, WITH INTERPRETATION AND REPORT 2014 [facility] PRESCRIPTION OF OPTICAL AND PHYSICAL CHARACTERISTICS OF AND FITTING OF CONTACT LENS, WITH MEDICAL SUPERVISION OF ADAPTATION; CORNEAL LENS, BOTH EYES, EXCEPT FOR APHAKIA 2010 [facility] WEIGHT RECORDED (PAG) 2010 [facility] FITTING OF SPECTACLES, EXCEPT FOR APHAKIA; MONOFOCAL 2009 [facility] TELE ASSESS & MGT SRV PROV QUAL NONPHYS HLTH CARE PRO TO EST PAT,PARENT,GUARD NOT ORIG REL ASSESS & MGT SRV PROV W/IN PREV 7 DAYS NOR LEAD ASSESS & MGT SRV/PX W/IN NXT 24 HR/SOON APT;5-10 MIN MED DIS 2009 DoD ONLINE ASSESS &MANAG SERV PROVIDE,A QUAL NONPHYS HCP TO AN ESTABLISHED PAT/GUARDIAN,NOT ORIGINAT FRM RELAT ASSESS &MANAG SERV PROVIDE W/IN THE PREV 7 DAYS,USE THE [employer] NETWORK 2017 DoD ADMINISTRATION OF PATIENT-FOCUSED HEALTH [...] STATE 2016 [facility]D PHYSICAL THERAPY RE-EVALUATION 2015 DoD APPLICATION OF A MODALITY TO 1 OR [...] PERIOD REASON RELATED ORIGINAL PROCEDURE 2014 [facility] PHOTOREFRACTIVE KERATECTOMY (PRK) 2014 [facility] COMPUTERIZED CORNEAL TOPOGRAPHY, UNILATERAL OR BILATERAL, WITH INTERPRETATION AND REPORT 2014 [facility] NEUROPSYCHOLOGICAL TESTING (EG, [place] CARD SORTING TEST), ADMINISTERED BY A COMPUTER, WITH QUALIFIED HEALTH BIOMETRICS HEAD INTERPRETATION AND REPORT 2013 [facility] PRESCRIPTION OF OPTICAL AND PHYSICAL CHARACTERISTICS OF AND FITTING OF CONTACT LENS, WITH MEDICAL SUPERVISION OF ADAPTATION; CORNEAL LENS, BOTH EYES, EXCEPT FOR APHAKIA 2013 DoD PURE TONE AUDIOMETRY (THRESHOLD); AIR ONLY 2012 DoD OPHTHALMOLOGICAL SERVICES: MEDICAL EXAMINATION AND EVALUATION, WITH INITIATION OR CONTINUATION OF DIAGNOSTIC AND TREATMENT PROGRAM; COMPREHENSIVE, ESTABLISHED PATIENT, 1 OR MORE VISITS 2012 [facility] NEUROPSYCHOLOGICAL TESTING (EG, [place] CARD SORTING TEST), ADMINISTERED BY A COMPUTER, WITH QUALIFIED HEALTH BIOMETRICS HEAD INTERPRETATION AND REPORT 2011 [facility] PRESCRIPTION [...] FREE,30 MCG/0.3 ML DOSAG,DILUENT RECONSTIT;BOOSTER DOSE 2021 [facility] ADMINISTRATION OF PATIENT-FOCUSED HEALTH RISK ASSESSMENT INSTRUMENT (EG, HEALTH HAZARD APPRAISAL) WITH SCORING AND DOCUMENTATION, PER STANDARDIZED INSTRUMENT 2021 DoD TELE ASSESS & MGT SRV PROV QUAL NONPHYS HLTH CARE PRO TO EST PAT,PARENT,GUARD NOT ORIG REL ASSESS & MGT SRV PROV W/IN PREV 7 DAYS NOR LEAD ASSESS & MGT SRV/PX W/IN NXT 24H/SOON APT; 21-30 MIN MED DIS 2021 [facility] BRIEF COMM TECH-BASE SERV,E.G. VIRT CHK-IN,BY PHYS/OTH [...] DOCUMENTATION, PER STANDARDIZED INSTRUMENT 2018 [facility] SELF-CARE/HOME MANAGMENT TRAIN (EG,ACT OF DAILY LIVING (ADL) &COMPENSAT TRAIN,MEAL PREPARATION,SAFETY PROCS,AND INSTRUCT IN USE OF ASST TECHNOLOGY DEV/ADPT EQUIP) DIR ONE-ON-ONE CONT,EA 15 MINUTES 2018 [facility] BRIEF EMOTIONAL/BEHAVIORAL ASSESSMENT (EG, DEPRESSION INVENTORY, ATTENTION-DEFICIT/HY PERACTIVITY DISORDER [ADHD] SCALE), WITH SCORING AND DOCUMENTATION, PER STANDARDIZED INSTRUMENT 2018 [facility] THERAPEUTIC PROCEDURE, 1 OR MORE AREAS, EACH 15 MINUTES; THERAPEUTIC EXERCISES TO DEVELOP STRENGTH AND ENDURANCE, RANGE OF MOTION AND FLEXIBILITY 2018 [facility] PATIENT EDUCATION, NOT OTHERWISE CLASSIFIED, NON-PHYSICIAN PROVIDER, INDIVIDUAL, PER SESSION 2018 [facility] SELF-CARE/HOME MANAGMENT TRAIN (EG,ACT OF DAILY LIVING (ADL) &COMPENSAT TRAIN,MEAL PREPARATION,SAFETY PROCS,AND INSTRUCT IN USE OF ASST TECHNOLOGY DEV/ADPT EQUIP) DIR ONE-ON-ONE CONT,EA 15 MINUTES 2018 [facility] SELF-CARE/HOME MANAGMENT TRAIN (EG,ACT OF DAILY LIVING (ADL) &COMPENSAT TRAIN,MEAL PREPARATION,SAFETY PROCS,AND INSTRUCT IN USE OF ASST TECHNOLOGY DEV/ADPT EQUIP) DIR ONE-ON-ONE CONT,EA 15 MINUTES 2018 [facility] VIS FUNCT SCREEN,AUTOMAT/SEMI- AUTOMAT BILAT QUANT DETERM VISUAL ACUITY,OCULAR ALIGN,COLOR VISION,PSEUDOISOCHRO MAT PLATES,& FIELD VIS (MAY INC ALL/SOME SCRN DETERM FOR CONTRAST SENSITIV,VIS UND GLARE) 2007 [facility] Determination Of Refractive State Determination Of Refractive State 29096 2009 LEANNE COLLIER [facility] Ophthalmological New Patient Start Comprehensive Care Ophthalmological New Patient Start Comprehensive Care 30273 2009 LEANNE COLLIER [facility] Non-Physician Phone Call To Patient/Provider Brief (5-10min) Non-Physician Phone Call To Patient/Provider Brief (5-10min) 27092 2009 NADIRA MANZANARES [facility] Visual Function Screening Visual Function Screening 36464 2007 SILVIA AGGARWAL [facility] Health And Behav Intervention, Each Additional 15 Min Grp (2 Or More) Health And Behav Intervention, Each Additional 15 Min Grp (2 Or More) 06619 2005 MONICA GODINEZ Phys Therapy Education Self Care Training - Per 15 Minutes Phys Therapy Education Self Care Training - Per 15 Minutes 49403 2018 ERLIN LUNDBERG Physical Therapy Service Re-Evaluation Physical Therapy Service Re-Evaluation 99221 2018 ERLIN LUNDBERG Psychometric Emotional / Behavioral A e ment Psychometric Emotional / Behavioral Assessment 64384 2018 WING TRAN Preventive Medicine Administration Of Health Risk Questionnaire Patient-Focused Preventive Medicine Administration Of Health Risk Questionnaire Patient-Focused 28611 2018 WING TRAN Internet Med Svc Qual Nonphys Healthcare Prof Up To 7 Days Estab Patient Internet Med Svc Qual Nonphys Healthcare Prof Up To 7 Days Estab Patient 47942 2018 WING TRAN A isted Exercises For ROM Assisted Exercises For ROM 65099 2018 ERLIN LUNDBERG Physical Therapy Service Re-Evaluation Physical Therapy Service Re-Evaluation 55249 2018 ERLIN LUNDBERG Patient education, not otherwise cla ified, non-physician provider, individual, per se ion Patient education, not otherwise classified, non-physician provider, individual, per session S9445 2018 KATLHEEN MATSON Threshold Audiogram (Pure Tone) Automated Threshold Audiogram (Pure Tone) Automated 0208T 2018 KATHLEEN MATSON Phys Therapy Education Self Care Training - Per 15 Minutes Phys Therapy Education Self Care Training - Per 15 Minutes 64946 2018 ERLIN LUNDBERG Physical Therapy Service Re-Evaluation Physical Therapy Service Re-Evaluation 10333 2018 ERLIN LUNDBERG Phys Therapy Education Self Care Training - Per 15 Minutes Phys Therapy Education Self Care Training - Per 15 Minutes 60216 2018 ERLNI LUNDBERG Physical Therapy Service Evaluation Low Complexity Physical Therapy Service Evaluation Low Complexity 83851 2018 ERLIN LUNDBERG Internet Med Svc Qual Nonphys Healthcare Prof Up To 7 Days Estab Patient Internet Med Svc Qual Nonphys Healthcare Prof Up To 7 Days Estab Patient 24420 2017 MAURO MARTIN Preventive Medicine Administration Of Health Risk Questionnaire Patient-Focused Preventive Medicine Administration Of Health Risk Questionnaire Patient-Focused 95472 2017 NORMA RADFORD [facility] Preventive Medicine Administration Of Health Risk Questionnaire Patient-Focused Preventive Medicine Administration Of Health Risk Questionnaire Patient-Focused 81118 2017 ERLIN SHEPHERD DoD Threshold Audiogram (Pure Tone) Threshold Audiogram (Pure Tone) 16264 2017 RIRI PASTOR DoD Threshold Audiogram (Pure Tone) Threshold Audiogram (Pure Tone) 39250 2016 MARIBEL SNYDER Determination Of Refractive State Determination Of Refractive State 43137 2016 MERCEDEZ LANDIN Ophthalmological Prior Patient Start Comprehensive Care Ophthalmological Prior Patient Start Comprehensive Care 46184 2016 MERCEDEZ LANDIN Physical Therapy Service Re-Evaluation Physical Therapy Service Re-Evaluation 75112 2015 TONY CATHERINE Modalities Electrical Stimulation Modalities Electrical Stimulation 97447 2015 TONY CATHERINE Modalities Heat Hot Packs Modalities Heat Hot Packs 40704 2015 TONY CATHERINE A isted Exercises For ROM Assisted Exercises For ROM 47881 2015 TONY CATHERINE Physical Therapy Service Evaluation Physical Therapy Service Evaluation 40727 2015 TONY CATHERINE Threshold Audiogram (Pure Tone) Threshold Audiogram (Pure Tone) 66990 2015 EVELYN MATSON Determination Of Refractive State Determination Of Refractive State 37571 2015 ARANMKATHLEEN, LAURA A [place] Ophthalmological Prior Patient Start Comprehensive Care Ophthalmological Prior Patient Start Comprehensive Care 17394 2015 ARANMOLATE, LAURA A [place] Determination Of Refractive State Determination Of Refractive State 97714 2014 ARANMOLATE, LAURA A DoD Ophthalmological Prior Patient Start Comprehensive Care Ophthalmological Prior Patient Start Comprehensive Care 67405 2014 ARANMOLATE, LAURA A DoD Postoperative Visit, Without Charge Postoperative Visit, Without Charge 29939 2014 ARANMOLATE, LAURA A DoD Postoperative Visit, Without Charge Postoperative Visit, Without Charge 99552 2014 ARANMOLATE, LAURA A [place] Photorefractive keratectomy (PRK) Photorefractive keratectomy (PRK) S0810 2014 MELECIO YARBROUGHMILAYO A [place] Postoperative Visit, Without Charge Postoperative Visit, Without Charge 80703 2014 INDIGO WALTON Postoperative Visit, Without Charge Postoperative Visit, Without Charge 34800 2014 PREMA ROSALES Photorefractive keratectomy (PRK) Photorefractive keratectomy (PRK) S0810 2014 KHALIF PSOEY Physician Supervised Group Educational Services Physician Supervised Group Educational Services 51026 2014 AMAN LISA Determination Of Refractive State Determination Of Refractive State 17269 2014 INDIGO WALTON Fundoscopic Exam Extensive Initial Exam Fundoscopic Exam Extensive Initial Exam 16333 2014 INDIGO WALTON Computerized Corneal Topography Computerized Corneal Topography 83214 2014 INDIGO WALTON Ophthalmological New Patient Start Comprehensive Care Ophthalmological New Patient Start Comprehensive Care 65284 2014 INDIGO WALTON Corneal Pachymetry, Bilateral With Interpret And Report Corneal Pachymetry, Bilateral With Interpret And Report 03701 2014 INDIGO WALTON Computerized Corneal Topography Computerized Corneal Topography 06096 2014 MELECIO YARBROUGHMILAYO A [place] Corneal Pachymetry, Bilateral With Interpret And Report Corneal Pachymetry, Bilateral With Interpret And Report 93607 2014 MELECIO YARBROUGHMILAYO A [place] Determination Of Refractive State Determination Of Refractive State 93532 2014 ARAKELSEA LAURA A [facility] Ophthalmological Prior Patient Start Comprehensive Care Ophthalmological Prior Patient Start Comprehensive Care [id number] 2014 ARAKELSEA, LAURA A Maite Psychometric Neuropsych Testing Battery Admin By Computer Psychometric Neuropsych Testing Battery Admin By Computer 38979 2013 JUANITA FIELDS Prescription And Fitting Bilateral Corneal Lenses (Not For Aphakia) Prescription And Fitting Bilateral Corneal Lenses (Not For Aphakia) 93271 2013 BRITNI GARCIA [facility] Fitting Monofocal Except For Aphakia [facility] Fitting Monofocal Except For Aphakia 81805 2013 BRITNI GARCIA Determination Of Refractive State Determination Of Refractive State 05990 2013 BRITNI GARCIA Ophthalmological Prior Patient Start Comprehensive Care Ophthalmological Prior Patient Start Comprehensive Care [id number] BRITNI GARCIA Threshold Audiogram (Pure Tone) Threshold Audiogram (Pure Tone) 63113 2012 SYLVIE OLIVO Ophthalmological Prior Patient Start Comprehensive Care Ophthalmological Prior Patient Start Comprehensive Care [id number] NONA LUCIANO [employer] [facility] Fitting Monofocal Except For Aphakia [facility] Fitting Monofocal Except For Aphakia [id number] NONA LUCIANO Prescription And Fitting Bilateral Corneal Lenses (Not For Aphakia) Prescription And Fitting Bilateral Corneal Lenses (Not For Aphakia) 2012 NONA LUCIANO Rx Biofinity Toric 8.7/14.5/ OD: -0.75-0.54p125 OS: -0.75-0.15b034 Daily wear (12-14 hours); replace monthly; clean with MPS (rub & rinse to prevent build up) Stressed compliance with prescribed lens care regimen to reduce risk of infection and other complications [facility] Determination Of Refractive State Determination Of Refractive State 2012 NONA LUCIANO Rx subj Order FOC/5A/Inserts [facility] Psychometric Neuropsych Testing Battery Admin By Computer Psychometric Neuropsych Testing Battery Admin By Computer [id number] 2011 LISA CADET Prescription And Fitting Bilateral Corneal Lenses (Not For Aphakia) Prescription And Fitting Bilateral Corneal Lenses (Not For Aphakia) 2011 NONA LUCIANO Rx Biofinity Toric 8.7/14.5/ OD: -0.75-0.98p319 OS: -0.50-0.49g547 Daily wear (12-14 hours); replace monthly; clean with MPS (rub & rinse to prevent build up) Stressed compliance with prescribed lens care regimen to reduce risk of infection and other complications [facility] [employer] [facility] Fitting Monofocal Except For Aphakia [facility] Fitting Monofocal Except For Aphakia [id number] NONA LUCIANO Determination Of Refractive State Determination Of Refractive State 48579 2011 NONA LUCIANO Rx subj Order FOC/S9 or 5A/inserts [facility] Ophthalmological New Patient Start Comprehensive Care Ophthalmological New Patient Start Comprehensive Care 34225 2011 NONA LUCIANO Prescription And Fitting Bilateral Corneal Lenses (Not For Aphakia) Prescription And Fitting Bilateral Corneal Lenses (Not For Aphakia) 97031 2010 LEANNE COLLIER [facility] [facility] Fitting Monofocal Except For Aphakia [facility] Fitting Monofocal Except For Aphakia 02326 2010 LEANNE COLLIER FOC, S9, GMI [facility] Ophthalmological Prior Patient Start Comprehensive Care Ophthalmological Prior Patient Start Comprehensive Care 40687 2010 LEANNE COLLIER Determination Of Refractive State Determination Of Refractive State 28582 2010 LEANNE COLLIER Weight Recorded 2010 BURTON OCONNELL Lipid Panel Test Results Documented And Reviewed Lipid Panel Test Results Documented And Reviewed 3011F 2010 BURTON OCONENLL Screening Test Of Visual Acuity, Quantitative, Bilateral Screening Test Of Visual Acuity, Quantitative, Bilateral 63216 2010 BURTON OCONNELL [facility] [facility] Fitting Monofocal Except For Aphakia [facility] Fitting Monofocal Except For Aphakia 56943 2009 LEANNE COLLIER FOC, GMIx2 [facility] Preventive Medicine Administration Of Health Risk Questionnaire Patient-Focused Preventive Medicine Administration Of Health Risk Questionnaire Patient-Focused [id number] CHERI RICHARD Vital Signs Recorded Vital Signs Recorded ANA PAULA RUBIO Patient Counseling Medical Management Individual Patient Patient Counseling Medical Management Individual Patient [id number] ANA PAULA RUBIO Waiver services; not otherwise specified (NOS) Waiver services; not otherwise specified (NOS) [id number] MONICA ERWIN Phys Therapy Education Self Care Training - Per 15 Minutes Phys Therapy Education Self Care Training - Per 15 Minutes [id number] MONICA ERWIN Non-Physician Phone Call To Patient/Provider Brief (5-10min) Non-Physician Phone Call To Patient/Provider Brief (5-10min) [id number] CEHRI MENG [facility] Non-Physician Phone Call To Pt/Provider Intermed (11-20 min) Non-Physician Phone Call To Pt/Provider Intermed (11-20 min) [id number] ANTWAN SEPULVEDA [facility] Brief communication technology-based service, e.g. virtual check-in, by a physician or other qualified health care profkeegan kingsley who can report evaluation and management services, provided to an established patient, not originating from a related E/M service provided within the previous 7 days nor leading to an E/M service or procedure within the next 24 hours or soonest available appointment; 5-10 minutes of medical discu ion Brief communication technology-based service, e.g. virtual check-in, by a physician or other qualified health manager intensive care who can report evaluation and management services, provided to an established patient, not originating from a related E/M service provided within the previous 7 days nor leading to an E/M service or procedure within the next 24 hours or soonest available appointment; 5-10 minutes of medical discussion [id number] SANTO CEJA [facility] Physical Therapy Service Evaluation Low Complexity Physical Therapy Service Evaluation Low Complexity 44880 JARVIS VIDES Physical Therapy Neuromuscular Re-education Physical Therapy Neuromuscular Re-education 78567 [facility] Biofeedback Training By Any Modality Biofeedback Training By Any Modality 81470 JARVIS VIDES Mobilization Soft Ti ue Mobilization Soft Tissue 07988 JARVIS VIDES Modalities Electrical Stimulation Modalities Electrical Stimulation 18611 [facility] Patient education, not otherwise cla ified, non-physician provider, individual, per se ion Patient education, not otherwise classified, non-physician provider, individual, per session [id number] MILA WELSH Threshold Audiogram (Pure Tone) Automated Threshold Audiogram (Pure Tone) Automated 0208T MILA WELSH Non-Physician Phone Call To Pt/Provider Lengthy (21-30 min) Non-Physician Phone Call To Pt/Provider Lengthy (21-30 min) 83313 RAMONA HERNANDEZ Vaccine SARS-CoV-2 mRNA-LNP Toy Protein Preservative Free 30mcg/0.3mL Diluent Reconstituted IM Vaccine SARS-CoV-2 mRNA-LNP Toy Protein Preservative Free 30mcg/0.3[place] [id number] JOSEPH MARCOS COVID-19, 30 mcg/0.3 mL dose (Pfizer 12+ years); Series #: 3; 0.3 mL; IM; Right Arm; Mfg: [employer]; Lot: [id number]; VIS given (Emiliano: 08/17/2021). DoD Vacc SARS-CoV-2 mRNA-LNP Toy Protein Preservative Free 30mcg/0.3mL Diluent Reconstituted IM Booster Dose Vacc SARS-CoV-2 mRNA-LNP Toy Protein Preservative Free 30mcg/0.3mL Diluent Reconstituted IM Booster Dose 55234 JOSEPH MARCOS [facility] Social History Combined list of available smoking, tobacco, and other social history from Department of Defense and Veterans Affairs facilities. Social History Type Response Date Comment [facility] e This section is an empty social history section. [employer]
--- NOTE | 2025-07-22 07:31 | MHC.PC.OV ---
Intake Visit Reasons: Cervical neck pain Allergies No Known Allergies Allergy (Verified 07/22/25 07:34) Medication List - Last Reconciled 07/22/25 by LOULOU Lamar cyclobenzaprine 10 mg PO BEDTIME PRN escitalopram oxalate (Lexapro) 10 mg PO DAILY prazosin 4 mg PO BEDTIME Tobacco use date assessed: 06/27/25 Dental Screening Dental Screen Date: 06/27/25 HPI Cervical neck pain HPI Details History of Present Illness The patient is a 40-year-old male presenting for a follow-up visit for ongoing chronic cervical neck pain. He describes the discomfort as being located on the left side, in the inner trapezius region. The pain is exacerbated by turning his head from side to side and by neck flexion, particularly with chin tucks. He reports that neck extension with chin raises does not worsen the pain as much. He experiences a sensation of pressure and a feeling that the area needs to pop. He denies any radicular symptoms into the bilateral upper extremities. Review of Systems - Musculoskeletal: Reports chronic left-sided cervical pain localized to the inner trapezius, exacerbated by neck flexion and rotation. Reports a feeling of pressure and a need to pop the area. - Neurological: Denies radiating symptoms into the bilateral upper extremities. Plan 1. Cervicalgia The patient's chronic left-sided neck pain in the medial trapezius region warrants further investigation and multi-modal treatment. X-rays of the cervical spine will be obtained to evaluate for underlying structural abnormalities. A referral will be placed for physical therapy to address the musculature and biomechanics. A muscle relaxant will be prescribed to help alleviate muscle tension and discomfort. Discussion Notes I have discussed with the patient the plan for his chronic neck pain, which includes obtaining cervical spine x-rays for further evaluation, initiating a course of a muscle relaxer, and starting physical therapy. Patient Instructions - We will get X-rays of your neck to get a better look at what is causing your pain. - I am prescribing a muscle relaxer to help with the discomfort. - We are also setting you up with physical therapy to help improve your symptoms. [facility] Medical History Right rotator cuff tear Tinnitus Sciatica Lumbar disc herniation Surgical History No pertinent past surgical history Social History Housing: House Patient Tobacco Use Status: Former Tobacco user e-Cigarette/Vaping Use: Never Used service: Yes Current occupational status: employed Current occupation: [employer] Cognitive needs: No Hearing needs: No Vision needs: No Questionnaire Thrive Questionnaire Date Thrive assessed: 10/30/24 I am a: Patient What is your living situation today?: I have a steady place to live Within the past 12 months, did the food you bought not last and you didn't have the money to get more?: Never true Within the past 12 months, did you worry whether your food would run out before you got money to buy more?: Never true Do you have trouble paying for medicines?: No Do you have trouble getting transportation to medical appointments?: No Do you have trouble paying your heating and electricity bill?: No Do you have trouble taking care of your child, family member or friend?: No Do you have trouble with day-to-day activities such as bathing, preparing meals, shopping, managing finances, etc.?: No Are you currently unemployed and looking for a job?: No Are you interested in more education?: No Please select the resources that you would like help with: None Currently or been in a relationship where the following occur: No concerns reported THRIVE Score: 0 PRICE-7 AMB Questionnaire PRICE-7 Date PRICE - 7 assessed: 06/27/25 Source: Developed by Drs. Kavon Feliz, Belen Lopez, Adalid Smith and colleagues, with an educational fred from [employer]. Physical exam (Primary Care) Tobacco/Smoking Status: Tobacco use Status Tobacco use date assessed 06/27/25 06/27/25 13:19 Patient Tobacco Use Status Former Tobacco user 06/27/25 13:11 e-Cigarette/Vaping Use Never Used 06/27/25 13:11 Thrive Assessment: Date of Thrive Assessment Date Thrive assessed 10/30/24 06/27/25 13:11 Currently or been in a relationship where the following occur: No concerns reported Telehealth Telehealth Telehealth Platform: [facility] Location of provider rendering services: practice address Location of patient: address on file Patient Identification confirmed using: Name, : Yes Telehealth method: video Patient verbally consented to treatment: Yes Patient verbally consented to billing insurance company: Yes Patient informed of any privacy concerns related to visit: Yes Minutes spent on Phone/Video with Pt.: 12 Coding Level of Care Code Tele Est Pt Level 3 (80384) Diagnoses Cervical neck pain with evidence of disc disease M50.90 Assessment & Plan Assessment & Plan (1) Cervical neck pain with evidence of disc disease: Code(s): M50.90 - Cervical disc disorder, unspecified, unspecified cervical region Category: Medical Plan . Orders: Orders XR cervical spine 2V Today M50.90 - Cervical disc disorder, unspecified, unspecified cervical region PT Evaluation and Treatment Today M50.90 - Cervical disc disorder, unspecified, unspecified cervical region Medications: New cyclobenzaprine 10 mg PO BEDTIME PRN 14 tabs 0RF muscle spasm
== END 2025-07-22 09:53 | disposition home or self-care (01) ==
LOC: HO.HMCC 06:40
PROVIDERS: PCP Nurse Practitioner Family; Visit Provider Nurse Practitioner Family
DX: M50.90 Cervical disc disorder, unspecified, unspecified cervical region (principal)